=== PATIENT | female | born 1955 | race Hispanic/Latino ===

== ENCOUNTER 2018-10-06 19:55 | Emergency (ER) | payer OTHER ==
--- OUTSIDE RECORDS SUMMARY | 2018-10-06 19:57 | XMS REPORT ---
:1955 Author Organization eClinicalWorks Care Team Providers Name Role Phone Jonobrian Leah Provider Role Unavailable Allergies, Adverse Reactions, Alerts Substance Reaction Event Type Nitrofurantoin Info Not Available Drug Allergy Problems Problem Type Condition Code Onset Dates Condition Status Problem Hyperlipidemia, unspecified E78.5 Active hyperlipidemia type Problem Uncontrolled type 2 diabetes E11.65 Active mellitus without complication, without long-term current use of insulin Problem Fatigue, unspecified type R53.83 Active Assessment Hyperlipidemia, unspecified E78.5 Active hyperlipidemia type Assessment Fatigue, unspecified type R53.83 Active Problem Allergic rhinitis, unspecified J30.9 Active seasonality, unspecified trigger Assessment Uncontrolled type 2 diabetes E11.65 Active mellitus without complication, without long-term current use of insulin Medications Medication Code Code Instructions Start End Status Dosage System Date Date Glucose [facility] [address]-55 n/s Check BS February Active as directed testing strips once daily [address] [facility] 0 Check BS once February Active Use as Monitor daily 2017 [address] MetFORMIN HCl [facility] 24980990589 500 MG Orally February Active 1 tablet ER Once a day 2017 with evening meal Pravastatin [facility] 20319090816 20 MG Orally Active 1 tablet Sodium Once a day Metformin HCl [facility] 34104179882 500 MG Orally Active 1 tablet Twice a day with meals Lancets [facility] 95869695809 - Check BS February Active as directed once daily 2017 Results No Known Results Summary Purpose eClinicalWorks Submission
--- OUTSIDE RECORDS SUMMARY | 2018-10-06 19:57 | XMS REPORT ---
:1955 Author Organization e[employer] Care Team Providers Name Role Phone Moira Gutierrez Provider Role Unavailable Allergies No Known Allergies Problems Problem Type Condition Code Onset Dates Condition Status Problem Fatigue, unspecified type R53.83 Active Problem Hyperlipidemia, unspecified E78.5 Active hyperlipidemia type Problem Female incontinence N39.3 Active Problem Uncontrolled type 2 diabetes E11.65 Active mellitus without complication, without long-term current use of insulin Problem Allergic rhinitis, unspecified J30.9 Active seasonality, unspecified trigger Medications Medication Code System Code Instructions Start Date End Date Status Dosage Cipro [facility] 91649945884 500 MG Orally Jul 14, Jul 06, Active 1 tablet every 12 hrs 2017 2017 Results No Known Results Summary Purpose eClinicalWorks Submission
--- OUTSIDE RECORDS SUMMARY | 2018-10-06 19:57 | XMS REPORT ---
:1955 Author Organization eClinicalWorks Care Team Providers Name Role Phone Moira Gutierrez Provider Role Unavailable Allergies, Adverse Reactions, Alerts Substance Reaction Event Type Nitrofurantoin Info Not Available Drug Allergy Problems Problem Type Condition Code Onset Dates Condition Status Problem Fatigue, unspecified type R53.83 Active Problem Hyperlipidemia, unspecified E78.5 Active hyperlipidemia type Problem Female incontinence N39.3 Active Assessment Hematuria, unspecified type R31.9 Active Problem Uncontrolled type 2 diabetes E11.65 Active mellitus without complication, without long-term current use of insulin Problem Allergic rhinitis, unspecified J30.9 Active seasonality, unspecified trigger Medications Medication Code Code Instructions Start End Status Dosage System Date Date Blood Glucose [place] 0 Check BS once February Active Use as Monitor daily 2017 directed Lancets [facility] 57248314037 - Check BS February Active as directed once daily 2017 Glucose [facility] [address]-71 n/s Check BS February Active as directed testing strips once daily 2017 Pravastatin ND 58592019146 20 MG Orally Active 1 tablet Sodium Once a day Metformin HCl NDC 99666990293 500 MG Orally Active 1 tablet Twice a day with meals MetFORMIN HCl ND 34411979398 500 MG Orally February Active 1 tablet ER Once a day 2017 with evening meal Results Name Result Date Reference Range Unit Abnormality Flag URINALYSIS AUTO W/O SCOPE (89363) ----NIT pos [id number] ----URO 0.2 20180712 ----PROTEIN neg [id number] ----pH 7.0 20180712 ----BLO 2t [id number] ----GLUCOSE neg [id number] ----SHILO neg [id number] ----BILIRUBIN neg [id number] ----KETONES neg [id number] ----SPECIFIC GRAVITY 1.015 [id number] Summary Purpose eClinicalWorks Submission
--- OUTSIDE RECORDS SUMMARY | 2018-10-06 19:58 | XMS REPORT ---
:1955 Author Organization eClinicalWorks Care Team Providers Name Role Phone Leah Frank Provider Role Unavailable Allergies, Adverse Reactions, Alerts Substance Reaction Event Type Nitrofurantoin Info Not Available Drug Allergy Problems Problem Type Condition Code Onset Dates Condition Status Problem Allergic rhinitis, unspecified J30.9 Active seasonality, unspecified trigger Problem Fatigue, unspecified type R53.83 Active Problem Hyperlipidemia, unspecified E78.5 Active hyperlipidemia type Problem Pain of left foot M79.672 Active Problem Vitamin D deficiency E55.9 Active Problem Pain in right foot M79.671 Active Problem Female incontinence N39.3 Active Problem Uncontrolled type 2 diabetes E11.65 Active mellitus without complication, without long-term current use of insulin Problem Bilateral low back pain without M54.5 Active sciatica, unspecified chronicity Problem Controlled type 2 diabetes mellitus E11.9 Active without complication, without long-term current use of insulin Assessment Pain of left foot M79.672 Active Assessment Bilateral low back pain without M54.5 Active sciatica, unspecified chronicity Assessment Pain in right foot M79.671 Active Assessment Hyperlipidemia, unspecified E78.5 Active hyperlipidemia type Assessment Urinary frequency R35.0 Active Assessment Fatigue, unspecified type R53.83 Active Assessment Controlled type 2 diabetes mellitus E11.9 Active without complication, without long-term current use of insulin Assessment Vitamin D deficiency E55.9 Active Medications Medication Code Code Instructions Start End Status Dosage System Date Date Lancets [facility] 47662926911 - Check BS February Active as directed once daily 2017 Pravastatin ND 28785172598 20 MG Orally Active 1 tablet Sodium Once a day Glucose [facility] [address]-83 n/s Check BS February Active as directed testing strips once daily 2017 MetFORMIN HCl ND 14669223273 500 MG Orally February Active 1 tablet ER Once a day 2017 with evening meal Vitamin D [facility] 48961596035 2000 UNIT Aug 19, Active 2 capsules Orally Once a 2018 (otc--4,000 day iu) Blood Glucose ND 0 Check BS february Active Use as Monitor daily 2017 directed Results No Known Results Summary Purpose eClinicalWorks Submission
--- OUTSIDE RECORDS SUMMARY | 2018-10-06 19:58 | XMS REPORT ---
[...] Start End Status Dosage System Date Date Metformin HCl [facility] 27921584301 500 MG Orally Active 1 tablet Twice a day with meals Glucose [facility] [address]-62 n/s Check BS February Active as directed testing strips once daily 2017 MetFORMIN HCl ND 67279301699 500 MG Orally February Active 1 tablet ER Once a day 2017 with evening meal Pravastatin ND 50052209610 20 MG Orally Active 1 tablet Sodium Once a day Blood Glucose ND 0 Check BS february Active Use as Monitor daily 2017 directed Lancets [facility] 89747833968 - Check BS February Active as directed once daily 2017 Results Name Result Date Reference Range Unit Abnormality Flag URINALYSIS AUTO W/O SCOPE ([id number]) ----NIT neg [id number] ----URO 0.2 20180725 ----PROTEIN neg [id number] ----pH 6.0 20180725 ----BLO 2+ [id number] ----GLUCOSE neg [id number] ----SHILO neg [id number] ----BILIRUBIN neg [id number] ----KETONES neg [id number] ----SPECIFIC GRAVITY 1.020 20180725 Summary Purpose eClinicalWorks Submission
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
[2018-10-06] MEDS ORDERED: MUPIROCIN 2% OINT 22GM TUBE TOP ONE (21:40)
[2018-10-06] MEDS ORDERED: SILVER SULFADIAZINE 1% 25 GM TOP ONE (21:41)
== END 2018-10-06 21:56 | disposition home or self-care (01) ==
LOC: ER 19:55
DX: T21.23XA Burn of second degree of upper back, initial encounter (principal); E11.9 Type 2 diabetes mellitus without complications; E78.5 Hyperlipidemia, unspecified; T31.0 Burns involving less than 10% of body surface; X11.8XXA Contact with other hot tap-water, initial encounter; Y93.G3 Activity, cooking and baking; Y92.009 Unspecified place in unspecified non-institutional (private) residence as the place of occurrence of the external cause
CPT/HCPCS: 99283

== ENCOUNTER 2019-07-06 09:00 | Day surgery (SDC) | payer OTHER ==
[2019-07-03 11:46] LABS: Absolute Lymphocytes (CBC) 1.3 K/uL (0.7-4.9); Basophils % 0.3 % (0-1.3); Hematocrit 43.6 % (36.0-45.0); Lymphocytes % 24.3 % (15.3-44.8); MPV 9.8 fL (7.6-11.3); RBC Red Blood Cell Count 4.85 M/uL (3.86-4.86)
[2019-07-03 11:56] LABS: Urine Appearance CLEAR; Urine Bilirubin NEGATIVE (NEG); Urine Blood 2+ (NEG); Urine Color YELLOW; Urine Glucose NEGATIVE (NEG); Urine Protein NEGATIVE (NEG); Urine Specific Gravity 1.015 (1.005-1.030)
[2019-07-03 12:11] LABS: Urine Microscopic Reflex ORDER UMIC
[2019-07-03 12:32] LABS: Urine Bacteria <20 /HPF (<20); Urine RBC <5 /HPF (NONE SEEN)
[2019-07-03 12:33] LABS: Urine Culture Reflex Order NOT NEEDED
--- OUTSIDE RECORDS SUMMARY | 2019-07-06 09:02 | XMS REPORT ---
[...] Status Dosage System Date Date Metformin HCl [facility] 21393019695 500 MG Orally Active 1 tablet Twice a day with meals Glucose [facility] [address]-62 n/s Check BS February Active as directed testing strips once daily 2017 MetFORMIN HCl ND 12439982438 500 MG Orally February Active 1 tablet ER Once a day 2017 with evening meal Pravastatin ND 75287915122 20 MG Orally Active 1 tablet Sodium Once a day Blood Glucose ND 0 Check BS february Active Use as Monitor daily 2017 directed Lancets [facility] 65793681443 - Check BS February Active as directed once daily 2017 Results Name Result Date Reference Range Unit Abnormality Flag URINALYSIS AUTO W/O SCOPE (40372) ----NIT neg [id number] ----URO 0.2 20180725 ----PROTEIN neg [id number] ----pH 6.0 20180725 ----BLO 2+ 20180725 ----GLUCOSE neg [id number] ----SHILO neg [id number] ----BILIRUBIN neg [id number] ----KETONES neg [id number] ----SPECIFIC GRAVITY 1.020 20180725 Summary Purpose eClinicalWorks Submission
--- OUTSIDE RECORDS SUMMARY | 2019-07-06 09:02 | XMS REPORT ---
[...] Start Date End Date Status Dosage Cipro [facility] 33067067374 500 MG Orally Jul 14, Jul 06, Active 1 tablet every 12 hrs 2017 2017 Results No Known Results Summary Purpose eClinicalWorks Submission
--- OUTSIDE RECORDS SUMMARY | 2019-07-06 09:02 | XMS REPORT ---
:1955 Author Organization eClinicalWorks Care Team Providers Name Role Phone Leah Frank Provider Role Unavailable Allergies No Known Allergies Problems Problem Type Condition Code Onset Dates Condition Status Problem Allergic rhinitis, unspecified J30.9 Active seasonality, unspecified trigger Problem Fatigue, unspecified type R53.83 Active Problem Hyperlipidemia, unspecified E78.5 Active hyperlipidemia type Assessment Hyperlipidemia, unspecified E78.5 Active hyperlipidemia type Problem [...] Start End Status Dosage System Date Date Vitamin D [facility] 82539036330 1999 UNIT Aug 19, Active 2 capsules Orally Once a 2017 (otc--4,000 day iu) Cipro [facility] 18019998938 500 MG Orally Active 1 tablet every 12 hrs Pravastatin [facility] 03569310724 20 mg Orally Active 1 tablet Sodium Once a day in evening Glucose [facility] [address]-37 n/s Check BS February Active as directed testing strips once daily 2017 Blood Glucose [facility] 0 Check BS once February Active Use as Monitor daily 2017 directed Lancets [facility] 49785982721 - Check BS February Active as directed once daily 2017 MetFORMIN HCl ND 37699478260 500 MG Orally February Active 1 tablet ER Once a day 2017 with evening meal Results No Known Results Summary Purpose eClinicalWorks Submission
--- OUTSIDE RECORDS SUMMARY | 2019-07-06 09:02 | XMS REPORT ---
:1955 Author Organization eClinicalWorks Care Team Providers Name Role Phone Leah Frank Provider Role Unavailable Allergies, Adverse Reactions, Alerts Substance Reaction Event Type Nitrofurantoin Info Not Available Drug Allergy Problems Problem Type Condition Code Onset Dates Condition Status Problem Fatigue, unspecified type R53.83 Active Problem Controlled type 2 diabetes mellitus E11.9 Active without complication, without long-term current use of insulin Problem Female incontinence N39.3 Active Problem Abdominal bloating R14.0 Active Problem Recurrent urinary tract infection N39.0 Active Problem Overweight (BMI 25.0-29.9) E66.3 Active Problem Pain in right foot M79.671 Active Problem Bilateral low back pain without M54.5 Active sciatica, unspecified chronicity Problem Pain of left foot M79.672 Active Problem Vitamin D deficiency E55.9 Active Assessment Hyperlipidemia, unspecified E78.5 Active hyperlipidemia type Assessment Recurrent urinary tract infection N39.0 Active Assessment Overweight (BMI 25.0-29.9) E66.3 Active Assessment Vitamin D deficiency E55.9 Active Problem Allergic rhinitis, unspecified J30.9 Active seasonality, unspecified trigger Assessment Abdominal bloating R14.0 Active Problem Uncontrolled type 2 diabetes E11.65 Active mellitus without complication, without long-term current use of insulin Assessment Controlled type 2 diabetes mellitus E11.9 Active without complication, without long-term current use of insulin Problem Hyperlipidemia, unspecified E78.5 Active hyperlipidemia type Medications Medication Code Code Instructions Start End Status Dosage System Date Date Lancets [facility] [id number] - Check BS February Active as once daily 2017 directed Pravastatin [facility] 03000548172 20 mg Orally Active 1 tablet Sodium Once a day in evening Bactrim DS [facility] 56424233775 800-160 MG January Active 1 tablet Orally Twice a 2018 Glucose testing [facility] [address]-82 n/s Check BS February Active as strips once daily 2017 directed Cipro [facility] 62152145266 500 MG Orally Active 1 tablet every 12 hrs MetFORMIN HCl [facility] 06963906731 500 MG Orally February Active 1 tablet ER Once a day 2017 Vitamin D [facility] 09401427845 2000 UNIT Aug 19, Active 2 capsules Orally Once a 2017 (otc--4, day 0 iu) Trimethoprim ND 01056424298 100 MG Orally January Active 1 tablet Once a day 2018 Blood Glucose [facility] 0 Check BS once February Active Use as Monitor daily 2017 directed Results No Known Results Summary Purpose eClinicalWorks Submission
--- OUTSIDE RECORDS SUMMARY | 2019-07-06 09:02 | XMS REPORT ---
[...] current use of insulin Medications Medication Code System Code Instructions Start End Date Status Dosage Date Trimethoprim [facility] 49133143404 100 MG Orally February 06, Aug 05, Active 1 tablet Once a day 2018 2018 Results No Known Results Summary Purpose eClinicalWorks Submission
--- OUTSIDE RECORDS SUMMARY | 2019-07-06 09:02 | XMS REPORT ---
[...] End Status Dosage System Date Date Lancets [facility] 26519326190 - Check BS February Active as directed once daily 2017 Pravastatin ND 47443379198 20 MG Orally Active 1 tablet Sodium Once a day Glucose [facility] [address]-16 n/s Check BS February Active as directed testing strips once daily 2017 MetFORMIN HCl ND 79001965096 500 MG Orally February Active 1 tablet ER Once a day 2017 with evening meal Vitamin D [facility] 94826496332 2000 UNIT Aug 19, Active 2 capsules Orally Once a 2018 (otc--4,000 day iu) Blood Glucose [place] 0 Check BS february Active Use as Monitor daily 2017 directed Results No Known Results Summary Purpose eClinicalWorks Submission
--- OUTSIDE RECORDS SUMMARY | 2019-07-06 09:02 | XMS REPORT ---
[...] Use as Monitor daily 2017 directed Lancets [facility] 00733692294 - Check BS February Active as directed once daily 2017 Glucose [facility] [address]-93 n/s Check BS February Active as directed testing strips once daily 2017 Pravastatin ND 10443212488 20 MG Orally Active 1 tablet Sodium Once a day Metformin HCl NDC 85881134710 500 MG Orally Active 1 tablet Twice a day with meals MetFORMIN HCl ND 19028209521 500 MG Orally February Active 1 tablet ER Once a day 2017 with evening meal Results Name Result Date Reference Range Unit Abnormality Flag URINALYSIS AUTO W/O SCOPE (11708) ----NIT pos [id number] ----URO 0.2 20180712 ----PROTEIN neg [id number] ----pH 7.0 20180712 ----BLO 2t 20180712 ----GLUCOSE neg 20180712 ----SHILO neg [id number] ----BILIRUBIN neg [id number] ----KETONES neg [id number] ----SPECIFIC GRAVITY 1.015 [id number] Summary Purpose eClinicalWorks Submission
--- OUTSIDE RECORDS SUMMARY | 2019-07-06 09:02 | XMS REPORT ---
[...] Hyperlipidemia, unspecified E78.5 Active hyperlipidemia type Assessment Chronic UTI N39.0 Active Assessment Hematuria, unspecified type R31.9 Active Problem Pain of left foot M79.672 Active [...] Status Dosage System Date Date Blood Glucose NDC 0 Check BS once February Active Use as Monitor daily 2017 directed Cipro [facility] 64246874710 500 MG Orally Active 1 tablet every 12 hrs Pravastatin ND 55029366606 20 MG Orally Active 1 tablet Sodium Once a day Lancets [facility] 53524868487 - Check BS February Active as directed once daily 2017 Glucose [facility] [address]-05 n/s Check BS February Active as directed testing strips once daily 2017 MetFORMIN HCl ND 80350016100 500 MG Orally February Active 1 tablet ER Once a day 2017 with evening meal Vitamin D [facility] 40792170144 2000 UNIT Aug 19, Active 2 capsules Orally Once a 2018 (otc--4,000 day iu) Results No Known Results Summary Purpose eClinicalWorks Submission
--- OUTSIDE RECORDS SUMMARY | 2019-07-06 09:02 | XMS REPORT ---
[...] Hyperlipidemia, unspecified E78.5 Active hyperlipidemia type Assessment Hematuria, unspecified type R31.9 Active Assessment Chronic UTI N39.0 Active Problem Pain of left foot M79.672 [...] Medications Medication Code Code Instructions Start End Date Status Dosage System Date Glucose [facility] [address]-74 n/s Check BS February Active as testing strips once daily 2017 directed Lancets [facility] 16593676503 - Check BS February Active as once daily 2017 directed Pravastatin [facility] 36875796890 20 mg Orally Active 1 tablet Sodium Once a day in evening Cipro [facility] 30992168917 500 MG Orally Active 1 tablet every 12 hrs Blood Glucose ND 0 Check BS february Active Use as Monitor daily 2017 directed MetFORMIN HCl [facility] 02376576466 500 MG Orally February Active 1 tablet ER Once a day 2017 with evening meal Vitamin D [facility] 62943862178 2000 UNIT Aug 19, Active 2 capsules Orally Once a 2017 (otc--4, day 0 iu) Bactrim DS [facility] 57370588998 800-160 MG January Active 1 tablet Orally Twice a 2018 day Results Name Result Date Reference Range Unit Abnormality Flag URINALYSIS AUTO W/O SCOPE (97525) ----NIT pos [id number] ----URO 1.0 20190203 ----PROTEIN neg 20190203 ----pH 7.5 20190203 ----BLO 2+ 20190203 ----GLUCOSE neg 20190203 ----SHILO tr 20190203 ----BILIRUBIN neg 20190203 ----KETONES neg 20190203 ----SPECIFIC GRAVITY 1.020 20190203 UMIC with Reflex to Urine Culture ----Sqamous Epithelial <5 20190203 NONE SEEN ----Urine Culture Reflex REFLEXED [id number] Order ----Urine RBC <5 20190203 NONE SEEN ----Urine Bacteria LOADED [id number] <20 AA ----Urine WBC <5 [id number] <5 Summary Purpose eClinicalWorks Submission
--- OUTSIDE RECORDS SUMMARY | 2019-07-06 09:03 | XMS REPORT ---
:1955 Author Organization eClinicalWorks Care Team Providers Name Role Phone Leah Frank Provider Role Unavailable Allergies No Known Allergies Problems Problem Type Condition Code Onset Dates Condition Status Problem Fatigue, unspecified type R53.83 Active Problem Controlled type 2 diabetes mellitus E11.9 Active without complication, without long-term current use of insulin Problem Female incontinence N39.3 Active Problem Allergic rhinitis, unspecified J30.9 Active seasonality, unspecified trigger Problem Uncontrolled type 2 diabetes E11.65 Active mellitus without complication, without long-term current use of insulin Problem Hyperlipidemia, unspecified E78.5 Active hyperlipidemia type Problem Abdominal bloating R14.0 Active Problem Recurrent urinary tract infection N39.0 Active Problem Overweight (BMI 25.0-29.9) E66.3 Active Problem Pain in right foot M79.671 Active Problem Bilateral low back pain without M54.5 Active sciatica, unspecified chronicity Problem Pain of left foot M79.672 Active Problem Vitamin D deficiency E55.9 Active Medications No Known Medications Results No Known Results Summary Purpose eClinicalWorks Submission
[2019-07-06] MEDS ORDERED: NA CHLORIDE 0.9% 1,000 ML ONE ×3 (09:19→14:12)
[2019-07-06] MEDS ORDERED: SCOPOLAMINE HYDROBROMIDE PATCH TD ONE (09:40)
[2019-07-06] MEDS ORDERED: ROCURONIUM 50 MG/5 ML VIAL IV ONE (10:12)
[2019-07-06] MEDS ORDERED: GLYCOPYRROLATE 0.2 MG/ML SYR ONE (10:12)
[2019-07-06] MEDS ORDERED: PROPOFOL 200 MG/20 ML VIAL IV ONE (10:12)
[2019-07-06] MEDS ORDERED: LIDOCAINE 2% MPF 5 ML VIAL ONE (10:13)
[2019-07-06] MEDS ORDERED: MIDAZOLAM HCL 2 MG/2 ML INJ ONE (10:13)
[2019-07-06] MEDS ORDERED: FENTANYL CITR 250 MCG/5 ML ONE ×2 (10:13→15:32)
[2019-07-06] MEDS ORDERED: dexAMETHasone 10 MG/ML VIAL ONE (10:13)
[2019-07-06] MEDS ORDERED: ONDANSETRON 4 MG/2 ML VIAL ONE (10:17)
[2019-07-06] MEDS ORDERED: NA CHLORIDE 0.9% 0 ML ONE (10:21)
[2019-07-06] MEDS ORDERED: VASOPRESSIN 20 UNIT/ML VIAL ONE (10:21)
[2019-07-06] MEDS ORDERED: LIDOCAINE 1% W/EPI 1:100,000 MDV 20 ML VIAL ONE (10:21)
[2019-07-06] MEDS: CEFAZOLIN/SWI 2gm 2 GM/20 ML SYR ONE ×3 (10:54→11:50)
[2019-07-06] MEDS ORDERED: KETOROLAC 30 MG/ML INJ ONE (14:48)
[2019-07-06] MEDS ORDERED: EPHEDRINE SULF 50 MG/ML VIAL ONE (15:00)
[2019-07-06] MEDS ORDERED: HYDROCODONE/APAP 5/325 MG TAB ONE (16:20)
[2019-07-06] MEDS ORDERED: HYDROCODONE/APAP 5/325 MG TAB PO ONE (16:21)
--- NOTE | 2019-07-07 02:11 | OP ---
Date of Procedure: 07/06/2019 Surgeon: Alpa Whitney MD Charcoal Kiln Burner: Marie Rajput. Preoperative Diagnoses: Right complex adnexal mass, incomplete uterovaginal prolapse, uterine prolap se at stage I and anterior wall prolapse at I as well. Postoperative Diagnoses: Right complex adnexal mass, incomplete uterovaginal prolapse, uterine prola pse at stage I and anterior wall prolapse at I as well, and right ovarian complex mass, small bowel a nd sigmoid adhesions to the left ovary, significant and extensive diverticulosis of the sigmoid colon . Procedures Performed: 1.Total laparoscopic hysterectomy, bilateral salpingo-oophorectomy, pelvic washings. 2.Uterosacral ligament suspension colpopexy. 3.Laparoscopic posterior enterocele repair (modified Whitmore culdoplasty). 4.Cystoscopy. 5.Extensive small-bowel and sigmoid lysis of adhesions. That took about 50% of the case. Anesthesia: General endotracheal. Specimens: Uterus, bilateral tubes, and ovaries and pelvic washings. Complications: No complications. Drains: No drains. Condition: Stable. Findings: POP-Q -2, -2, -5 3, moderate 7, -3, -3, -3. Adhesions as dictated, appendix normal, complex right ovarian mass. The left tube very small segment was present, which was left in the uterus. Mostly tube is absent most likely from her tubal pregnan cy that she had surgery for, which she did not have specifics about. The anatomical parts that were removed during the surgery. On cystoscopy, there was hydropic change on the trigone immediately medial to the ureteric orifices. Indications: Patient is a 64-year-old referred to me from Dr. Gela Olmos for evaluation of prolaps e and recurrent urinary tract infection. Patient has history of bladder suspension "she did not have an operative note which later I am obtaining it from Dr. Kennedy from [place]." The surgery turned out to be retropubic urethropexy. She had symptoms of recurrent urinary tract infections and she had some overactive bladder symptoms, lower urinary tract symptoms. She had a right adnexal mass that we observed for about a year, it has slightly gotten larger, but no dramatic changes. It has remained at about 4 cm. Discussed the bene fits and risks of observation versus rescheduling the ultrasound following followup monitoring. Brisa ent was also unable to empty her bladder completely or if she had that sensation and urgency and freq uency were discussed as part of overactive bladder. She was offered the options of observation with followup with sonograms and pelvic exams on her adnexal mass and she was asymptomatic and then prolap se repair alone or use of a pessary, patient declined to use of the pessary, wanted to have surgical repair, although the bladder drop was never visualized on inspection of the patient. The patient was reporting it was noticed on exam. We discussed about the options of repairing this vaginally or lap aroscopically and since there was an adnexal mass, removing the uterus, tubes, and ovaries along with fixation, it sounded like the best option to the patient that is what she chose. She did not want t o have multiple followups and tests and worry about the nature of her adnexal mass. Description Of Procedure: After informed consent was verified, patient was brought to the OR, she wa s placed in a supine fashion on the operating table after general anesthesia was given, she was place d in a dorsal lithotomy position. Pelvic exam performed. Abdomen, vulva, vagina, and perineum were prepped and draped in a sterile fashion. Martinez was placed to drain the bladder and attached to cysto tubing for retrograde filling. Large VCare was fixed into place and this area was draped after Fole y was inserted and connected to the cysto tubing. A 1 cm infraumbilical incision was made with a scalpel using the open laparoscopy technique. Fascia was incised and cut tagged with 0 Vicryl sutures as retractors were placed, Ирина was introduced, co [place] tell that there was omentum right underneath the fascial layer. After inserting the camera we re alized that there was omentum through which the trocar had gone through. So 5 mm right lower quadran t port was placed and camera was placed through here. Adhesions were taken down as far as possible u sing 5 mm left lower quadrant port that was placed under direct vision with the LigaSure and with sci ssors. Once the suprapubic area and the area below it was cleared up, then the fourth port then was placed and through here, the camera was used to visualize the umbilical port. Once I was able to moises e down all the adhesions, this took about 20 minutes then started the procedure. Pelvic washings wer e performed. Patient had small bowel that was adhered all the way in the left lower quadrant to the left lateral wall to the infundibulopelvic ligament to the left ovary and sigmoid colon. The sigmoid colon was attached to the left ovary, the small bowel in the lateral wall. Dissection was performed to separate adhesion. These were also attached to the area of the left tubal removal and to the lef t round ligament. The broad ligament was opened up. Dissection was performed to separate the 2 leav es of the broad ligament where the mesosalpinx was then once the anterior leaf was dissected then I c ould get in the plane where the entire mesosalpinx could be opened up. Then the adhesions were taken down carefully with push-spread technique and scissors. Once all this was done, there was 1 area of bleed which was taken down with the help of the LigaSure, this far away from the small bowel. The s mall bowel was then released from the left lateral wall at the natural attachment of the sigmoid. On ce this was taken down, the bowel was still attached to the left ovary. This was all cleared up and the left pelvic brim was opened up and taken down with the help of the scissors. Then it was retract ed medially and the entire small bowel released on the sigmoid colon. There were diverticula here an d carefully taken down without getting close to the diverticula. Once all the adhesions were taken d own and the bowel was retracted superiorly on this mesentery, then the sigmoid colon was taken down f rom the left ovary. The left ovarian adhesions were taken down, they were very dense and systematica lly with push-spread technique windows were made and they were cut. The entire bowel was dissected o ff the ovary and the infundibulopelvic ligament was also dissected from the medial aspect of the left lateral wall, so the pelvic brim was exposed and the ureter was visualized. Once all these were ret racted medially, hysterectomy was performed mesosalpinx. Uteroovarian ligament, round ligament, broa d ligament were all taken down. The bladder flap was opened up and then posterior peritoneum dissect ed to the VCare cup. The vessels were skeletonized and vessels were taken down with the help of the LigaSure. On the opposite side, similar dissection was performed taking down the uteroovarian ligame nt, mesosalpinx. The tube was dissected off and removed through the suprapubic trocar. Then the klamath roovarian ligament was taken down, the broad ligament was taken down. They were opened up to separat e the anterior and posterior leaves and the VCare was exposed on the anterior aspect. Then vesicovag inal space was entered with a monopolar hook blade, dissected down about 2 cm, then the bladder was d issected all around to be retracted inferiorly. The vessels were taken down on the right side and th e cardinal ligaments as well. Circumferential colpotomy performed with a monopolar hook blade and th e specimen removed through the vagina. Before this was removed, we removed the ovary by opening up t he infundibulopelvic ligament, taking this down and dissecting it free from the peritoneum of the lat eral wall. The opposite side on the right side, I was able to take down the peritoneum on the medial aspect, then IP was isolated, the ovary was removed with the vessel sealer. All the specimens were placed in an EndoCatch bag, placed through the vagina, and then pulled out. There was a peritoneal m ass that was removed, it was like a calcification and was removed with the bag. The posterior cul-de-sac was dissected pulling down the rectum, the rectovaginal fascia. There was not much of fascia at the level of the posterior colpotomy and so once this was exposed at least 4 cm, this was dissected all the way to the reflection. Then anteriorly dissection was perform ed for another 3 cm so I could be exposing the anterior vaginal wall in the midline. Once this was d one, 0 PDS sutures were placed at both angles, then 2 [id number] on each side. Then in the sofia ter it was left open and the uterosacral suspension was performed. The uterosacral on the right side was much more discernible and this was picked up and plicated x2 and then it went through the final coat sprayer ior rectovaginal septum as an inferior then through the anterior pelvic fascia. A similar dissection was performed on the opposite side and tied down. This was less prominent, however, this dissection was performed based on the anatomical landmarks where they still found raised and where the ureter w as identified on the left lateral wall, which was dissected off the medial leaf of the broad ligament laterally, then the stitch was taken. This was passed through the posterior rectovaginal septum and anterior fascia and tied down. There was excellent support of the vaginal apex, it was -7. The ant erior vaginal wall, midline cystocele was still very mild, presents, -2 at the lowest. Once all this was done, I was able to perform a culdoplasty with 3-0 PDS suture starting from the uterosacral susp ension on the left, plicating the peritoneum of the posterior cul-de-sac all the way to the right klamath rosacral ligament passing it through the fascia, rectovaginal septum, and this was tied down and this took care of the posterior enterocele. The anterior peritoneum was not closed. The ureters had no evidence of electrical, mechanical, or th ermal injury to them as far as I could visualize in the superior part of the pelvic cavity. Then cys toscopy was performed with a 17-Uzbek sheath, 30-degree lens normal saline. Normal streams of urine from both ureteric orifices were seen readily. Trigone with hydropic change, but no tumors. Anteri or bladder was unremarkable. Bladder was drained. Gas was desufflated, the trocars removed under di rect vision. Fascia at the umbilicus closed with 0 Vicryl, tied on both ends and simple 0 Vicryl sti tch at the suprapubic fascial incision. All skin incisions closed with interrupted 4-0 Vicryl and pe rformed a vaginal exam to confirm that the repair appeared to be satisfactory and it was with point B A at -2 still. This was to be left alone, the genital hiatus was only 3-4 cm and appeared to be opti mal with a good posterior lift and good apical support. Instrument, needle, and sponge counts were d one and were correct at the end of the case. Patient tolerated the procedure well. She was recovere d from anesthesia and taken to PACU in stable condition. She will follow up with me in 1 week. She was given instructions for clear liquid diet and advance gradually bowel regimen with stress and hand outs were given appropriately. She will follow up with me in 1 week. LENNY/MARIXA Voice ID: [id number] Report ID: [id number]
== END 2019-07-06 17:20 | disposition home or self-care (01) ==
LOC: OR 09:00
PROVIDERS: ATTEND Obstetrics & Gynecology
PROC: 0UT2FZZ Resection of Bilateral Ovaries, Via Natural or Artificial Opening With Percutaneous Endoscopic Assistance (ICD-10-PCS; 2019-07-06)
PROC: 0UT7FZZ Resection of Bilateral Fallopian Tubes, Via Natural or Artificial Opening With Percutaneous Endoscopic Assistance (ICD-10-PCS; 2019-07-06)
PROC: 0USG7ZZ Reposition Vagina, Via Natural or Artificial Opening (ICD-10-PCS; 2019-07-06)
PROC: 0UT9FZZ Resection of Uterus, Via Natural or Artificial Opening With Percutaneous Endoscopic Assistance (ICD-10-PCS; principal; 2019-07-06 10:30)
DX: N81.2 Incomplete uterovaginal prolapse (principal); D25.9 Leiomyoma of uterus, unspecified; N83.202 Unspecified ovarian cyst, left side; N83.201 Unspecified ovarian cyst, right side; K57.30 Diverticulosis of large intestine without perforation or abscess without bleeding; K66.0 Peritoneal adhesions (postprocedural) (postinfection); E11.9 Type 2 diabetes mellitus without complications; E78.00 Pure hypercholesterolemia, unspecified; Z90.49 Acquired absence of other specified parts of digestive tract; Z88.3 Allergy status to other anti-infective agents; Z80.3 Family history of malignant neoplasm of breast; Z83.3 Family history of diabetes mellitus; Z82.49 Family history of ischemic heart disease and other diseases of the circulatory system
CPT/HCPCS: 85025; 36415; 86900; 88108; 86850; 86901; 82962 ×2; 88305; 88307; 58552; 57283; J2704; J2250; J3010 ×2; J1100; J0690; J7030 ×3; J2405; 81003; 81015

== ENCOUNTER 2019-10-23 07:42 | Emergency (ER) | payer OTHER ==
--- OUTSIDE RECORDS SUMMARY | 2019-10-23 07:45 | XMS REPORT ---
:1955 Author Organization eClinicalWorks Care Team Providers Name Role Phone Leah Frank Provider Role Unavailable Allergies No Known Allergies Problems Problem Type Condition Code Onset Dates Condition Status Problem Controlled type 2 diabetes mellitus E11.9 Active without complication, without long-term current use of insulin Problem Pain of left foot M79.672 Active Problem Bilateral low back pain without M54.5 Active sciatica, unspecified chronicity Problem Fluctuating blood pressure I99.8 Active Problem S/P hysterectomy Z90.710 Active Problem Dizziness R42 Active Problem Overweight (BMI 25.0-29.9) E66.3 Active Problem Vitamin D deficiency E55.9 Active Problem Recurrent urinary tract infection N39.0 Active Problem Abdominal bloating R14.0 Active Problem Hyperlipidemia, unspecified E78.5 Active hyperlipidemia type Problem Fatigue, unspecified type R53.83 Active Problem Allergic rhinitis, unspecified J30.9 Active seasonality, unspecified trigger Problem Female incontinence N39.3 Active Problem Uncontrolled type 2 diabetes E11.65 Active mellitus without complication, without long-term current use of insulin Problem Pain in right foot M79.671 Active Medications No Known Medications Results No Known Results Summary Purpose eClinicalWorks Submission
[2019-10-23] MEDS ORDERED: NA CHLORIDE 0.9% 500 ML ONE (08:15)
[2019-10-23] MEDS ORDERED: MECLIZINE HCL 12.5 MG TAB ONE (08:15)
[2019-10-23 08:24] LABS: Absolute Lymphocytes (CBC) 0.9 K/uL (0.7-4.9); Basophils % 0.6 % (0-1.3); Hematocrit 39.1 % (36.0-45.0); Lymphocytes % 22.5 % (15.3-44.8); RBC Red Blood Cell Count 4.41 M/uL (3.86-4.86)
--- NOTE | 2019-10-23 08:26 | RAD REPORT ---
EXAM DESCRIPTION: CT - Head Brain Wo Cont - 10/23/2019 8:17 am CLINICAL HISTORY: Dizziness COMPARISON: None. TECHNIQUE: Computed axial tomography of the head was obtained. IV contrast was not requested. All CT scans are performed using dose optimization technique as appropriate and may include automated exposure control or mA/KV adjustment according to patient size. FINDINGS: An intracranial bleed is not seen . The ventricles are normal in caliber. No extra-axial fluid collection is noted. Empty sella turcica is noted. Fluid within the sinuses/ mastoids is not seen. IMPRESSION: No acute intracranial abnormality is seen. If patient's symptoms persist MRI of the bra in would be recommended.
[2019-10-23 08:41] LABS: ALT/SGPT 29 U/L (12-78); AST/SGOT 16 U/L (15-37); Albumin 3.8 g/dL (3.4-5.0); Alkaline Phosphatase 69 U/L (45-117); BUN Blood Urea Nitrogen 16 mg/dL (7-18); Bicarbonate 28 mmol/L (21-32); Bilirubin Direct 0.2 mg/dL (0-0.2); Bilirubin Total 0.9 mg/dL (0.2-1.0); Glucose Level 126 mg/dL (74-106); Lipase 80 U/L (73-393); Potassium 3.6 mmol/L (3.5-5.1); Protein, Total 7.2 g/dL (6.4-8.2); Sodium Level 141 mmol/L (136-145); Troponin (Emerg Dept Use Only) < 0.02 ng/mL (0.0-0.045)
[2019-10-23] MEDS ORDERED: ONDANSETRON 4 MG/2 ML VIAL ONE (08:44)
--- NOTE | 2019-10-23 11:09 | RAD REPORT ---
EXAM DESCRIPTION: MRI - Brain Wo Cont - 10/23/2019 10:51 am CLINICAL HISTORY: DIZZINESS Headache, drowsiness, CVA symptomology COMPARISON: Head Brain Wo Cont dated 10/23/2019 TECHNIQUE: Multi-sequence, multiplanar MR imaging of the brain was performed without contrast. FINDINGS: No intracranial hemorrhage, hydrocephalus or extra-axial fluid collections.Mild T2 and FLA IR hyperintensity in the periventricular region is most compatible with chronic microvascular ischemi c changes. No edema or shift of midline structures. No findings to suspect brain mass. DWI is negativ e for acute CVA. Midline structures are normally formed. Mild mucosal thickening involves both maxillary antra. Trace right mastoid effusion. IMPRESSION: Negative for acute CVA or other acute intracranial abnormality.
--- NOTE | 2019-10-23 12:08 | ER ---
Nurse's Notes [facility] Name: Jailyn Walls Age: 64 yrs Sex: Female : 1955 Arrival Date: 10/23/2019 Time: 07:44 Bed 13 Private MD: Leah Frank Diagnosis: Vertigo Presentation: 10/23 07:45 Presenting complaint: Patient states: "For the last two weeks I've been waking up with aa5 a headache, dizzy, and nauseated". Pt reports vomiting since yesterday. Pt states "I've had this before and they did a CT scan of my head and they said it wasn't vertigo but that there was something to do with my ear". Pt reports symptoms got worse on Wednesday. Pt also reports intermittent tingling to left arm. 07:45 Transition of care: patient was not received from another setting of care. Onset of aa5 symptoms was 2018. Risk Assessment: Do you want to hurt yourself or someone else? Patient reports no desire to harm self or others. Initial Sepsis Screen: Does the patient meet any 2 criteria? No. Patient's initial sepsis screen is negative. Does the patient have a suspected source of infection? No. Patient's initial sepsis screen is negative. Care prior to arrival: None. 07:45 Acuity: NILSA 3 aa5 07:45 Method Of Arrival: Ambulatory aa5 Historical: - Allergies: 07:47 No Known Allergies; aa5 - Home Meds: 07:47 Metformin Oral [Active]; pravastatin Oral [Active]; aa5 - PMHx: 07:47 Diabetes - NIDDM; Hyperlipidemia; aa5 - PSHx: 07:47 Cholecystectomy; aa5 - Immunization history:: Adult Immunizations unknown. - Social history:: Smoking status: Patient/guardian denies using tobacco. - Ebola Screening: : No symptoms or risks identified at this time. - Family history:: not pertinent. - Hospitalizations: : No recent hospitalization is reported. Screenin:07 Abuse screen: Denies threats or abuse. Nutritional screening: No deficits noted. aa5 Tuberculosis screening: No symptoms or risk factors identified. Fall Risk None identified. Assessment: 07:45 General: Appears uncomfortable, Behavior is calm, cooperative. Pain: Complains of pain aa5 in occipital area and forehead Pain does not radiate. Pain currently is 7 out of 10 on a pain scale. Quality of pain is described as aching, Pain began 2 weeks ago Is intermittent. Neuro: Level of Consciousness is awake, alert, obeys commands, Oriented to person, place, time, situation, Senior Professional Services Consultant are equal bilaterally Moves all extremities. Gait is steady, Speech is normal, Facial symmetry appears normal, Pupils are PERRLA, Reports dizziness, headache intermittent tingling to left arm . Cardiovascular: Heart tones S1 S2 present Rhythm is regular. Respiratory: Airway is patent Respiratory effort is even, unlabored, Respiratory pattern is regular, symmetrical. GI: Abdomen is round Bowel sounds present X 4 quads. Abd is soft and non tender X 4 quads. Reports Nausea x 2 weeks ago and vomiting since yesterday. : No signs and/or symptoms were reported regarding the genitourinary system. EENT: No signs and/or symptoms were reported regarding the EENT system. Derm: Skin is pink, warm \\T\\ dry. Musculoskeletal: Range of motion: intact in all extremities. 08:45 Reassessment: Patient is alert, oriented x 3, equal unlabored respirations, skin aa5 warm/dry/pink. Pt reports nausea. MD was notified. . 09:42 Reassessment: Patient is alert, oriented x 3, equal unlabored respirations, skin aa5 warm/dry/pink. Patient states feeling better. Patient states symptoms have improved. Awaiting MRI, approximately 1 hour wait time, pt notified and verbalized understanding. Pt currently sitting up in bed watching TV. . 10:25 Reassessment: Pt to MRI. aa5 10:25 Reassessment: Patient is alert, oriented x 3, equal unlabored respirations, skin aa5 warm/dry/pink. 11:48 Reassessment: MD at bedside . aa5 11:48 Reassessment: Patient is alert, oriented x 3, equal unlabored respirations, skin aa5 warm/dry/pink. Patient states feeling better. 12:27 Reassessment: Patient is alert, oriented x 3, equal unlabored respirations, skin aa5 warm/dry/pink. Vital Signs: 07:46 BP 132 / 79; Pulse 78; Resp 16 S; Temp 98.0(O); Pulse Ox 97% on R/A; Weight 73.48 kg aa5 (R); Height 5 ft. 0 in. (152.40 cm) (R); Pain 7/10; 08:43 BP 123 / 64; Pulse 71; Resp 18 S; Pulse Ox 97% on R/A; aa5 09:38 BP 117 / 69; Pulse 71; Resp 16 S; Pulse Ox 98% on R/A; Pain 5/10; aa5 11:01 BP 126 / 74; Pulse 73; Resp 16 S; Temp 98.1(O); Pulse Ox 96% on R/A; aa5 12:00 BP 112 / 74; Pulse 70; Resp 18 S; Pulse Ox 97% on R/A; aa5 07:46 Body Mass Index 31.64 (73.48 kg, 152.40 cm) aa5 [place] Coma Score: 12:05 Eye Response: spontaneous(4). Verbal Response: oriented(5). Motor Response: obeys rn commands(6). Total: 15. ED Course: 07:44 Patient arrived in ED. as 07:45 Leah Frank MD is Private Physician. as 07:45 Arm band placed on Patient placed in an exam room, on a stretcher. aa5 07:45 Patient has correct armband on for positive identification. Placed in gown. Bed in low aa5 position. Call light in reach. Side rails up X2. child day care teacher on. Pulse ox on. NIBP on. 07:47 Milton Hubbard MD is Attending Physician. rn 07:58 Swathi Kirk, RAFAEL is Primary Nurse. aa5 08:07 Triage completed. aa5 08:14 Inserted saline lock: 20 gauge in right forearm, using aseptic technique. Blood vc collected. 08:16 CT completed. Patient tolerated procedure well. Patient moved to CT via wheelchair. sw Patient moved back from CT. 08:18 CT Head Brain wo Cont In Process Unspecified. EDMS 09:08 EKG done, by restorative care technician. reviewed by Milton Hubbard MD. tc 09:40 Urine collected: clean catch specimen, clear. aa5 10:45 Brain Wo Cont MRI In Process Unspecified. EDMS 12:24 No provider procedures requiring assistance completed. IV discontinued, intact, aa5 bleeding controlled, No redness/swelling at site. Pressure dressing applied. Administered Medications: 08:20 Drug: Meclizine 50 mg Route: PO; vc 08:48 Follow up: Response: No adverse reaction aa5 08:20 Drug: NS 0.9% 500 ml Route: IV; Rate: bolus; Site: right forearm; vc 08:47 Follow up: IV Status: Completed infusion; IV Intake: 500ml aa5 08:46 Drug: Zofran 4 mg Route: IVP; Site: right forearm; aa5 08:50 Follow up: Response: No adverse reaction aa5 Intake: 08:47 IV: 500ml; Total: 500ml. aa5 Outcome: 12:07 Discharge ordered by . rn 12:24 Discharged to home ambulatory. aa5 12:24 Condition: improved 12:24 Discharge instructions given to patient, Instructed on discharge instructions, follow up and referral plans. medication usage, Demonstrated understanding of instructions, follow-up care, medications, Prescriptions given X 2. 12:27 Patient left the ED. aa5 Signatures: Dispatcher [employer] Ayala Mina Roman, MD MD rn Calderon, Audri RN RN aa5 Mayra Rao, assessment consultant EKG Carmita Shell Vanessa, RN RN vc
--- NOTE | 2019-10-23 12:08 | EDPHYS ---
Physician Documentation [facility] Name: Jailyn Walls Age: 64 yrs Sex: Female : 1955 Arrival Date: 10/23/2019 Time: 07:44 Bed 13 Private MD: Leah Frank ED Physician Milton Hubbard HPI: 10/23 08:05 This 64 yrs old Female presents to ER via Unassigned with complaints of rn Headache, Dizziness, Vomiting. 08:05 The patient complains of pain to the forehead. The patient describes the headache as rn aching. Onset: The symptoms/episode began/occurred 2 week(s) ago. Associated signs and symptoms: Pertinent positives: dizziness, nausea, vomiting, Pertinent negatives: altered mental status, fever, neck stiffness, rash, vision loss. Severity of symptoms: At its worst the pain was mild, in the emergency department the pain has improved. Headache History: The patient has had previous headaches and this one is similar to previous episodes. The symptoms are alleviated by nothing. the symptoms are aggravated by nothing. The patient has experienced similar episodes in the past. Reports headache for 2 weeks, assoc with dizziness, when gets dizzy and headache, feels nauseated, better when throws up. + non-bloody diarrhea that she attributes to metformin. No head injury. Denies focal neurological complaints. No vision loss. No chest pain/sob/fever/neck stiffness or pain. Has had similar episodes in past that got better with medication. . Historical: - Allergies: 07:47 No Known Allergies; aa5 - Home Meds: 07:47 Metformin Oral [Active]; pravastatin Oral [Active]; aa5 - PMHx: 07:47 Diabetes - NIDDM; Hyperlipidemia; aa5 - PSHx: 07:47 Cholecystectomy; aa5 - Immunization history:: Adult Immunizations unknown. - Social history:: Smoking status: Patient/guardian denies using tobacco. - Ebola Screening: : No symptoms or risks identified at this time. - Family history:: not pertinent. - Hospitalizations: : No recent hospitalization is reported. ROS: 08:05 Constitutional: Negative for fever, chills, and weight loss, Eyes: Negative for injury, rn pain, redness, and discharge, Neck: Negative for injury, pain, and swelling, Cardiovascular: Negative for chest pain, palpitations, and edema, Respiratory: Negative for shortness of breath, cough, wheezing, and pleuritic chest pain, Abdomen/GI: Negative for abdominal pain, and constipation, MS/Extremity: Negative for injury and deformity, Skin: Negative for injury, rash, and discoloration, Neuro: Negative for weakness, numbness, tingling, and seizure. Exam: 08:05 Constitutional: This is a well developed, well nourished patient who is awake, alert, rn and in no acute distress. Head/Face: Normocephalic, atraumatic. Eyes: Pupils equal round and reactive to light, extra-ocular motions intact. Lids and lashes normal. Conjunctiva and sclera are non-icteric and not injected. Cornea within normal limits. Periorbital areas with no swelling, redness, or edema. ENT: MMM Neck: Trachea midline, no thyromegaly or masses palpated, and no cervical lymphadenopathy. Supple, full range of motion without nuchal rigidity, or vertebral point tenderness. No Meningismus. Cardiovascular: Regular rate and rhythm. No pulse deficits. Respiratory: No increased work of breathing, no retractions or nasal flaring. Abdomen/GI: soft, non-tender MS/ Extremity: Pulses equal, no cyanosis. Neurovascular intact. Full, normal range of motion. Equal circumference. Neuro: Awake and alert, GCS 15, oriented to person, place, time, and situation. Cranial nerves II-XII grossly intact. Motor strength 5/5 in all extremities. Sensory grossly intact. cerebellar exam normal. Vital Signs: 07:46 BP 132 / 79; Pulse 78; Resp 16 S; Temp 98.0(O); Pulse Ox 97% on R/A; Weight 73.48 kg aa5 (R); Height 5 ft. 0 in. (152.40 cm) (R); Pain 7/10; 08:43 BP 123 / 64; Pulse 71; Resp 18 S; Pulse Ox 97% on R/A; aa5 09:38 BP 117 / 69; Pulse 71; Resp 16 S; Pulse Ox 98% on R/A; Pain 5/10; aa5 11:01 BP 126 / 74; Pulse 73; Resp 16 S; Temp 98.1(O); Pulse Ox 96% on R/A; aa5 12:00 BP 112 / 74; Pulse 70; Resp 18 S; Pulse Ox 97% on R/A; aa5 07:46 Body Mass Index 31.64 (73.48 kg, 152.40 cm) aa5 [place] Coma Score: 12:05 Eye Response: spontaneous(4). Verbal Response: oriented(5). Motor Response: obeys rn commands(6). Total: 15. MDM: 07:47 Patient medically screened. rn 12:05 Differential diagnosis: hypertensive headache, migraine, tension headache, vasomotor rn headache, vertigo. Data reviewed: vital signs, nurses notes, lab test result(s), EKG, radiologic studies, CT scan, MRI, and as a result, I will discharge patient. Counseling: I had a detailed discussion with the patient and/or guardian regarding: the historical points, exam findings, and any diagnostic results supporting the discharge/admit diagnosis, lab results, radiology results, the need for outpatient follow up, to return to the emergency department if symptoms worsen or persist or if there are any questions or concerns that arise at home. Response to treatment: the patient's symptoms have markedly improved after treatment, and as a result, I will discharge patient. Special discussion: I discussed with the patient/guardian in detail that at this point there is no indication for admission to the hospital. It is understood, however, that if the symptoms persist or worsen the patient needs to return immediately for re-evaluation. ED course: Pt improved, neg w/u including ecg/bloodwork/CT/MRI, and hx of vertigo, will dc home with meclizine, zofran prn, and f/u with pcp. . 10/23 07:58 Order name: Hepatic Function; Complete Time: 08:55 rn 10/23 07:58 Order name: Basic Metabolic Panel; Complete Time: 08:55 rn 10/23 07:58 Order name: CBC with Diff; Complete Time: 08:32 rn 10/23 07:58 Order name: Lipase; Complete Time: 08:55 rn 10/23 07:58 Order name: Troponin (emerg Dept Use Only); Complete Time: 08:55 rn 10/23 09:40 Order name: Urine Dipstick--Ancillary (enter results) bd 10/23 07:58 Order name: CT Head Brain wo Cont; Complete Time: 08:32 rn 10/23 07:58 Order name: EKG; Complete Time: 07:59 rn 10/23 07:58 Order name: Cardiac monitoring; Complete Time: 07:58 rn 10/23 07:58 Order name: EKG - Nurse/Tech; Complete Time: 08:58 rn 10/23 08:33 Order name: Brain Wo Cont MRI; Complete Time: 11:41 rn 10/23 07:58 Order name: IV Saline Lock; Complete Time: 08:11 rn 10/23 07:58 Order name: Labs collected and sent; Complete Time: 08:12 rn 10/23 07:58 Order name: NPO; Complete Time: 07:58 rn 10/23 07:58 Order name: O2 Per Protocol; Complete Time: 07:58 rn 10/23 07:58 Order name: O2 Sat Monitoring; Complete Time: 07:59 rn 10/23 07:58 Order name: Urine Dipstick-Ancillary (obtain specimen); Complete Time: 09:40 rn Administered Medications: 08:20 Drug: Meclizine 50 mg Route: PO; vc 08:48 Follow up: Response: No adverse reaction aa5 08:20 Drug: NS 0.9% 500 ml Route: IV; Rate: bolus; Site: right forearm; vc 08:47 Follow up: IV Status: Completed infusion; IV Intake: 500ml aa5 08:46 Drug: Zofran 4 mg Route: IVP; Site: right forearm; aa5 08:50 Follow up: Response: No adverse reaction aa5 Disposition: 10/23/19 12:07 Discharged to Home. Impression: Vertigo. - Condition is Stable. - Discharge Instructions: Vertigo. - Prescriptions for Zofran ODT 4 mg Oral tablet,disintegrating - place 1 tablet by TRANSLINGUAL route every 8 hours As needed; 20 tablet. Meclizine 25 mg Oral Tablet - take 1 tablet by ORAL route every 8 hours As needed; 30 tablet. - Medication Reconciliation Form, Thank You Letter, Antibiotic Education, Prescription Opioid Use form. - Follow up: Private Physician; When: As needed; Reason: Recheck today's complaints, Re-evaluation by your physician. - Problem is new. - Symptoms have improved. Signatures: Dispatcher [employer] EDMilton Thapa MD MD rn Calderon, Audri, RN RN aa5 Pamella Garcia RN RN vc Corrections: (The following items were deleted from the chart) 12:27 12:07 10/23/2019 12:07 Discharged to Home. Impression: Vertigo. Condition is Stable. aa5 Forms are Medication Reconciliation Form, Thank You Letter, Antibiotic Education, Prescription Opioid Use. Follow up: Private Physician; When: As needed; Reason: Recheck today's complaints, Re-evaluation by your physician. Problem is new. Symptoms have improved. rn
[2019-10-23 12:57] VITALS: TEMP 98
[2019-10-23 13:00] VITALS: BP 117/69; O2SAT 98
--- NOTE | 2019-10-23 13:01 | EKG ---
Test Date: 2019-10-23 Test Time: 08:52:43 Operations Supervisor [employer] Cleaning: JENNIFER MEASUREMENT RESULTS: Intervals: Rate: 68 IN: 158 QRSD: 130 QT: 458 QTc: 487 Chaplin: P: 28 IN: 158 QRS: 32 T: 32 INTERPRETIVE STATEMENTS: Normal sinus rhythm Right bundle branch block Abnormal ECG No previous ECG available for comparison Electronically Signed On 10-23-19 13:00:07 PLUG PASTER by Jaguar Bansal
[2019-10-23 13:56] LABS: Urine Blood 1+ (NEG); Urine Glucose NEGATIVE (NEG); Urine Protein NEGATIVE (NEG); Urine pH 6.5 (5.0-7.0)
== END 2019-10-23 12:27 | disposition home or self-care (01) ==
LOC: ER 07:42
DX: R42 Dizziness and giddiness (principal)
CPT/HCPCS: 93005; 85025; 80048; 36415; 80076; 81003; 84484; 83690; 70450; 70551; 96374; 99285; J8597; J7040; J2405

== ENCOUNTER 2020-01-13 08:08 | Emergency (ER) | payer BC, OTHER ==
--- OUTSIDE RECORDS SUMMARY | 2020-01-13 08:10 | XMS REPORT ---
:1955 [facility] Address [address] [place] [address] Dr. Brown [address] [place] [id number] Care Team Providers Name Role Phone Unavailable Unavailable Unavailable Problems This patient has no known problems. Allergies, Adverse Reactions, Alerts This patient has no known allergies or adverse reactions. Medications This patient has no known medications.
--- OUTSIDE RECORDS SUMMARY | 2020-01-13 08:11 | XMS REPORT ---
[...] chronicity Problem Fluctuating blood pressure I99.8 Active Assessment Lower abdominal pain R10.30 Active Problem S/P hysterectomy Z90.710 Active Assessment Follow-up exam Z09 Active Assessment Hyperlipidemia, unspecified E78.5 Active hyperlipidemia type Problem Dizziness R42 Active Problem Overweight (BMI 25.0-29.9) E66.3 Active Problem Vitamin D deficiency E55.9 Active Problem Recurrent urinary tract infection N39.0 Active Problem Abdominal bloating R14.0 Active Assessment Controlled type 2 diabetes mellitus E11.9 Active without complication, without long-term current use of insulin Assessment Acute nonintractable headache, R51 Active unspecified headache type Assessment Dizziness R42 Active Problem Hyperlipidemia, unspecified E78.5 Active hyperlipidemia type Problem Fatigue, unspecified type R53.83 Active Assessment Overweight (BMI 25.0-29.9) E66.3 Active Problem Allergic rhinitis, unspecified J30.9 Active seasonality, unspecified trigger Problem Female incontinence N39.3 Active Assessment Vitamin D deficiency E55.9 Active Problem Uncontrolled type 2 diabetes E11.65 Active mellitus without complication, without long-term current use of insulin Problem Pain in right foot M79.671 Active Medications Medication Code Code Instructions Start End Status Dosage System Date Date Cipro [facility] 34233035477 500 MG Orally Active 1 tablet every 12 hrs Gabapentin [place] 10640501090 300 MG Orally Oct 27, Active 1 capsule Twice a day 2018 as needed for pain Lancets [facility] 80081357301 - Check BS February Active as directed once daily 2017 Vitamin D [facility] 51151559505 2000 UNIT Active 2 capsules Orally Once a (otc--4,000 day iu) Pravastatin [facility] 41113113827 20 MG Orally Active 1 tablet Sodium Once a day in evening MetFORMIN HCl [facility] 90490040502 500 MG Orally Active 1 tablet ER Once a day Blood Glucose [facility] 0 Check BS once February Active Use as Monitor daily 2017 directed Glucose [facility] [address]-63 n/s Check BS February Active as directed testing strips once daily 2017 Results No Known Results Summary Purpose eClinicalWorks Submission
[2020-01-13] MEDS ORDERED: ONDANSETRON 4 MG/2 ML VIAL ONE (08:58)
[2020-01-13] MEDS ORDERED: MORPHINE 4 MG/ML SYR ONE (08:58)
[2020-01-13] MEDS ORDERED: NA CHLORIDE 0.9% 1,000 ML ONE (08:58)
[2020-01-13 09:04] LABS: Absolute Lymphocytes (CBC) 1.2 K/uL (0.7-4.9); Basophils % 0.4 % (0-1.3); Hematocrit 40.9 % (36.0-45.0); Lymphocytes % 22.1 % (15.3-44.8); MPV 9.4 fL (7.6-11.3); RBC Red Blood Cell Count 4.62 M/uL (3.86-4.86)
[2020-01-13 09:34] LABS: ALT/SGPT 23 U/L (12-78); AST/SGOT 15 U/L (15-37); Albumin 3.5 g/dL (3.4-5.0); Alkaline Phosphatase 67 U/L (45-117); BUN Blood Urea Nitrogen 10 mg/dL (7-18); Bicarbonate 29 mmol/L (21-32); Bilirubin Direct 0.2 mg/dL (0-0.2); Bilirubin Total 0.7 mg/dL (0.2-1.0); Glucose Level 98 mg/dL (74-106); Lipase 74 U/L (73-393); Protein, Total 7.3 g/dL (6.4-8.2); Sodium Level 142 mmol/L (136-145)
--- NOTE | 2020-01-13 10:23 | RAD REPORT ---
EXAM DESCRIPTION: CTAbdomen Pelvis W Contrast - 01/13/2020 9:53 am CLINICAL HISTORY: Abdominal pain. ABD PAIN COMPARISON: Abdomen Pelvis W Contrast dated 06/06/2018 TECHNIQUE: Biphasic CT imaging of the abdomen and pelvis was performed with 100 ml non-ionic IV cont rast. All CT scans are performed using dose optimization technique as appropriate and may include automated exposure control or mA/KV adjustment according to patient size. FINDINGS: Mild linear atelectasis is present both lung bases.Cholecystectomy clips. The liver, spleen, pancreas, adrenal glands and left kidney are within normal limits. Several small r ight renal cysts. No bowel obstruction, free air, free fluid or abscess. Sigmoid diverticulosis coli is present. There is reticulation in the fat surrounding the sigmoid diverticula compatible with mild acute diverticuli tis. No abscess. The appendix is normal. No evidence of significant lymphadenopathy. Tiny air bubble seen in bladder. No suspicious bony findings. IMPRESSION: Mild acute sigmoid diverticulitis is present without abscess. Tiny air bubbles bladder may be related to infection or recent instrumentation.
[2020-01-13 10:37] LABS: Urine Blood 1+ (NEG); Urine Glucose NEGATIVE (NEG); Urine Protein NEGATIVE (NEG)
[2020-01-13 10:44] LABS: Urine Bacteria >50 /HPF (<20); Urine Culture Reflex Order REFLEXED; Urine RBC <5 /HPF (NONE SEEN)
--- NOTE | 2020-01-13 11:34 | EDPHYS ---
Physician Documentation [facility] Name: Jailyn Walls Age: 64 yrs Sex: Female : 1955 Arrival Date: 01/13/2020 Time: 08:17 Bed 8 Private MD: Leah Frank ED Physician Kenji Saavedra HPI: 08:39 This 64 yrs old Female presents to ER via Ambulatory with complaints of pm1 Abdominal Pain, Headache. 08:39 The patient presents with abdominal pain in the lower abdomen. Onset: The pm1 symptoms/episode began/occurred 1 week(s) ago. The symptoms do not radiate. 08:39 Associated signs and symptoms: Pertinent positives: diarrhea, nausea, Pertinent pm1 negatives: chest pain, dysuria, fever, shortness of breath, vomiting. The symptoms are described as sharp. Modifying factors: The symptoms are alleviated by nothing, the symptoms are aggravated by food. Severity of pain: in the emergency department the pain is unchanged. The patient has not experienced similar symptoms in the past. The patient has not recently seen a physician. Historical: - Allergies: 08:25 No Known Allergies; iw - Home Meds: 08:25 metformin 500 mg oral TG24 daily [Active]; pravastatin 20 mg oral tab once daily iw [Active]; - PMHx: 08:25 Diabetes - NIDDM; Hyperlipidemia; iw - PSHx: 08:25 Cholecystectomy; Hysterectomy; iw - Immunization history:: Adult Immunizations up to date. - Social history:: Smoking status: Patient denies any tobacco usage or history of. ROS: 08:39 Constitutional: Negative for fever, chills, and weight loss, Cardiovascular: Negative pm1 for chest pain, palpitations, and edema, Respiratory: Negative for shortness of breath, cough, wheezing, and pleuritic chest pain. 08:39 Back: Negative for injury and pain, : Negative for injury, bleeding, discharge, and swelling, MS/Extremity: Negative for injury and deformity, Skin: Negative for injury, rash, and discoloration. 08:39 Abdomen/GI: Positive for abdominal pain, nausea, diarrhea, Negative for vomiting. 08:39 Neuro: Positive for headache. 08:39 All other systems are negative. Exam: 08:39 Constitutional: This is a well developed, well nourished patient who is awake, alert, pm1 and in no acute distress. Head/Face: Normocephalic, atraumatic. Eyes: Pupils equal round and reactive to light, extra-ocular motions intact. Lids and lashes normal. Conjunctiva and sclera are non-icteric and not injected. Cornea within normal limits. Periorbital areas with no swelling, redness, or edema. ENT: Nares patent. No nasal discharge, no septal abnormalities noted. Tympanic membranes are normal and external auditory canals are clear. Oropharynx with no redness, swelling, or masses, exudates, or evidence of obstruction, uvula midline. Mucous membranes moist. Neck: Trachea midline, no thyromegaly or masses palpated, and no cervical lymphadenopathy. Supple, full range of motion without nuchal rigidity, or vertebral point tenderness. No Meningismus. Chest/axilla: Normal chest wall appearance and motion. Nontender with no deformity. No lesions are appreciated. Cardiovascular: Regular rate and rhythm with a normal S1 and S2. No gallops, murmurs, or rubs. Normal PMI, no JVD. No pulse deficits. Respiratory: Lungs have equal breath sounds bilaterally, clear to auscultation and percussion. No rales, rhonchi or wheezes noted. No increased work of breathing, no retractions or nasal flaring. 08:39 Back: No spinal tenderness. No costovertebral tenderness. Full range of motion. Skin: Warm, dry with normal turgor. Normal color with no rashes, no lesions, and no evidence of cellulitis. MS/ Extremity: Pulses equal, no cyanosis. Neurovascular intact. Full, normal range of motion. 08:39 Abdomen/GI: Inspection: obese Bowel sounds: normal, in all quadrants, Palpation: soft, mild abdominal tenderness, in the suprapubic area, mass, is not appreciated, rebound tenderness, is not appreciated. 08:39 Neuro: Exam negative for acute changes, Orientation: is normal, Motor: is normal, moves all fours. 08:39 Neuro: Cranial nerves: CN II- XII are normal as tested, Cerebellar function: normal pm1 finger to nose testing. Vital Signs: 08:22 BP 173 / 90; Pulse 72; Resp 16; Temp 97.4; Pulse Ox 98% on R/A; Weight 72.57 kg; Height iw 5 ft. 1 in. (154.94 cm); Pain 9/10; 09:00 BP 127 / 75; Pulse 80; Resp 16 S; Pulse Ox 99% on R/A; Pain 6/10; aa5 10:17 BP 135 / 63; Pulse 70; Resp 16 S; Pulse Ox 98% on R/A; aa5 11:30 BP 133 / 57; Pulse 71; Resp 18 S; Pulse Ox 98% on R/A; aa5 08:22 Body Mass Index 30.23 (72.57 kg, 154.94 cm) iw MDM: 08:29 Patient medically screened. [facility] 10:26 Data reviewed: vital signs. Data interpreted: Pulse oximetry: on room air is 98 %. pm1 Interpretation: normal. 10:53 Counseling: I had a detailed discussion with the patient and/or guardian regarding: the pm1 historical points, exam findings, and any diagnostic results supporting the discharge/admit diagnosis, lab results, radiology results, the need for outpatient follow up, for definitive care, a lobby porter, to return to the emergency department if symptoms worsen or persist or if there are any questions or concerns that arise at home. 08:31 Order name: Basic Metabolic Panel; Complete Time: 09:40 pm 08:31 Order name: CBC with Diff; Complete Time: 09:26 pm 08:31 Order name: Creatinine for Radiology; Complete Time: 09:40 pm 08:31 Order name: Hepatic Function; Complete Time: 09:40 pm 08:31 Order name: Lipase; Complete Time: 09:40 pm 10:25 Order name: Urine Microscopic Only; Complete Time: 11:05 pm 08:47 Order name: CT Abd/Pelvis - IV Contrast Only; Complete Time: 10:24 pm1 10:35 Order name: Urine Dipstick--Ancillary (enter results); Complete Time: 11:05 dh4 10:45 Order name: Urine Culture EDMS 08:31 Order name: IV Saline Lock; Complete Time: 08:58 pm1 08:31 Order name: Labs collected and sent; Complete Time: 08:58 pm1 10:25 Order name: Urine Dipstick-Ancillary (obtain specimen); Complete Time: 10:49 pm1 Administered Medications: 09:18 Drug: NS 0.9% 1000 ml Route: IV; Rate: 1000 ml; Site: right forearm; aa5 09:40 Follow up: IV Status: Completed infusion; IV Intake: 1000ml aa5 09:18 Drug: Zofran (Ondansetron) 4 mg Route: IVP; Site: right forearm; aa5 09:25 Follow up: Response: No adverse reaction aa5 09:23 Not Given (Patient Refused): morphine 4 mg IVP once; RASS on ADMIN: Combtv4, Very aa5 Agttd3, Agttd2, Rstlss1, AlertClm0, Drwsy-1, Lt Sdtn-2, Mod Sdtn-3, Dp Sdtn-4, UnArsble-5 10:45 Drug: Flagyl 500 mg Volume: 100 ml; Route: IVPB; Rate: 200 ml/hr; Infused Over: 30 aa5 mins; Site: right forearm; 11:15 Follow up: Response: No adverse reaction; IV Status: Completed infusion aa5 10:48 Drug: Cipro 500 mg Route: PO; aa5 11:15 Follow up: Response: No adverse reaction aa5 Disposition: 01/13/20 11:33 Discharged to Home. Impression: Diverticulitis of large intestine without perforation or abscess without bleeding, Urinary tract infection, site not specified, Headache. - Condition is Stable. - Discharge Instructions: Diverticulitis, General Headache Without Cause, Urinary Tract Infection, Adult. - Prescriptions for Flagyl 500 mg Oral Tablet - take 1 tablet by ORAL route every 6 hours for 10 days; 40 tablet. Cipro 500 mg Oral Tablet - take 1 tablet by ORAL route every 12 hours for 10 days; 20 tablet. Tylenol- Codeine #3 300-30 mg Oral Tablet - take 2 tablets by ORAL route every 6 hours As needed; 20 tablet. - Medication Reconciliation Form, Thank You Letter, Antibiotic Education, Prescription Opioid Use form. - Follow up: Emergency Department; When: As needed; Reason: Worsening of condition. Follow up: Private Physician; When: 2 - 3 days; Reason: Recheck today's complaints, Continuance of care, Re-evaluation by your physician. - Problem is new. - Symptoms have improved. Addendum: 01/14/2020 17:54 Co-signature as Attending Physician, Kenji Quentin MD I agree with the assessment and c carballo plan of care. Signatures: Dispatcher [employer] EDMS Kenji Saavedra MD MD cha Williams, Irene, RN RN iw Swathi Kirk RN RN aa5 Geovanny June, MOTOR AND GENERATOR BRUSH CUTTER MOTOR AND GENERATOR BRUSH CUTTER pm1 Corrections: (The following items were deleted from the chart) 12:00 11:33 01/13/2020 11:33 Discharged to Home. Impression: Diverticulitis of large iw intestine without perforation or abscess without bleeding; Urinary tract infection, site not specified; Headache. Condition is Stable. Forms are Medication Reconciliation Form, Thank You Letter, Antibiotic Education, Prescription Opioid Use. Follow up: Emergency Department; When: As needed; Reason: Worsening of condition. Follow up: Private Physician; When: 2 - 3 days; Reason: Recheck today's complaints, Continuance of care, Re-evaluation by your physician. Problem is new. Symptoms have improved. pm1
--- NOTE | 2020-01-13 11:34 | ER ---
Nurse's Notes [facility] Name: Jailyn Walls Age: 64 yrs Sex: Female : 1955 Arrival Date: 01/13/2020 Time: 08:17 Bed 8 Private MD: Leah Frank Diagnosis: Diverticulitis of large intestine without perforation or abscess without bleeding;Urinary tract infection, site not specified;Headache Presentation: 08:22 Chief complaint: Patient states: lower abd pain X 1 week, pain increases after eating, iw no vomiting , + nausea, +diarrhea, denies urinary s/s. Coronavirus screen: The patient has NOT traveled to [place] in the past 14 days. Proceed with normal triage procedures. Ebola Screen: Patient negative for fever greater than or equal to 101.5 degrees Fahrenheit, and additional compatible Ebola Virus Disease symptoms Patient denies exposure to infectious person. Patient denies travel to an Ebola-affected area in the 21 days before illness onset. No symptoms or risks identified at this time. Initial Sepsis Screen: Does the patient meet any 2 criteria? RR > 20 per min. Does the patient have a suspected source of infection? Yes:. Risk Assessment: Do you want to hurt yourself or someone else? Patient reports no desire to harm self or others. 08:22 Method Of Arrival: Ambulatory iw 08:22 Acuity: NILSA 3 iw Historical: - Allergies: 08:25 No Known Allergies; iw - Home Meds: 08:25 metformin 500 mg oral TG24 daily [Active]; pravastatin 20 mg oral tab once daily iw [Active]; - PMHx: 08:25 Diabetes - NIDDM; Hyperlipidemia; iw - PSHx: 08:25 Cholecystectomy; Hysterectomy; iw - Immunization history:: Adult Immunizations up to date. - Social history:: Smoking status: Patient denies any tobacco usage or history of. Screenin:30 Abuse screen: Denies threats or abuse. Nutritional screening: No deficits noted. aa5 Tuberculosis screening: No symptoms or risk factors identified. Fall Risk None identified. Assessment: 08:30 General: Appears comfortable, Behavior is calm, cooperative. Pain: Complains of pain in aa5 right lower quadrant and left lower quadrant Pain does not radiate. Pain currently is 6 out of 10 on a pain scale. Quality of pain is described as crampy, Pain began 1 week ago Is intermittent. Neuro: Level of Consciousness is awake, alert, obeys commands, Oriented to person, place, time, situation. Cardiovascular: Heart tones S1 S2 present Rhythm is regular. Respiratory: Airway is patent Respiratory effort is even, unlabored, Respiratory pattern is regular, symmetrical. GI: Abdomen is round non-distended, Bowel sounds present X 4 quads. Abd is soft and non tender X 4 quads. Reports nausea, pt states "I have diarrhea at times and it's black". Pt also reports she's been taking Pepto-Bismol. Patient currently denies vomiting. : No signs and/or symptoms were reported regarding the genitourinary system. EENT: No signs and/or symptoms were reported regarding the EENT system. Derm: Skin is pink, warm \\T\\ dry. Musculoskeletal: Range of motion: intact in all extremities. 09:25 Reassessment: Patient is alert, oriented x 3, equal unlabored respirations, skin aa5 warm/dry/pink. Patient denies pain at this time. Patient states feeling better. Patient states symptoms have improved. 09:40 Reassessment: Pt to CT . aa5 10:17 Reassessment: Patient is alert, oriented x 3, equal unlabored respirations, skin aa5 warm/dry/pink. Patient denies pain at this time. Patient states feeling better. 11:30 Reassessment: Patient is alert, oriented x 3, equal unlabored respirations, skin aa5 warm/dry/pink. Patient denies pain at this time. Patient states feeling better. Vital Signs: 08:22 BP 173 / 90; Pulse 72; Resp 16; Temp 97.4; Pulse Ox 98% on R/A; Weight 72.57 kg; Height iw 5 ft. 1 in. (154.94 cm); Pain 9/10; 09:00 BP 127 / 75; Pulse 80; Resp 16 S; Pulse Ox 99% on R/A; Pain 6/10; aa5 10:17 BP 135 / 63; Pulse 70; Resp 16 S; Pulse Ox 98% on R/A; aa5 11:30 BP 133 / 57; Pulse 71; Resp 18 S; Pulse Ox 98% on R/A; aa5 08:22 Body Mass Index 30.23 (72.57 kg, 154.94 cm) iw ED Course: 08:17 Patient arrived in ED. mr 08:17 Leah Frank MD is Private Physician. mr 08:24 Triage completed. iw 08:25 Arm band placed on. iw 08:27 Swathi Kirk, RAFAEL is Primary Nurse. aa5 08:27 Geovanny June NP is PHCP. pm1 08:27 Kenji Saavedra MD is Attending Physician. pm1 08:30 Patient has correct armband on for positive identification. Placed in gown. Bed in low aa5 position. Call light in reach. Side rails up X2. 08:30 Pulse ox on. NIBP on. aa5 08:54 Initial lab(s) drawn, by me, sent to lab. Inserted saline lock: 22 gauge in left kj1 antecubital area, using aseptic technique. Blood collected. 09:15 intact, bleeding controlled, Pressure dressing applied, 22G to L AC d/c'd, swelling aa5 noted after 5cc NS flush and pt c/o pain to site. 09:18 Inserted saline lock: 20 gauge in right forearm, using aseptic technique. aa5 09:25 Radiology exam delayed due to lab results not completed at this time. (BUN/Creatinine). mw3 09:50 CT completed. Patient tolerated procedure well. Patient moved back from CT. bq 09:54 CT Abd/Pelvis - IV Contrast Only In Process Unspecified. EDMS 10:35 Urine collected: clean catch specimen. kj1 11:30 No provider procedures requiring assistance completed. aa5 Administered Medications: 09:18 Drug: NS 0.9% 1000 ml Route: IV; Rate: 1000 ml; Site: right forearm; aa5 09:40 Follow up: IV Status: Completed infusion; IV Intake: 1000ml aa5 09:18 Drug: Zofran (Ondansetron) 4 mg Route: IVP; Site: right forearm; aa5 09:25 Follow up: Response: No adverse reaction aa5 09:23 Not Given (Patient Refused): morphine 4 mg IVP once; RASS on ADMIN: Combtv4, Very aa5 Agttd3, Agttd2, Rstlss1, AlertClm0, Drwsy-1, Lt Sdtn-2, Mod Sdtn-3, Dp Sdtn-4, UnArsble-5 10:45 Drug: Flagyl 500 mg Volume: 100 ml; Route: IVPB; Rate: 200 ml/hr; Infused Over: 30 aa5 mins; Site: right forearm; 11:15 Follow up: Response: No adverse reaction; IV Status: Completed infusion aa5 10:48 Drug: Cipro 500 mg Route: PO; aa5 11:15 Follow up: Response: No adverse reaction aa5 Intake: 09:40 IV: 1000ml; Total: 1000ml. aa5 Outcome: 11:33 Discharge ordered by MD. pm1 11:50 Discharged to home ambulatory, with significant other. aa5 11:50 Condition: stable 11:50 Discharge instructions given to patient, Instructed on discharge instructions, follow up and referral plans. medication usage, Demonstrated understanding of instructions, follow-up care, medications, Prescriptions given X 3. 12:00 Patient left the ED. iw Addendum: 01/16/2020 11:32 Addendum: Culture Results: Positive urine culture. No further action required. Bacteria i w sensitive to prescribed antibiotic. Signatures: Dispatcher [employer] EDWY Jacquelin Donahue Betty bq Williams, Irene, RN RN Swathi Kirk RN RN aa5 Geovanny June, CONSUMER LOAN UNDERWRITER CONSUMER LOAN UNDERWRITER pm1 Jeanette Coy mw3 Lucila Valentin kj1 Corrections: (The following items were deleted from the chart) 11:46 09:40 IV Status: Completed infusion 46 11:46 IV Status: Completed infusion; IV Intake: 1000ml aa
[2020-01-13 12:11] VITALS: TEMP 97.4
[2020-01-13 12:15] VITALS: BP 133/57; O2SAT 98
== END 2020-01-13 12:00 | disposition home or self-care (01) ==
LOC: ER 08:08
DX: K57.32 Diverticulitis of large intestine without perforation or abscess without bleeding (principal); N39.0 Urinary tract infection, site not specified
CPT/HCPCS: 96365; 87088; 85025; 87086; 80048; 36415; 80076; 87077; 87186; 83690; 74177; 96375; 99284; Q9967; J7030; J2405; 81003; 81015

== ENCOUNTER 2025-01-29 23:12 | Emergency (ER) | payer OTHER ==
--- OUTSIDE RECORDS SUMMARY | 2025-01-29 23:20 | XMS REPORT | Continuity of Care Document ---
Author Name Unknown Address [address] [facility] [place] [address] [facility] [place] Address [address] [facility] [place] [address] Care Team Providers Care Business Integration Manager Name Role Phone Evy Prather Primary Care Physician [phone] Leah Frank Attending Clinician Unavailable SABI CARCAMO Attending Clinician Unav ailable SABI CARCAMO Attending Clinician Unav ailable CORNELIA GUEVARA Attending Clinician Unavailable CORNELIA GUEVARA Attending Clinician Unavailable Cornelia Guevara MD Attending Clinician [phone] Arabella Locke MD K.HCamilo Attending Clinician + [phone] Sabi Carcamo MD Attending Clinician + HELIO VALENTIN Attending Clinician Unavailable HELIO VALENTIN Attending Clinician Unavailable Helio Valentin MD Attending Clinician [phone] ARABELLA LOCKE K.HCamilo Attending Clinician UnavailMARCEL Norton Attending Clinician Unavailable Marcel Kern MD Attending Clinician [phone] MARY QUINTERO Attending Clinician Unavaillaurie Locke MD, Arabella K.H. Attending Clinician + [phone] LILLAINA COYNE Attending Clinician Unavailab Lilliana Pat DO Attending Clinician [phone], [facility] Attending Clinician Unavailable CONCEPCIÓN FLORES Attending Clinician Unavailable CHRISTOPHER PATEL Attending Clinician Unavailable Christopher Patel MD Attending Clinician [phone] Mary Ball Attending Clinician Doctor Unassigned, Dodge Attending Clinician U navailable [email or web address] Attending Clinician Unavaila vanna GIL, MEHRAN Attending Clinician Unavailable EDDA IBRAHIM Attending Clinician Unavailable [facility] Urogyn Attending Clinician Unavailable Edda Ibrahim MD Attending Clinician [phone] DANN GUERRERO Attending Clinician Unavailable DANN GUERRERO Attending Clinician Unavailable RAMIRO CEE Attending Clinician Unavailab Ramiro Tripp MD Attending Clinician + [phone] Jeffery GROVER, Mehran Attending Clinician [phone] Mulu HALL, Stephie Harley Attending Clinician Unavailab Edgar Berman MD Attending Clinician [phone] EDGAR MARTINEZ Attending Clinician Unava cameron Morales RN, Rivka Izquierdo Attending Clinician [phone] Newton Tinoco DO Attending Clinician [phone] Prieto Douglass MD Attending Clinician [phone] Carlene Stevens MD Attending Clinician +[phone] CARLENE STEVENS Attending Clinician Unavailable Evelyn Coyne MD Attending Clinician [phone] Peyton Santana CRNA Attending Clinician [phone] Juan Rush MD Attending Clinician [phone] CORNELIA GUEVARA Admitting Clinician Unavailable SABI CARCAMO Admitting Clinician Unav ARABELLA Fong Admitting Clinician Unavaila CONCEPCIÓN Nobles Admitting Clinician Unavailable [email or web address] Admitting Clinician Unavaila HELIO Patterson Admitting Clinician Unavailable COLEMAN, RAMIRO Admitting Clinician UnavailMEHRAN Sandoval Admitting Clinician Unavailable EDGAR MARTINEZ Admitting Clinician Carlene Whitmore MD Admitting Clinician [phone] CARLENE STEVENS Admitting Clinician Unavailable Payers Payer Name Policy Type Policy Number Effective Date Expirati on Date Source [id number] 2014 00:00:[address] [facility] [id number] 2020 00:00:00 Problems Condition Name Condition Details Condition Category Status Onset Date Resolution Date Last Treatment Date Treating Clinician Comments Source Diverticul osis Diverticul osis Disease Active 05-07 00:00: 00 [facility] Urinary problem in female Urinary problem in female Disease Active 05-07 00:00: 00 Overview: Formattin g of this note might be different from the original. 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 On meds; seeze Prather for PCP [facility] Urinary incontinen ce Urinary incontinen ce Disease Active 07-05 00:00: 00 Overview: Formattin g of this note might be different from the original. Has Urology referral from Andrzej Prather [facility] DM (diabetes mellitus), type 2 DM (diabetes mellitus), type 2 Disease Active 07-05 00:00: 00 Overview: Formattin g of this note might be different from the original. Seeze Prather for PCP [facility] Overweight Overweight Disease Active 3 00:00: 00 Overview: Formattin g of this note might be different from the original. 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 [facility] Acute nonintract able headache, unspecifie d headache type Acute nonintract able headache, unspecifie d headache type Problem Active [facility] Diverticul itis Diverticul itis Problem Active [facility] Dysuria Dysuria Diagnosis Active [facility] Urinary incontinen ce, unspecifie d type Urinary incontinen ce, unspecifie d type Diagnosis Active [facility] Hyperlipid emia, unspecifie d hyperlipid emia type Hyperlipid emia, unspecifie d hyperlipid emia type Problem Active [facility] Uncontroll ed type 2 diabetes mellitus without complicati on, without long-term current use of insulin Uncontroll ed type 2 diabetes mellitus without complicati on, without long-term current use of insulin Problem Active [facility] Fatigue, unspecifie d type Fatigue, unspecifie d type Problem Active [facility] Allergic rhinitis, unspecifie d seasonalit y, unspecifie d trigger Allergic rhinitis, unspecifie d seasonalit y, unspecifie d trigger Problem Active [facility] Female incontinen ce Female incontinen ce Problem Active [facility] Pain of left foot Pain of left foot Problem Active [facility] Vitamin D deficiency Vitamin D deficiency Problem Active [facility] Pain in right foot Pain in right foot Problem Active [facility] Bilateral low back pain without sciatica, unspecifie d chronicity Bilateral low back pain without sciatica, unspecifie d chronicity Problem Active [facility] Controlled type 2 diabetes mellitus without complicati on, without long-term current use of insulin Controlled type 2 diabetes mellitus without complicati on, without long-term current use of insulin Problem Active [facility] Abdominal bloating Abdominal bloating Problem Active [facility] Recurrent urinary tract infection Recurrent urinary tract infection Problem Active [facility] Overweight (BMI 25.0-29.9) Overweight (BMI 25.0-29.9) Problem Active [facility] Fluctuatin g blood pressure Fluctuatin g blood pressure Problem Active [facility] S/P hysterecto my S/P hysterecto my Problem Active [facility] Dizziness Dizziness Problem Active [facility] Lump or mass in breast Lump or mass in breast Disease Resolve d 6-26 00:00: 00 2014-07-05 00:00:00 2014-07-05 16:36:43 [facility] Allergies, Adverse Reactions, Alerts Allergy Name Allergy Type Status Severity Reaction(s) Onset Date Inactive Date Treating Clinician Comments Source NITROFUR ANTOIN MONOHYD/ M-CRYST DRUG Active Rash 06-28 00:00: 00 [facility] Nitrofur antoin Monohyd/ M-Cryst Drug Allergy Active Swelling 06-28 00:00: 00 [facility] NO KNOWN ALLERGIE S Drug Class Active [facility] Nitrofur antoin Adverse Reaction Active Info Not Available [facility] Social History Social Habit Start Date Stop Date Quantity Comments Source Gender identity [facility] of Social function 2024-06-28 00:00:00 2024-06-28 00:00:00 [facility] Alcoholic beverage intake 2024-04-03 00:00:00 2024-04-03 00:00:00 Current non-drinker of alcohol (finding) [facility] Alcohol intake 2024-03-08 00:00:00 2024-03-08 00:00:00 Current non-drinker of alcohol (finding) [facility] Tobacco use and exposure 2023-06-08 00:00:00 2023-06-08 00:00:00 Smokeless tobacco non-user [facility] Exposure to SARS-CoV-2 (event) 2023-03-01 00:00:00 2023-03-11 10:09:00 Not sure [facility] Sex assigned at 1955 00:00:00 1955 00:00:00 [facility] Smoking Status Start Date Stop Date Source Never smoked tobacco [facility] Medications Ordered Medication Name Filled Medication Name Start Date Stop Date Current Medication? Ordering Clinician Indication Dosage Frequency Signature (SIG) Comments Components Source amoxicillin -clavulanat e (AUGMENTIN) 875-125 mg per tablet 2023-11 0 00:00: 00 09-22 05:59 :00 No [id number] 1{tbl} Take 1 tablet by mouth 2 (two) times daily for 7 days. [facility] amoxicillin -clavulanat e (AUGMENTIN) 875-125 mg per tablet 08-04 00:00: 00 08-12 04:59 :00 No [id number] 1{tbl} Take 1 tablet by mouth 2 (two) times daily for 7 days. [facility] estradioL (ESTRACE) 0.01 % (0.1 mg/gram) vaginal cream 07-31 00:00: 00 Yes [id number] Apply 1g vaginally at bedtime 2 times per week [facility] omeprazole 10 mg capsule 06-28 13:46: 52 Yes 1 capsule 30 minutes before morning meal Orally Once a day for 30 day(s) [facility] diclofenac 75 mg EC tablet 06-28 13:45: 11 Yes 75mg Take 1 tablet by mouth 3 (three) times daily with meals. [facility] montelukast 10 mg tablet 06-01 00:00: 00 Yes [facility] Nitrofurant oin&Nit. Macrocryst 100 mg capsule 05-05 00:00: 00 Yes 100mg Take 1 capsule by mouth 2 (two) times daily. [facility] cefTRIAXone (ROCEPHIN) 1,000 mg in NaCl 0.9% (NS) 100 mL MINI-BAG 04-04 02:00: 00 04-04 02:40 :00 No 1000mg 1,000 mg, IV Piggyback, ONCE, 1 dose, On Wed04/03/24 at 2100, Administer over 30 Minutes, 100 mL, Reason for Anti-Infec tive: Documented Infection, Documented Infection Site: Urine, Duration of Therapy: Once (ED) [facility] ondansetron 4 mg disintegrat ing tablet 04-03 00:00: 00 Yes [id number] 4mg Take 1 tablet by mouth every 8 (eight) hours as needed for Nausea and Vomiting (N/V). [facility] cefpodoxime 100 mg tablet 04-03 00:00: 00 04-11 04:59 :00 No [id number] 100mg Take 1 tablet by mouth 2 (two) times daily for 7 days. [facility] sulfamethox azole-trime thoprim 800-160 mg per tablet 03-13 00:00: 00 03-21 04:59 :00 No [id number] 1{tbl} Take 1 tablet by mouth 2 (two) times daily for 7 days. [facility] Nitrofurant oin&Nit. Macrocryst (MACROBID) 100 mg capsule 02-03 00:00: 00 04-03 00:00 :00 No [id number] 100mg Take 1 capsule by mouth at bedtime. To prevent utis [facility] cefTRIAXone (ROCEPHIN) 1,000 mg in NaCl 0.9% (NS) 100 mL MINI-BAG 12-27 03:15: 00 12-27 04:17 :00 No 1000mg 1,000 mg, IV Piggyback, ONCE, 1 dose, On 12/26/23 at 2115, Administer over 30 Minutes, 100 mL
Reas on for Anti-Infec tive: Documented Infection< br>Documen nayeli Infection Site: Urine
D uration of Therapy: 10 days [facility] iopamidol (ISOVUE 370-500 mL) injection 85 mL 12-27 03:15: 00 12-27 03:15 :00 No [id number] 85mL 85 mL, Intravenou s, ONCE, 1 dose, On 12/26/23 at 2115, Routine [facility] sodium chloride (NS) injection 5 mL 12-27 01:18: 20 Yes 5mL 5 mL, Intravenou s, PRN, Starting on Wed12/26/23 at 1918, Until Discontinu ed, Routine, IV line flushing [facility] ciprofloxac in HCl 500 mg tablet 12-26 00:00: 00 02-03 00:00 :00 No [id number] 500mg Take 1 tablet by mouth 2 (two) times daily. [facility] lactobacill us acidophilus tablet 1 mg 12-20 17:30: 00 12-20 16:34 :00 No 1mg 1 mg, Oral, ONCE NOW, 1 dose, On Wed12/20/23 at 1130, VERA [facility] loperamide (IMODIUM A-D) capsule 4 mg 12-20 17:30: 00 12-20 16:34 :00 No 4mg 4 mg, Oral, ONCE NOW, 1 dose, On Wed12/20/23 at 1130, Routine [facility] hyoscyamine sulfate (LEVSIN/SL) sublingual tablet 0.25 mg 12-20 17:30: 00 12-20 16:34 :00 No .25mg 0.25 mg, Sublingual , ONCE NOW, 1 dose, On Wed12/20/23 at 1130, Routine [facility] ketorolac (TORADOL) injection 15 mg 12-20 17:15: 00 12-20 16:47 :00 No 15mg 15 mg, Slow IV Push, ONCE NOW, 1 dose, On Wed12/20/23 at 1115, VERA [facility] NaCl 0.9% (NS) bolus infusion 1,000 mL 12-20 17:15: 00 12-20 18:00 :00 No 1000mL at 999 mL/hr, 1,000 mL, IV Piggyback, ONCE, 1 dose, On Wed12/20/23 at 1115, STAT [facility] ondansetron (ZOFRAN (PF)) injection 4 mg 12-20 16:30: 00 12-20 16:30 :00 No 4mg 4 mg, Slow IV Push, ONCE, 1 dose, On Wed12/20/23 at 1030, VERA [facility] loperamide 2 mg capsule 12-20 00:00: 00 Yes [id number] 2mg Take 1 capsule by mouth 3 (three) times daily as needed for Diarrhea. [facility] Oral Electrolyte s (PEDIALYTE ADVANCED CARE) solution 12-20 00:00: 04-03 00:00 :00 No [id number] 500mL Take 500 mL by mouth every 6 (six) hours. [facility] Saccharomyc es boulardii (FLORASTOR) 250 mg capsule 12-20 00:00: 00 04-03 00:00 :00 No [id number] 250mg Take 1 capsule by mouth 2 (two) times daily. [facility] hyoscyamine sulfate (LEVSIN/SL) 0.125 mg sublingual tablet 12-20 00:00: 04-03 00:00 :00 [id number] .[address] 1 tablet under the tongue every 6 (six) hours as needed (Abdominal pain or cramping). [facility] ondansetron 4 mg disintegrat ing tablet 12-20 00:00: 00 04-03 00:00 :00 No [id number] 4mg Take 1 tablet by mouth every 8 (eight) hours as needed for Nausea and Vomiting (N/V). [facility] sulfamethox azole-trime thoprim (BACTRIM DS) 800-160 mg per tablet 12-13 00:00: 00 12-21 05:59 :00 No [id number] 1{tbl} Take 1 tablet by mouth 2 (two) times daily for 7 days. [facility] cefUROXime 250 mg tablet 12-08 00:00: 00 12-16 05:59 :00 No [id number] 250mg Take 1 tablet by mouth 2 (two) times daily for 7 days. [facility] alendronate 70 mg tablet 11-23 00:00: 00 Yes 70mg Take 1 tablet by mouth weekly. [facility] QUEtiapine 25 mg tablet 11-22 00:00: 00 Yes 25mg Take 1 tablet by mouth at bedtime. [facility] oxybutynin 10 mg 24 hr tablet 2022-11 00:00: 00 Yes 10mg Take 1 tablet by mouth daily. [facility] cefTRIAXone (ROCEPHIN) injection 1,000 mg 2022-11 22:15: 00 09-24 21:28 :00 No [id number] 1000mg [facility] Nitrofurant oin&Nit. Macrocryst (MACROBID) 100 mg capsule 2022-11 00:00: 00 12-13 00:00 :00 No [id number] 100mg Take 1 capsule by mouth at bedtime. To prevent utis [facility] sulfamethox azole-trime thoprim 800-160 mg per tablet 2022-11 00:00: 00 09-15 04:59 :00 No [id number] 1{tbl} Take 1 tablet by mouth 2 (two) times daily for 7 days. [facility] mirabegron (MYRBETRIQ) 25 mg tablet 07-30 00:00: 00 Yes [id number] 25mg Take 1 tablet by mouth daily. [facility] Nitrofurant oin&Nit. Macrocryst (MACROBID) 100 mg capsule 07-23 00:00: 00 09-07 00:00 :00 No [id number] 100mg Take 1 capsule by mouth at bedtime. [facility] fosfomycin 3 gram packet 07-23 00:00: 00 07-24 04:59 :00 No [id number] 3g Take 3 g by mouth once now for 1 dose. [facility] metformin ER 500 mg 24 hr tablet 07-13 00:00: 00 Yes 500mg Take 1 tablet by mouth daily. [facility] iopamidol (ISOVUE 370-500 mL) injection 130 mL 07-09 23:15: 00 07-09 22:38 :00 No 130mL 130 mL, Intravenou s, ONCE, 1 dose, On Wed07/09/23 at 1815, Routine [facility] cefTRIAXone (ROCEPHIN) injection 1,000 mg 06-25 14:45: 00 06-25 14:50 :00 No [id number] [facility] sulfameth[facility] azole-trime thoprim (BACTRIM DS) 800-160 mg per tablet 06-11 00:00: 00 06-17 04:59 :00 No [id number] 1{tbl} Take 1 tablet by mouth 2 (two) times daily for 5 days. [facility] estradioL 0.01 % (0.1 mg/gram) vaginal cream 06-09 09:29: 43 07-31 00:00 :00 No 2g Insert 2 g into vagina weekly. [facility] iopamidol (ISOVUE 370-500 mL) injection 75 mL 05-07 17:15: 00 05-07 17:13 :00 No [id number] 75mL 75 mL, Intravenou s, ONCE, 1 dose, On Wed05/07/23 at 1215, Routine [facility] ATORVASTATI N 80 mg tablet 04-30 00:00: 00 Yes 80mg TAKE 1 TABLET BY MOUTH AT BEDTIME [facility] atorvastati n 80 mg tablet 03-31 00:00: 00 04-30 00:00 :00 No 80mg Take 1 tablet by mouth at bedtime. [facility] bromphenira mine-pseudo ephedrine-D M (BROMFED DM) 2-30-10 mg/5 mL syrup 2020-11 00:00: 00 04-03 00:00 :00 No [id number] 5mL Take 5 mL by mouth 4 (four) times daily as needed for Cold symptoms. [facility] benzonatate 100 mg capsule 2020-11:00: 00 04-03 00:00 :00 No [id number] 100mg Take 1 capsule by mouth 3 (three) times daily as needed for Cough. [facility] polyethylen e glycol 3350 17 gram powder 03-29 00:00: 00 04-03 00:00 :00 No [id number] 17g Take 1 Packet by mouth daily. [facility] lansoprazol e (PREVACID) 15 mg capsule 03-28 00:00: 00 Yes [id number] 15mg Take 1 capsule by mouth daily. [facility] melatonin 3 mg tablet 03-28 00:00: 00 04-03 00:00 :00 No [id number] 3mg Take 1 tablet by mouth at bedtime as needed for Insomnia. [facility] metformin ER 750 mg 24 hr tablet 03-28 00:00: 00 09-07 00:00 :00 No [id number] 750mg Take 1 tablet by mouth daily with breakfast. [facility] atorvastati n 40 mg tablet 03-28 00:00: 00 03-31 00:00 :00 No [id number] 40mg Take 1 tablet by mouth at bedtime. [facility] acetaminoph en 325 mg tablet 03-28 00:00: 00 03-29 04:59 :00 No [id number] 650mg Take 2 tablets by mouth every 6 (six) hours as needed for Pain (scale 4-6) or Temp > 38.5 C. [facility] Ciprofloxac in HCl Ciprofloxac in HCl 18 00:00: 00 08-07 00:00 :00 No Leah Frank 1 tablet [facility] Glucose testing strips Glucose testing strips 04-26 00:00: 00 Yes Leah Millender as directed (dispense testing strips of record) [facility] Lancets Lancets 04-26 00:00: 00 Yes Leah Millender as directed (dispense lancets of record) [facility] Meclizine HCl Meclizine HCl 02-17 00:00: 00 Yes Leah Millender 1 tablet as needed for dizziness [facility] Ondansetron HCl Ondansetron HCl 02-17 00:00: 00 Yes Leah Millender 1 tablet as needed for nausea/vom iting [facility] Gabapentin Gabapentin 2018-11 2-13 00:00: 00 Yes Leah Millender 1 capsule as needed for pain [facility] Vitamin D Vitamin D 2017-11 0-05 00:00: 00 Yes Leah Millender 2 capsules (otc--4,00 0 iu) [facility] Lancets Lancets 03-04 00:00: 00 Yes Leah Millender as directed [facility] MetFORMIN HCl ER MetFORMIN HCl ER 03-04 00:00: 00 Yes Leah Millender 1 tablet [facility] Blood Glucose Monitor Blood Glucose Monitor 03-04 00:00: 00 Yes Leah Millender Use as directed [facility] Pravastatin Sodium Pravastatin Sodium Yes Leah Millender 1 tablet [facility] Cipro Cipro Yes Leah Millender 1 tablet [facility] Meclizine HCl Meclizine HCl Yes Leah Millender TAKE 1 TABLET BY MOUTH EVERY 8 HOURS NEEDED [facility] Ondansetron Ondansetron Yes Leah Millender DISSOLVE 1 TABLET IN MOUTH EVERY 8 HOURS NEEDED [facility] Immunizations Ordered Immunization Name Filled Immunization Name Date Status Comments Source Influenza Virus Vaccine,quad Im,preserve Free 65+ (FLUAD) 2023-09-07 00:00:00 Completed [facility] Influenza High Dose 2021-09-15 00:00:00 Completed [facility] Influenza High Dose 2021-09-15 00:00:00 Completed [facility] Influenza High Dose 2021-09-15 00:00:00 Completed [facility] Influenza High Dose 2021-09-15 00:00:00 Completed [facility] Influenza High Dose 2021-09-15 00:00:00 Completed [facility] Influenza High Dose 2021-09-15 00:00:00 Completed [facility] Influenza High Dose 2021-09-15 00:00:00 Completed [facility] Influenza High Dose 2021-09-15 00:00:00 Completed [facility] Influenza High Dose 2021-09-15 00:00:00 Completed [facility] Influenza High Dose 2021-09-15 00:00:00 Completed [facility] Influenza High Dose 2021-09-15 00:00:00 Completed [facility] Influenza High Dose 2021-09-15 00:00:00 Completed [facility] Influenza High Dose 2021-09-15 00:00:00 Completed [facility] Influenza High Dose 2021-09-15 00:00:00 Completed [facility] Influenza, High-Dose, Trivalent, PF (FLUZONE) 2021-09-15 00:00:00 Completed [facility] Influenza High Dose 2021-09-15 00:00:00 Completed [facility] Influenza High Dose 2021-09-15 00:00:00 Completed [facility] Influenza High Dose 2021-09-15 00:00:00 Completed [facility] Influenza High Dose 2021-09-15 00:00:00 Completed [facility] Influenza High Dose 2021-09-15 00:00:00 Completed [facility] Influenza High Dose 2021-09-15 00:00:00 Completed [facility] Influenza High Dose 2021-09-15 00:00:00 Completed [facility] Influenza High Dose 2021-09-15 00:00:00 Completed [facility] Influenza High Dose 2021-09-15 00:00:00 Completed [facility] Influenza High Dose 2021-09-15 00:00:00 Completed [facility] Influenza High Dose 2021-09-15 00:00:00 Completed [facility] Influenza High Dose 2021-09-15 00:00:00 Completed [facility] Influenza High Dose 2021-09-15 00:00:00 Completed [facility] Influenza High Dose 2021-09-15 00:00:00 Completed [facility] TDAP 2014-07-05 00:00:00 Completed [facility] TDAP 2014-07-05 00:00:00 Completed [facility] TDAP 2014-07-05 00:00:00 Completed [facility] TDAP 2014-07-05 00:00:00 Completed [facility] TDAP 2014-07-05 00:00:00 Completed [facility] [facility] TDAP 2014-07-05 00:00:00 Completed [facility] TDAP 2014-07-05 00:00:00 Completed [facility] TDAP 2014-07-05 00:00:00 Completed [facility] TDAP 2014-07-05 00:00:00 Completed [facility] TDAP 2014-07-05 00:00:00 Completed [facility] TDAP 2014-07-05 00:00:00 Completed [facility] TDAP 2014-07-05 00:00:00 Completed [facility] TDAP 2014-07-05 00:00:00 Completed [facility] TDAP 2014-07-05 00:00:00 Completed [facility] TDAP 2014-07-05 00:00:00 Completed [facility] TDAP 2014-07-05 00:00:00 Completed [facility] TDAP 2014-07-05 00:00:00 Completed [facility] TDAP 2014-07-05 00:00:00 Completed [facility] TDAP 2014-07-05 00:00:00 Completed [facility] TDAP 2014-07-05 00:00:00 Completed [facility] TDAP 2014-07-05 00:00:00 Completed [facility] TDAP 2014-07-05 00:00:00 Completed [facility] TDAP 2014-07-05 00:00:00 Completed [facility] TDAP 2014-07-05 00:00:00 Completed [facility] TDAP 2014-07-05 00:00:00 Completed [facility] TDAP 2014-07-05 00:00:00 Completed [facility] TDAP 2014-07-05 00:00:00 Completed [facility] TDAP 2014-07-05 00:00:00 Completed [facility] TDAP 2014-07-05 00:00:00 Completed [facility] TD, NOS 2001-11-15 00:00:00 Completed [facility] TD, NOS 2001-11-15 00:00:00 Completed [facility] TD, NOS 2001-11-15 00:00:00 Completed [facility] TD, NOS 2001-11-15 00:00:00 Completed [facility] TD, NOS 2001-11-15 00:00:00 Completed [facility] TD, NOS 2001-11-15 00:00:00 Completed [facility] TD, NOS 2001-11-15 00:00:00 Completed [facility] TD, NOS 2001-11-15 00:00:00 Completed [facility] TD, NOS 2001-11-15 00:00:00 Completed [facility] TD, NOS 2001-11-15 00:00:00 Completed [facility] TD, NOS 2001-11-15 00:00:00 Completed [facility] TD, NOS 2001-11-15 00:00:00 Completed [facility] TD, NOS 2001-11-15 00:00:00 Completed [facility] TD, NOS 2001-11-15 00:00:00 Completed [facility] TD, NOS 2001-11-15 00:00:00 Completed [facility] Td 2001-11-15 00:00:00 Completed [facility] Td 2001-11-15 00:00:00 Completed [facility] Td 2001-11-15 00:00:00 Completed [facility] Td 2001-11-15 00:00:00 Completed [facility] Td 2001-11-15 00:00:00 Completed [facility] Td 2001-11-15 00:00:00 Completed [facility] TD, NOS 2001-11-15 00:00:00 Completed [facility] TD, NOS 2001-11-15 00:00:00 Completed [facility] TD, NOS 2001-11-15 00:00:00 Completed [facility] TD, NOS 2001-11-15 00:00:00 Completed [facility] TD, NOS 2001-11-15 00:00:00 Completed [facility] TD, NOS 2001-11-15 00:00:00 Completed [facility] TD, NOS 2001-11-15 00:00:00 Completed [facility] TD, NOS 2001-11-15 00:00:00 Completed [facility] TD, NOS Unknown Completed [facility] TDAP Unknown Completed [facility] Influenza High Dose Unknown Completed [facility] TD, NOS Unknown Completed [facility] TDAP Unknown Completed [facility] Influenza High Dose Unknown Completed [facility] Influenza High Dose Unknown Completed [facility] TD, NOS Unknown Completed [facility] TDAP Unknown Completed [facility] TD[facility] NOS Unknown Completed [facility] TDAP Unknown Completed [facility] Influenza High Dose Unknown Completed [facility] Influenza Virus Vaccine,quad Im,preserve Free 65+ (FLUAD) Unknown Completed [facility] TD, NOS Unknown Completed [facility] TDAP Unknown Completed [facility] Influenza High Dose Unknown Completed [facility] Influenza Virus Vaccine,quad Im,preserve Free 65+ (FLUAD) Unknown Completed [facility] TD[facility] NOS Unknown Completed [facility] TDAP Unknown Completed [facility] Influenza High Dose Unknown Completed [facility] Influenza Virus Vaccine,quad Im,preserve Free 65+ (FLUAD) Unknown Completed [facility] TD[facility] NOS Unknown Completed [facility] TDAP Unknown Completed [facility] Influenza High Dose Unknown Completed [facility] Influenza Virus Vaccine,quad Im,preserve Free 65+ (FLUAD[facility] Unknown Completed [facility] TD[facility] NOS Unknown Completed [facility] TDAP Unknown Completed [facility] Influenza High Dose Unknown Completed [facility] Influenza Virus Vaccine,quad Im,preserve Free 65+ (FLUAD[facility] Unknown Completed [facility] TD, NOS Unknown Completed [facility] TDAP Unknown Completed [facility] Influenza High Dose Unknown Completed [facility] Influenza Virus Vaccine,quad Im,preserve Free 65+ (FLUAD[facility] Unknown Completed [facility] TD, NOS Unknown Completed [facility] TDAP Unknown Completed [facility] Influenza High Dose Unknown Completed [facility] Influenza Virus Vaccine,quad Im,preserve Free 65+ (FLUAD) Unknown Completed [facility] TD, NOS Unknown Completed [facility] TDAP Unknown Completed [facility] Influenza High Dose Unknown Completed [facility] Influenza Virus Vaccine,quad Im,preserve Free 65+ (FLUAD) Unknown Completed [facility] TD, NOS Unknown Completed [facility] TDAP Unknown Completed [facility] Influenza High Dose Unknown Completed [facility] Influenza Virus Vaccine,quad Im,preserve Free 65+ (FLUAD) Unknown Completed [facility] TD, NOS Unknown Completed [facility] TDAP Unknown Completed [facility] Influenza High Dose Unknown Completed [facility] Influenza Virus Vaccine,quad Im,preserve Free 65+ (FLUAD) Unknown Completed [facility] TD, NOS Unknown Completed [facility] TDAP Unknown Completed [facility] Influenza High Dose Unknown Completed [facility] Influenza Virus Vaccine,quad Im,preserve Free 65+ (FLUAD) Unknown Completed [facility] TD, NOS Unknown Completed [facility] TDAP Unknown Completed [facility] Influenza High Dose Unknown Completed [facility] Influenza Virus Vaccine,quad Im,preserve Free 65+ (FLUAD[facility] Unknown Completed [facility] TD, NOS Unknown Completed [facility] TDAP Unknown Completed [facility] Influenza High Dose Unknown Completed [facility] Influenza Virus Vaccine,quad Im,preserve Free 65+ (FLUAD) Unknown Completed [facility] TD, NOS Unknown Completed [facility] TDAP Unknown Completed [facility] Influenza High Dose Unknown Completed [facility] Influenza Virus Vaccine,quad Im,preserve Free 65+ (FLUAD) Unknown Completed [facility] TD, NOS Unknown Completed [facility] TDAP Unknown Completed [facility] Influenza High Dose Unknown Completed [facility] Influenza Virus Vaccine,quad Im,preserve Free 65+ (FLUAD[facility] Unknown Completed [facility] TD, NOS Unknown Completed [facility] TDAP Unknown Completed [facility] Influenza High Dose Unknown Completed [facility] Influenza Virus Vaccine,quad Im,preserve Free 65+ (FLUAD[facility] Unknown Completed [facility] TD, NOS Unknown Completed [facility] TDAP Unknown Completed [facility] Influenza High Dose Unknown Completed [facility] Influenza Virus Vaccine,quad Im,preserve Free 65+ (FLUAD[facility] Unknown Completed [facility] TD, NOS Unknown Completed [facility] TDAP Unknown Completed [facility] Influenza High Dose Unknown Completed [facility] Influenza Virus Vaccine,quad Im,preserve Free 65+ (FLUAD[facility] Unknown Completed [facility] TD, NOS Unknown Completed [facility] TDAP Unknown Completed [facility] Influenza High Dose Unknown Completed [facility] Influenza Virus Vaccine,quad Im,preserve Free 65+ (FLUAD[facility] Unknown Completed [facility] TD, NOS Unknown Completed [facility] TDAP Unknown Completed [facility] Influenza High Dose Unknown Completed [facility] Influenza Virus Vaccine,quad Im,preserve Free 65+ (FLUAD) Unknown Completed [facility] TD, NOS Unknown Completed [facility] TDAP Unknown Completed [facility] Influenza High Dose Unknown Completed [facility] Influenza Virus Vaccine,quad Im,preserve Free 65+ (FLUAD) Unknown Completed [facility] TD, NOS Unknown Completed [facility] TDAP Unknown Completed [facility] Influenza High Dose Unknown Completed [facility] Influenza Virus Vaccine,quad Im,preserve Free 65+ (FLUAD) Unknown Completed [facility] TD, NOS Unknown Completed [facility] TDAP Unknown Completed [facility] Influenza, High-Dose, Trivalent, PF (FLUZONE) Unknown Completed [facility] Influenza Virus Vaccine,quad Im,preserve Free 65+ (FLUAD) Unknown Completed [facility] TD, NOS Unknown Completed [facility] TDAP Unknown Completed [facility] Influenza, High-Dose, Trivalent, PF (FLUZONE) Unknown Completed [facility] Influenza Virus Vaccine,quad Im,preserve Free 65+ (FLUAD) Unknown Completed [facility] Vital Signs Vital Name Observation Time Observation Value Comments S ource Systolic blood pressure 2024-09-11 16:09:00 137 mm[Hg] [facility] Diastolic blood pressure 2024-09-11 16:09:00 85 mm[Hg] [facility] Heart rate 2024-09-11 16:09:00 83 /min [facility] Body temperature 2024-09-11 16:09:00 36.67 Gracie [facility] Body height 2024-09-11 16:09:00 160 cm [facility] Body weight 2024-09-11 16:09:00 70.943 kg [facility] BMI 2024-09-11 16:09:00 27.71 kg/m2 [facility] Oxygen saturation in Arterial blood by Pulse oximetry 2024-09-11 16:09:00 98 /min [facility] Systolic blood pressure 2024-09-07 19:50:00 112 mm[Hg] [facility] Diastolic blood pressure 2024-09-07 19:50:00 65 mm[Hg] [facility] Heart rate 2024-09-07 19:50:00 80 /min [facility] Respiratory rate 2024-09-07 19:50:00 20 /min [facility] Body height 2024-09-07 19:50:00 152.4 cm [facility] Body weight 2024-09-07 19:50:00 69.854 kg [facility] BMI 2024-09-07 19:50:00 30.08 kg/m2 [facility] Oxygen saturation in Arterial blood by Pulse oximetry 2024-09-07 19:50:00 95 /min [facility] Systolic blood pressure 2024-09-06 16:25:00 142 mm[Hg] [facility] Diastolic blood pressure 2024-09-06 16:25:00 71 mm[Hg] [facility] Heart rate 2024-09-06 16:25:00 71 /min [facility] Oxygen saturation in Arterial blood by Pulse oximetry 2024-09-06 16:25:00 98 /min [facility] Body temperature 2024-09-06 16:22:00 36.61 Gracie [facility] Body weight 2024-09-06 16:22:00 70.625 kg [facility] BMI 2024-09-06 16:22:00 29.42 kg/m2 [facility] Systolic blood pressure 2024-07-31 18:17:00 142 mm[Hg] [facility] Diastolic blood pressure 2024-07-31 18:17:00 75 mm[Hg] [facility] Heart rate 2024-07-31 18:17:00 77 /min [facility] Body temperature 2024-07-31 18:17:00 36.61 Gracie [facility] Respiratory rate 2024-07-31 18:17:00 18 /min [facility] Body height 2024-07-31 18:17:00 154.9 cm [facility] Body weight 2024-07-31 18:17:00 68.947 kg [facility] BMI 2024-07-31 18:17:00 28.72 kg/m2 [facility] Systolic blood pressure 2024-06-28 18:40:00 139 mm[Hg] [facility] Diastolic blood pressure 2024-06-28 18:40:00 65 mm[Hg] [facility] Heart rate 2024-06-28 18:40:00 61 /min [facility] Body temperature 2024-06-28 18:40:00 35.94 Gracie [facility] Respiratory rate 2024-06-28 18:40:00 18 /min [facility] Body weight 2024-06-28 18:40:00 68.312 kg [facility] BMI 2024-06-28 18:40:00 29.41 kg/m2 [facility] Oxygen saturation in Arterial blood by Pulse oximetry 2024-06-28 18:40:00 97 /min [facility] Systolic blood pressure 2024-04-04 02:54:00 108 mm[Hg] [facility] Diastolic blood pressure 2024-04-04 02:54:00 66 mm[Hg] [facility] Heart rate 2024-04-04 02:54:00 82 /min [facility] Body temperature 2024-04-04 02:54:00 37.33 Gracie [facility] Respiratory rate 2024-04-04 02:54:00 17 /min [facility] Oxygen saturation in Arterial blood by Pulse oximetry 2024-04-04 02:54:00 100 /min [facility] Body height 2024-04-04 01:20:00 152.4 cm [facility] Body weight 2024-04-04 01:20:00 66.679 kg [facility] BMI 2024-04-04 01:20:00 28.71 kg/m2 [facility] Systolic blood pressure 2024-03-08 18:53:00 119 mm[Hg] [facility] Diastolic blood pressure 2024-03-08 18:53:00 67 mm[Hg] [facility] Heart rate 2024-03-08 18:53:00 82 /min [facility] Respiratory rate 2024-03-08 18:53:00 18 /min [facility] Body height 2024-03-08 18:53:00 154.9 cm [facility] Body weight 2024-03-08 18:53:00 68.04 kg [facility] BMI 2024-03-08 18:53:00 28.34 kg/m2 [facility] Oxygen saturation in Arterial blood by Pulse oximetry 2024-03-08 18:53:00 98 /min [facility] Systolic blood pressure 2024-02-04 19:25:00 121 mm[Hg] [facility] Diastolic blood pressure 2024-02-04 19:25:00 62 mm[Hg] [facility] Heart rate 2024-02-04 19:25:00 69 /min [facility] Body temperature 2024-02-04 19:25:00 36.89 Gracie [facility] Respiratory rate 2024-02-04 19:25:00 18 /min [facility] Body height 2024-02-04 19:25:00 152.4 cm [facility] Body weight 2024-02-04 19:25:00 67.223 kg [facility] BMI 2024-02-04 19:25:00 28.94 kg/m2 [facility] Heart rate 2023-12-27 04:11:00 69 /min [facility] Oxygen saturation in Arterial blood by Pulse oximetry 2023-12-27 04:11:00 92 /min [facility] Systolic blood pressure 2023-12-27 04:00:00 113 mm[Hg] [facility] Diastolic blood pressure 2023-12-27 04:00:00 63 mm[Hg] [facility] Body temperature 2023-12-27 03:20:19 36.89 Gracie [facility] Respiratory rate 2023-12-27 03:20:19 18 /min [facility] Body height 2023-12-27 01:24:00 152.4 cm [facility] Body weight 2023-12-27 01:24:00 67.586 kg [facility] BMI 2023-12-27 01:24:00 29.10 kg/m2 [facility] Systolic blood pressure 2023-12-20 18:00:00 120 mm[Hg] [facility] Diastolic blood pressure 2023-12-20 18:00:00 63 mm[Hg] [facility] Heart rate 2023-12-20 18:00:00 60 /min [facility] Respiratory rate 2023-12-20 18:00:00 16 /min [facility] Oxygen saturation in Arterial blood by Pulse oximetry 2023-12-20 18:00:00 99 /min [facility] Body temperature 2023-12-20 16:08:00 36.83 Gracie [facility] Body height 2023-12-20 16:08:00 152.4 cm [facility] Body weight 2023-12-20 16:08:00 72.576 kg [facility] BMI 2023-12-20 16:08:00 31.25 kg/m2 [facility] Systolic blood pressure 2023-12-08 14:25:00 124 mm[Hg] [facility] Diastolic blood pressure 2023-12-08 14:25:00 69 mm[Hg] [facility] Heart rate 2023-12-08 14:25:00 88 /min [facility] Body temperature 2023-12-08 14:25:00 37.06 Gracie [facility] Body height 2023-12-08 14:25:00 152.4 cm [facility] Systolic blood pressure 2023-09-24 20:50:00 112 mm[Hg] [facility] Diastolic blood pressure 2023-09-24 20:50:00 63 mm[Hg] [facility] Heart rate 2023-09-24 20:50:00 76 /min [facility] Body temperature 2023-09-24 20:50:00 37.5 Gracie [facility] Respiratory rate 2023-09-24 20:50:00 18 /min [facility] Body height 2023-09-24 20:50:00 152.4 cm [facility] Body weight 2023-09-24 20:50:00 70.398 kg [facility] BMI 2023-09-24 20:50:00 30.31 kg/m2 [facility] Systolic blood pressure 2023-09-07 19:00:00 122 mm[Hg] [facility] Diastolic blood pressure 2023-09-07 19:00:00 68 mm[Hg] [facility] Heart rate 2023-09-07 19:00:00 69 /min [facility] Body height 2023-09-07 19:00:00 152.4 cm [facility] Body weight 2023-09-07 19:00:00 69.718 kg [facility] BMI 2023-09-07 19:00:00 30.02 kg/m2 [facility] Oxygen saturation in Arterial blood by Pulse oximetry 2023-09-07 19:00:00 95 /min [facility] Systolic blood pressure 2023-09-03 16:25:00 123 mm[Hg] [facility] Diastolic blood pressure 2023-09-03 16:25:00 64 mm[Hg] [facility] Heart rate 2023-09-03 16:25:00 70 /min [facility] Body temperature 2023-09-03 16:25:00 36.56 Gracie [facility] Respiratory rate 2023-09-03 16:25:00 18 /min [facility] Body weight 2023-09-03 16:25:00 69.854 kg [facility] BMI 2023-09-03 16:25:00 29.10 kg/m2 [facility] Oxygen saturation in Arterial blood by Pulse oximetry 2023-09-03 16:25:00 97 /min [facility] Systolic blood pressure 2023-07-30 15:40:00 117 mm[Hg] [facility] Diastolic blood pressure 2023-07-30 15:40:00 68 mm[Hg] [facility] Heart rate 2023-07-30 15:40:00 61 /min Unive [facility] Body temperature 2023-07-30 15:40:00 36.56 Gracie [facility] Respiratory rate 2023-07-30 15:40:00 18 /min [facility] Body height 2023-07-30 15:40:00 154.9 cm Univ [facility] Body weight 2023-07-30 15:40:00 68.947 kg Univ [facility] BMI 2023-07-30 15:40:00 28.72 kg/m2 Univ [facility] Systolic blood pressure 2023-07-27 18:29:00 125 mm[Hg] [facility] Diastolic blood pressure 2023-07-27 18:29:00 74 mm[Hg] [facility] Heart rate 2023-07-27 18:29:00 81 /min [facility] Body temperature 2023-07-27 18:29:00 36.56 Gracie [facility] Respiratory rate 2023-07-27 18:29:00 18 /min [facility] Body height 2023-07-27 18:29:00 154.9 cm [facility] Body weight 2023-07-27 18:29:00 69.31 kg Univ [facility] BMI 2023-07-27 18:29:00 28.87 kg/m2 Univ [facility] Oxygen saturation in Arterial blood by Pulse oximetry 2023-07-27 18:29:00 94 /min [facility] Systolic blood pressure 2023-07-20 14:43:00 130 mm[Hg] [facility] Diastolic blood pressure 2023-07-20 14:43:00 78 mm[Hg] [facility] Heart rate 2023-07-20 14:43:00 59 /min Unive [facility] Body temperature 2023-07-20 14:43:00 36.28 Gracie [facility] Respiratory rate 2023-07-20 14:43:00 17 /min [facility] Body height 2023-07-20 14:43:00 154.9 cm [facility] 2023-07-20 14:43:00 68.493 kg Univ [facility] BMI 2023-07-20 14:43:00 28.53 kg/m2 Univ [facility] Oxygen saturation in Arterial blood by Pulse oximetry 2023-07-20 14:43:00 96 /min [facility] Respiratory rate 2023-07-02 14:56:00 18 /min [facility] Body weight 2023-06-25 14:38:00 68.493 kg Univ [facility] BMI 2023-06-25 14:38:00 28.53 kg/m2 Univ [facility] Systolic blood pressure 2023-06-09 14:09:00 126 mm[Hg] [facility] Diastolic blood pressure 2023-06-09 14:09:00 65 mm[Hg] [facility] Heart rate 2023-06-09 14:09:00 89 /min Unive [facility] Body temperature 2023-06-09 14:09:00 36.72 Gracie [facility] Respiratory rate 2023-06-09 14:09:00 18 /min [facility] Body height 2023-06-09 14:09:00 154.9 cm Univ [facility] Body weight 2023-06-09 14:09:00 68.493 kg Univ [facility] BMI 2023-06-09 14:09:00 28.53 kg/m2 [facility] Oxygen saturation in Arterial blood by Pulse oximetry 2023-06-09 14:09:00 95 /min [facility] Systolic blood pressure 2023-06-08 13:05:00 147 mm[Hg] [facility] Diastolic blood pressure 2023-06-08 13:05:00 62 mm[Hg] [facility] Heart rate 2023-06-08 13:05:00 68 /min Unive [facility] Body temperature 2023-06-08 13:05:00 36.56 Gracie [facility] Respiratory rate 2023-06-08 13:05:00 18 /min [facility] Body height 2023-06-08 13:05:00 152.4 cm [facility] Body weight 2023-06-08 13:05:00 70.308 kg [facility] BMI 2023-06-08 13:05:00 30.27 kg/m2 [facility] Oxygen saturation in Arterial blood by Pulse oximetry 2023-06-08 13:05:00 94 /min [facility] Systolic blood pressure 2023-05-07 14:40:00 171 mm[Hg] [facility] Diastolic blood pressure 2023-05-07 14:40:00 98 mm[Hg] [facility] Heart rate 2023-05-07 14:40:00 61 /min [facility] Body temperature 2023-05-07 14:40:00 36.72 Gracie [facility] Respiratory rate 2023-05-07 14:40:00 18 /min [facility] Body weight 2023-05-07 14:40:00 70.308 kg [facility] BMI 2023-05-07 14:40:00 30.27 kg/m2 [facility] Oxygen saturation in Arterial blood by Pulse oximetry 2023-05-07 14:40:00 98 /min [facility] Systolic blood pressure 2023-03-08 14:57:00 128 mm[Hg] [facility] Diastolic blood pressure 2023-03-08 14:57:00 73 mm[Hg] [facility] Heart rate 2023-03-08 14:57:00 64 /min [facility] Body temperature 2023-03-08 14:57:00 36.94 Gracie [facility] Respiratory rate 2023-03-08 14:57:00 18 /min [facility] Body weight 2023-03-08 14:57:00 71.079 kg [facility] BMI 2023-03-08 14:57:00 30.60 kg/m2 [facility] Oxygen saturation in Arterial blood by Pulse oximetry 2023-03-08 14:57:00 97 /min [facility] Systolic blood pressure 2022-03-05 20:08:00 130 mm[Hg] [facility] Diastolic blood pressure 2022-03-05 20:08:00 70 mm[Hg] [facility] Heart rate 2022-03-05 20:08:00 68 /min [facility] Respiratory rate 2022-03-05 19:58:00 22 /min [facility] Body height 2022-03-05 19:58:00 152.4 cm [facility] Body weight 2022-03-05 19:58:00 68.584 kg [facility] BMI 2022-03-05 19:58:00 29.53 kg/m2 [facility] Oxygen saturation in Arterial blood by Pulse oximetry 2022-03-05 19:58:00 97 /min [facility] Procedures Procedure Date / Time Performed Performing Clinician Source CARDIAC DEVICE CHECK - REMOTE - PACEMAKER 2024-11-28 01:48:17 Cornelia Guevara [facility] CARDIAC DEVICE CHECK - REMOTE - PACEMAKER 2024-09-12 23:34:51 Cornelia Guevara [facility] URINE CULTURE 2024-09-11 21:52:00 Helio Valentin [facility] URINE CULTURE 2024-07-31 19:04:00 Helio Valentin [facility] ALBERTO,POST-VOID RES,US,NON-IMAGING 2024-07-31 18:33:00 Helio Valentin [facility] POCT URINALYSIS AUTO 2024-07-31 00:00:00 Roxy Valentin [facility] ALBERTO,POST-VOID RES,US,NON-IMAGING 2024-06-28 18:56:00 Marcel Kern [facility] POCT URINALYSIS AUTO 2024-06-28 18:56:00 Katty Kern [facility] CARDIAC DEVICE CHECK - REMOTE - PACEMAKER 2024-05-30 21:05:04 Cornelia Guevara [facility] EKG-12 LEAD 2024-04-04 02:48:45 [facility] 2024-04-04 01:56:00 Lilliana Coyne [facility] TROPONIN I 2024-04-04 01:56:00 Lilliana Coyne [facility] COMP. METABOLIC PANEL (95288) 2024-04-04 01:56:00 Lilliana Coyne [facility] CBC WITH DIFF 2024-04-04 01:56:00 [facility]INALYSIS 2024-04-04 01:30:00 Lilliana Coyne [facility] TRANSTHORACIC ECHO (TTE) COMPLETE 2024-03-08 18:31:13 Arabella Locke [facility] ALBERTO,POST-VOID RES,US,NON-IMAGING 2024-02-04 00:00:00 Helio Valentin [facility] CT ABDOMEN PELVIS W CONTRAST 2023-12-27 02:17:59 Concepción Flores [facility] URINALYSIS 2023-12-27 01:59:00 Concepción Flores [facility] LIPASE 2023-12-27 01:44[facility]00 [facility]. METABOLIC PANEL ([id number]) 2023-12-27 01:44:00 Concepción Flores [facility] CBC WITH DIFF 2023-12-27 01:44:00 Concepción Flores [facility] CONSENT/REFUSAL FOR DIAGNOSIS AND TREATMENT 2023-12-27 01:14:48 Doctor Unassigned, [place] [facility] COMP. METABOLIC PANEL ([id number]) 2023-12-20 16:44:00 Christopher Patel [facility] CBC WITH DIFF 2023-12-20 16:44:00 Christopher Patel [facility] COVID-19 (ID NOW RAPID TESTING) 2023-12-20 16:44:00 Christopher Patel [facility] CONSENT/REFUSAL FOR DIAGNOSIS AND TREATMENT 2023-12-20 15:56:30 Doctor Unassigned, [employer] [facility] ALBERTO,POST-VOID RES,US,NON-IMAGING 2023-12-08 14:32:00 Mary Quintero [facility] POCT URINALYSIS AUTO 2023-12-08 00:00:00 [facility] MICROSCOPIC 2023-09-24 21:16:00 Shakeel Valentin [facility] URINE CULTURE 2023-09-24 21:16:00 Helio Valentin [facility] ASSIGNMENT OF BENEFITS 2023-09-24 20:28:03 Docto r Unassigned, [employer] [facility] POCT URINALYSIS W/O SPECIFIC GRAVITY 2023-09-24 00:00:00 Helio Valentin [facility] FLU VACC(),65+YR,0.5 ML,IM,ADJUVANTED,QUAD(FLU AD) 2023-09-07 18:49:03 Arabella Locke [facility] POCT URINALYSIS AUTO 2023-09-03 16:50:00 Samra Quintero [facility] POCT URINALYSIS W/O SPECIFIC GRAVITY 2023-07-30 00:00:00 Helio Valentin [facility] URODYNAMIC STUDY DATA 2023-07-27 05:01:00 Doctor Unassigned, [employer] [facility] URINALYSIS MICROSCOPIC 2023-07-20 14:55:00 Shakeel Valentin [facility] URINE CULTURE 2023-07-20 14:55:00 Helio Valentin [facility] POCT URINALYSIS 2023-07-20 14:54:00 Helio [facility] ABDOMEN PELVIS W WO CONTRAST 2023-07-09 22:38:29 Helio Valentin [facility] POCT URINALYSIS AUTO 2023-07-02 18:23:00 Roxy Valentin [facility] DISCLOSURE AND CONSENT, MEDICAL AND SURGICAL PROCEDURES 2023-07-02 05:01:00 Doctor Unassigned, [employer] [facility] POCT URINALYSIS AUTO 2023-06-25 14:47:00 Roxy Valentin [facility] URINE CULTURE 2023-06-25 14:45:00 Helio Valentin [facility] REFERRAL- REQUEST/RESPONSE 2023-06-17 05:01:00 Doctor Unassigned, [employer] [facility] POCT URINALYSIS AUTO 2023-06-09 14:24:00 Roxy Valentin [facility] AUTHORIZATION FOR RELEASE OF PHI 2023-06-09 05:01:00 Doctor Unassigned, [employer] [facility] URINALYSIS MICROSCOPIC 2023-06-08 14:51:00 Mary Quintero [facility] POCT URINALYSIS AUTO 2023-06-08 13:57:00 Samra Quintero [facility] XR CHEST 2 VW 2023-05-07 17:34:02 Ramiro Cee [facility] CT ABDOMEN PELVIS W CONTRAST 2023-05-07 17:20:00 Ramiro Cee [facility] COMP. METABOLIC PANEL ([id number]) 2023-05-07 16:14:00 Ramiro Cee [facility] CBC WITH DIFF 2023-05-07 16:14:00 Ramiro Cee [facility] ASSIGNMENT OF BENEFITS 2023-05-07 15:56:41 Docto r Unassigned, [employer] [facility] CONSENT/REFUSAL FOR DIAGNOSIS AND TREATMENT 2023-05-07 15:56:20 Doctor Unassigned, [employer] [facility] URINALYSIS 2023-05-07 15:40:00 Ramiro Cee [facility] NOTICE OF PRIVACY PRACTICES 2023-05-07 14:22:43 Doctor Unassigned, [employer] [facility] CONSENT/REFUSAL FOR DIAGNOSIS AND TREATMENT 2023-05-07 14:21:39 Doctor Unassigned, [place] [facility] PATIENT FINANCIAL POLICY 2023-03-08 14:30:42 Doctor Unassigned, [place] [facility] EXTERNAL PROVIDER - ADC CARDIOLOGY 2022-10-05 06:01:00 Doctor Unassigned, [place] [facility] CONSENT/REFUSAL FOR DIAGNOSIS AND TREATMENT 2022-09-10 14:41:00 Doctor Unassigned, [employer] [facility] HB ECG ROUTINE & RHYTHM STRIP 2022-03-05 20:03:59 Arabella Locke [facility] INSURANCE CORRESPONDENCE 2022-03-03 05:01:00 Doc tor Unassigned, [employer] [facility] Encounters Start Date/Time End Date/Time Encounter Type Admission Type Attending [facility] Facility Care Department Encounter ID Source 2022-12-02 16:06:00 Outpatient [facility] [id number] [facility] 2021-12-10 12:26:08 Outpatient Leah Frank [facility] [id number] [facility] 2021-12-10 11:46:29 Outpatient Leah Frank [facility] [id number] [facility] 2021-12-10 11:13:49 Outpatient Leah Frank [facility] [id number] [facility] 2021-12-10 11:13:11 Outpatient Mckinley Franken STLMLC [facility] [id number] [facility] 2021-12-10 11:10:12 Outpatient Mckinley Franken [facility] [id number] [facility] 2021-12-10 11:08:29 Outpatient Mckinley Franken [facility] [id number] [facility] 2021-09-14 18:06:22 Emergency [facility] [id number] [facility] 2025-01-26 16:07:49 2025-01-26 16:07:49 Outpatient [facility] [id number] [facility] 2024-05-27 00:00:00 2024-12-30 07:18:44 Orders Only Cornelia Guevara [facility] 1.2.840.114 350.1.13.10 4.2.7.2.686 [id number] [facility] 2024-08-26 00:00:00 2024-12-30 06:50:25 Orders Only Cornelia Guevara [facility] 1.2.840.114 350.1.13.10 4.2.7.2.686 [id number] [facility] 2024-08-26 00:00:00 2024-12-30 06:50:22 Orders Only Cornelia Guevara [facility] 1.2.840.114 350.1.13.10 4.2.7.2.686 [id number] [facility] 2024-11-25 00:00:00 2024-12-30 06:20:34 Orders Only Cornelia Guevara [facility] ([facility] 1.2.840.114 350.1.13.10 4.2.7.2.686 [id number] [facility] 2024-11-25 00:00:00 2024-12-30 06:20:32 Orders Only Cornelia Guevara [facility] 1.2.840.114 350.1.13.10 4.2.7.2.686 [id number] [facility] 2024-12-25 00:00:00 2024-12-26 09:08:30 Telephone Arabella Locke [facility] 1.2.840.114 350.1.13.10 4.2.7.2.686 [id number] [facility] 2024-11-25 01:50:00 2024-11-25 23:59:00 Outpatient R CORNELIA GUEVARA MUHIE [facility] [id number] [facility] 2024-11-25 01:50:00 2024-11-25 23:59:00 Hospital Encounter Cornelia Guevara [facility] 1.2.840.114 350.1.13.10 4.2.7.2.686 [id number] [facility] 2024-11-20 08:01:14 2024-11-20 08:01:14 Outpatient [facility] [id number] [facility] 2024-09-28 15:00:00 2024-09-28 23:59:00 Outpatient R LAUREN CARCAMO CHOCKALINGA M [facility] [id number] [facility] 2024-09-28 14:30:50 2024-09-28 23:59:00 Hospital Encounter Lauren Carcamo [facility] 1.2.840.114 350.1.13.10 4.2.7.2.686 [id number] [facility] 2024-09-11 11:30:00 2024-09-11 12:04:19 Outpatient R HELIO VALENTIN ELISHA [facility] [id number] [facility] 2024-09-11 11:30:00 2024-09-11 12:04:19 Office Visit Helio Valentin [facility] 1.2.840.114 350.1.13.10 4.2.7.2.686 [id number] [facility] 2024-09-07 15:00:00 2024-09-07 15:12:20 Outpatient ARABELLA POWELL [facility] [id number] [facility] 2024-09-07 15:00:00 2024-09-07 15:12:20 Office Visit Arabella Locke [facility] 1..840.114 350.1.13.10 4.2.7.2.686 [id number] [facility] 2024-09-06 11:00:00 2024-09-06 12:45:36 Outpatient R HELIO VALENTIN [facility] [id number] [facility] 2024-09-06 11:00:00 2024-09-06 12:45:36 Office Visit Helio Valentin [facility] 1..840.114 350.1.13.10 4.2.7.2.686 [id number] [facility] 2024-09-04 16:37:59 2024-09-04 16:37:59 Outpatient [facility] [id number] [facility] 2024-08-30 11:00:00 2024-08-30 11:00:00 Outpatient [facility] [id number] [facility] 2024-08-26 01:45:00 2024-08-26 23:59:00 Outpatient R CORNELIA GUEVARA MUHIE [facility] [id number] [facility] 2024-08-26 01:45:00 2024-08-26 23:59:00 Hospital Encounter Cornelia Guevara [facility] 1..840.114 350.1.13.10 4.2.7.2.686 [id number] [facility] 2024-08-26 00:00:00 2024-08-26 00:00:00 Outpatient R CORNELIA GUEVARA MUHIE [facility] [id number] [facility] 2024-08-18 15:47:17 2024-08-18 15:47:17 Outpatient [facility] [place] [id number] [facility] 2024-08-07 00:00:00 2024-08-08 13:30:29 Telephone Helio Valentin [facility] 1.2.840.114 350.1.13.10 4.2.7.2.686 [id number] [facility] 2024-07-31 14:00:00 2024-07-31 14:08:17 [facility] [id number] [facility] 2024-07-31 14:00:00 2024-07-31 14:08:17 Office Visit Helio Valentin [facility] 1.2.840.114 350.1.13.10 4.2.7.2.686 [id number] [facility] 2024-07-05 08:10:11 2024-07-05 08:10:11 Outpatient [facility] [place] [id number] [facility] 2024-06-28 13:45:00 2024-06-28 14:05:44 Outpatient R MARCEL KERN [facility] [id number] [facility] 2024-06-28 13:45:00 2024-06-28 14:00:00 Office Visit Kamila [facility] 1.2.840.114 350.1.13.10 4.2.7.2.686 [id number] [facility] 2024-06-07 09:01:32 2024-06-07 09:01:32 Outpatient [facility] [id number] [facility] 2024-06-01 09:51:18 2024-06-01 09:51:18 Outpatient [facility] [id number] [facility] 2024-05-30 16:05:04 2024-05-30 23:59:00 Outpatient R CORNELIA GUEVARA MUAZNick [facility] [id number] [facility] 2024-05-30 16:05:04 2024-05-30 23:59:00 Hospital Encounter Cornelia Guevara [facility] 1.2.840.114 350.1.13.10 4.2.7.2.686 [id number] [facility] 2024-05-12 16:18:19 2024-05-12 16:18:19 Outpatient [facility] [id number] [facility] 2024-05-05 16:14:29 2024-05-05 16:14:29 Outpatient [facility] [id number] [facility] 2024-04-06 11:36:03 2024-04-06 23:59:00 Outpatient R ARABELLA LOCKE [facility] [id number] [facility] 2024-04-06 11:36:03 2024-04-06 23:59:00 Hospital Encounter Arabella Locke [facility] 1.2.840.114 350.1.13.10 4.2.7.2.686 [id number] [facility] 2024-04-03 20:23:00 2024-04-03 22:12:00 Emergency X [facility] [id number] [facility] 2024-04-03 20:23:00 2024-04-03 22:12:00 Emergency Lilliana Coyne [facility] 1.2.840.114 350.1.13.10 4.2.7.2.686 [id number] [facility] 2024-03-31 17:16:00 2024-03-31 17:16:00 Outpatient [facility] [id number] [facility] 2024-03-13 00:00:00 2024-03-13 00:00:00 Telephone Arabella Locke [facility] 1.2.840.114 350.1.13.10 4.2.7.2.686 [id number] [facility] 2024-03-13 00:00:00 2024-03-13 00:00:00 Helio Tracy [facility] 1.2.840.114 350.1.13.10 4.2.7.2.686 [id number] [facility] 2024-03-10 08:00:00 2024-03-10 08:56:54 Outpatient R ARABELLA LOCKE [facility] [id number] [facility] 2024-03-10 08:00:00 2024-03-10 08:15:00 Manager Hi Visit 2, Adc Lab Arabella Locke [facility] 1.2.840.114 350.1.13.10 4.2.7.2.686 [id number] [facility] 2024-03-09 00:00:00 2024-03-09 00:00:00 Telephone Arabella Locke [facility] 1.2.840.114 350.1.13.10 4.2.7.2.686 [id number] [facility] 2024-03-08 12:25:59 2024-03-08 23:59:00 Hospital Encounter Arabella Locke [facility] 1.2.840.114 350.1.13.10 4.2.7.2.686 [id number] [facility] 2024-03-08 14:30:00 2024-03-08 14:45:00 Manager Hi Visit 2, Adc Lab Arabella Locke [facility] 1.2.840.114 350.1.13.10 4.2.7.2.686 [id number] [facility] 2024-03-08 14:00:00 2024-03-08 14:20:04 Outpatient R ARABELLA LOCKE [facility] [id number] [facility] 2024-03-08 14:00:00 2024-03-08 14:20:04 Office Visit Arabella Locke [facility] 1.2.840.114 350.1.13.10 4.2.7.2.686 [id number] [facility] 2024-02-23 11:37:17 2024-02-23 11:37:17 Outpatient [facility] [id number] [place] 2024-02-04 14:00:00 2024-02-04 16:45:32 [facility] [id number] [facility] 2024-02-04 14:00:00 2024-02-04 16:45:32 Office Visit Helio Valentin [facility] 1.2.840.114 350.1.13.10 4.2.7.2.686 [id number] [facility] 2024-02-04 08:20:38 2024-02-04 08:20:38 Outpatient [place] [id number] [place] 2024-01-07 16:00:00 2024-01-07 16:00:00 Telemedici ne Visit Helio Valentin [facility] 1.2.840.114 350.1.13.10 4.2.7.2.686 [id number] [facility] 2024-01-07 16:00:00 2024-01-07 15:41:14 [facility] R [facility] [id number] [facility] 2023-12-27 14:30:00 2023-12-27 14:30:00 Outpatient R HOMERO, HELIO VALENTIN [facility] [id number] [facility] 2023-12-26 19:27:00 2023-12-26 22:25:00 Emergency X [facility] E[facility] [id number] [facility] 2023-12-26 19:27:00 2023-12-26 22:25:00 Emergency [place] [facility] 1..840.114 350.1.13.10 4.2.7.2.686 [id number] [facility] 2023-12-20 10:09:00 2023-12-20 12:18:00 Emergency X [facility] ERT [id number] [facility] 2023-12-20 10:09:00 2023-12-20 12:18:00 Emergency Christopher Patel [facility] 1..840.114 350.1.13.10 4.2.7.2.686 [id number] [facility] 2023-12-13 00:00:00 2023-12-13 00:00:00 Case Management Ingrid [facility] BUILDING 1..840.114 350.1.13.10 4.2.7.2.686 [id number] [facility] 2023-12-13 00:00:00 2023-12-13 00:00:00 Telephone Ingrid [facility] BUILDING 1..840.114 350.1.13.10 4.2.7.2.686 [id number] [facility] 2023-12-08 08:45:00 2023-12-08 08:56:14 Office Visit [facility] 1.2.840.114 350.1.13.10 4.2.7.2.686 [id number] [facility] 2023-12-08 08:45:00 2023-12-08 08:56:14 Outpatient R MARY QUINTERO [facility] [id number] [facility] 2023-12-07 14:50:49 2023-12-07 14:50:49 Outpatient [facility] [id number] Long Matt Pramod 2023-11-26 15:30:00 2023-11-26 15:30:00 Outpatient R HELIO VALENTIN ELISHA [facility] [id number] [facility] 2023-11-23 10:55:20 2023-11-23 10:55:20 Outpatient [facility] [id number] Long Matt Pramod 2023-10-22 09:59:40 2023-10-22 09:59:40 Outpatient [place] [id number] Long Matt [place] 2023-09-24 15:00:00 2023-09-24 15:29:54 Outpatient R HELIO VALENTIN ELISHA [facility] [id number] [facility] 2023-09-24 15:00:00 2023-09-24 15:29:54 Office Visit Helio Valentin [facility] DEL[facility] ZACARIAS [facility] 1..840.114 350.1.13.10 4.2.7.2.686 [id number] [facility] 2023-09-24 00:00:00 2023-09-24 00:00:00 Orders Only Doctor Unassigned, Dodge [facility] 1..840.114 350.1.13.10 4.2.7.2.686 [id number] [facility] 2023-09-14 00:00:00 2023-09-14 00:00:00 Outpatient GC_GCBZW_Ka diyala_S PRIV [facility] [id number] [facility] 2023-09-09 08:40:00 2023-09-09 08:40:00 Outpatient R MEHRAN GIL [facility] [id number] [facility] 2023-09-07 14:00:00 2023-09-07 14:25:26 Office Visit Arabella Locke [facility] BUILDING 1.2.840.114 350.1.13.10 4.2.7.2.686 [id number] [facility] 2023-09-07 14:00:00 2023-09-07 14:25:26 Outpatient R ARABELLA LOCKE [facility] [id number] [facility] 2023-09-07 07:38:08 2023-09-07 07:38:08 Outpatient SFA SFA [id number] Long Benavidez 2023-09-07 00:00:00 2023-09-07 00:00:00 Refill Helio Valentin [facility] 1.2.840.114 350.1.13.10 4.2.7.2.686 [id number] [facility] 2023-09-06 14:00:00 2023-09-06 14:00:00 Outpatient R [facility] [id number] [facility] 2023-09-03 11:30:00 2023-09-03 11:47:51 Outpatient R MARY QUINTERO [facility] [id number] [facility] 2023-09-03 11:30:00 2023-09-03 11:47:51 Office Visit Mary Quintero [facility] BU[facility] 1.2.840.114 350.1.13.10 4.2.7.2.686 [id number] [facility] 2023-07-30 16:00:00 2023-07-30 16:00:00 Office Visit Helio Valentin [facility] 1..840.114 350.1.13.10 4.2.7.2.686 [id number] [facility] 2023-07-30 16:00:00 2023-07-30 11:29:52 Outpatient R HOMERO HELIO HOMEROHELIO [facility] [id number] [facility] 2023-07-27 13:30:00 2023-07-27 14:13:51 Outpatient R PATRICE [facility] [id number] [facility] 2023-07-27 13:30:00 2023-07-27 14:13:51 Office Visit [employer] , Clc Bls Urotawanda Patrice [facility] MEDICAL OFFICE BUILDING 1..840.114 350.1.13.10 4.2.7.2.686 [id number] [facility] 2023-07-27 00:00:00 2023-07-27 00:00:00 Orders Only Doctor Unassigned, Dodge [facility] 1..840.114 350.1.13.10 4.2.7.2.686 [id number] [facility] 2023-07-26 07:43:06 2023-07-26 07:43:06 Outpatient [facility] [id number] Long Matt Pramod 2023-07-20 10:00:00 2023-07-20 10:12:26 Outpatient R DANN GUERRERO DANN [facility] [id number] [facility] 2023-07-20 10:00:00 2023-07-20 10:12:26 Office Visit [employer] , Cl[facility] Bl[facility] 1..840.114 350.1.13.10 4.2.7.2.686 [id number] [facility] 2023-07-13 07:44:27 2023-07-13 07:44:27 Outpatient [facility] [id number] Long Benavidez 2023-07-12 16:24:34 2023-07-12 16:24:34 Outpatient [facility] [id number] Long Benavidez 2023-07-09 16:11:49 2023-07-09 23:59:00 Outpatient R [facility] [id number] [facility] 2023-07-09 16:11:49 2023-07-09 23:59:00 Hospital Encounter Helio Valentin [facility] 1.2840.114 350.1.13.10 4.2.7.2.686 [id number] [facility] 2023-07-02 11:00:00 2023-07-02 12:21:49 Outpatient [facility] [id number] [facility] 2023-07-02 11:00:00 2023-07-02 12:21:49 Office Visit Roxy Valentinha [facility] 1..840.114 350.1.13.10 4.2.7.2.686 [id number] [facility] 2023-07-02 00:00:00 2023-07-02 00:00:00 Orders Only Doctor Unassigned, Dodge [facility] 1.840.114 350.1.13.10 4.2.7.2.686 [id number] [facility] 2023-06-25 09:00:00 2023-06-25 09:30:00 Office Visit HomeroRoxyha [facility] 1.2.840.114 350.1.13.10 4.2.7.2.686 [id number] [facility] 2023-06-25 09:00:00 2023-06-25 09:00:00 Outpatient R [facility] [id number] [facility] 2023-06-17 00:00:00 2023-06-17 00:00:00 Orders Only Doctor Unassigned, Dodge [facility] 1.2.840.114 350.1.13.10 4.2.7.2.686 [id number] [facility] 2023-06-11 00:00:00 2023-06-11 00:00:00 Telephone Quintero [facility] 1.2.840.114 350.1.13.10 4.2.7.2.686 [id number] [facility] 2023-06-11 00:00:00 2023-06-11 00:00:00 Telephone Quintero [facility] 1.2.840.114 350.1.13.10 4.2.7.2.686 [id number] [facility] 2023-06-11 00:00:00 2023-06-11 00:00:00 Telephone Quintero [facility] 1.2.840.114 350.1.13.10 4.2.7.2.686 [id number] [facility] 2023-06-09 09:30:00 2023-06-09 10:28:26 Outpatient R HELIO VALENTIN ELISHA [facility] [id number] [facility] 2023-06-09 09:30:00 2023-06-09 10:28:26 Office Visit Helio Valentin [facility] 1.2840.114 350.1.13.10 4.2.7.2.686 [id number] [facility] 2023-06-09 00:00:00 2023-06-09 00:00:00 Orders Only Doctor Unassigned, Dodge [facility] 1.2.840.114 350.1.13.10 4.2.7.2.686 [id number] [facility] 2023-06-08 08:45:00 2023-06-08 09:28:02 Office [facility] 1.2840.114 350.1.13.10 4.2.7.2.686 [id number] [facility] 2023-06-08 08:45:00 2023-06-08 09:28:02 Outpatient R INGRID [facility] [id number] [facility] 2023-06-08 00:00:00 2023-06-08 00:00:00 [facility] 1.2840.114 350.1.13.10 4.2.7.2.686 [id number] [facility] 2023-05-07 09:41:00 2023-05-07 15:17:00 Emergency X [facility] ERT [id number] [facility] 2023-05-07 09:41:00 2023-05-07 15:17:00 Emergency [facility] 1.2840.114 350.1.13.10 4.2.7.2.686 [id number] [facility] 2023-04-29 00:00:00 2023-04-29 00:00:00 Arabella Steve [facility] 1.284.114 350.1.13.10 4.2.7.2.686 [id number] [facility] 2023-04-05 08:48:57 2023-04-05 08:48:57 Outpatient SFA [facility] [id number] Long Benavidez 2023-03-30 10:08:29 2023-03-30 10:08:29 Outpatient SFA [facility] [id number] Long [place] 2023-03-12 08:00:00 2023-03-12 08:00:00 Outpatient MEHRAN CHAUDHARY [facility] [id number] [facility] 2023-03-11 10:10:27 2023-03-11 23:59:00 Outpatient MEHRAN CHAUDHARY [facility] [id number] [facility] 2023-03-10 00:00:00 2023-03-10 00:00:00 Telephone Arabella Locke [facility] 1.284.114 350.1.13.10 4.2.7.2.686 [id number] [facility] 2023-03-08 11:00:00 2023-03-08 11:15:00 Manager Hi Visit 2, Adc Lab Arabella Locke [facility] 1.284.114 350.1.13.10 4.2.7.2.686 [id number] [facility] 2023-03-08 10:00:00 2023-03-08 11:00:30 Outpatient R ARABELLA LOCKE [facility] [id number] [facility] 2023-03-08 10:00:00 2023-03-08 11:00:30 Office Visit Arabella Locke [facility] 1.284.114 350.1.13.10 4.2.7.2.686 [id number] [facility] 2023-03-08 00:00:00 2023-03-08 00:00:00 Orders Only Doctor Unassigned, Dodge [facility] 1.0.114 350.1.13.10 4.2.7.2.686 [id number] [facility] 2022-12-14 00:00:00 2022-12-14 23:59:00 Outpatient R LAUREN CARCAMO CHOCKALINGA M [facility] [id number] [facility] 2022-12-14 00:00:00 2022-12-14 23:59:00 Hospital Encounter Lauren Carcamo [facility] 1.2840.114 350.1.13.10 4.2.7.2.686 [id number] [facility] 2022-12-10 00:00:00 2022-12-10 00:00:00 Telephone Arabella Locke [facility] 1.2.840.114 350.1.13.10 4.2.7.2.686 [id number] [facility] 2022-10-05 00:00:00 2022-10-05 00:00:00 Orders Only Doctor Unassigned, Dodge [facility] 1.2840.114 350.1.13.10 4.2.7.2.686 [id number] [facility] 2022-09-11 10:00:00 2022-09-11 10:00:00 Outpatient MEHRAN CHAUDHARY [facility] [id number] [facility] 2022-09-10 09:41:26 2022-09-10 23:59:00 Outpatient MEHRAN CHAUDHARY [facility] [id number] [facility] 2022-09-10 00:00:00 2022-09-10 00:00:00 Orders Only Doctor Unassigned, Dodge [facility] 1.2840.114 350.1.13.10 4.2.7.2.686 [id number] [facility] 2022-09-04 08:00:00 2022-09-04 08:00:00 Outpatient MEHRAN CHAUDHARY [facility] [id number] [facility] 2022-06-12 00:00:00 2022-06-12 23:59:00 Outpatient MEHRAN CHAUDHARY [facility] [id number] [facility] 2022-06-12 00:00:00 2022-06-12 23:59:00 Hospital Encounter Mehran Gil SOF[facility] 1..840.114 350.1.13.10 4.2.7.2.686 [id number] [facility] 2022-03-31 00:00:00 2022-03-31 00:00:00 Telephone Arabella Locke [facility] 1..840.114 350.1.13.10 4.2.7.2.686 [id number] [facility] 2022-03-06 07:53:17 2022-03-06 23:59:00 Outpatient R MEHRAN GIL [facility] [id number] [facility] 2022-03-06 07:53:17 2022-03-06 23:59:00 Outpatient R MEHRAN GIL [facility] [id number] [facility] 2022-03-06 08:20:00 2022-03-06 08:20:00 Outpatient R MEHRAN GIL [facility] [id number] [facility] 2022-03-05 13:55:18 2022-03-05 23:59:00 Outpatient R ARABELLA LOCKE [facility] [id number] [facility] 2022-03-05 16:15:00 2022-03-05 16:30:00 Manager Hi Visit 2, Adc Lab Arabella Locke [facility] 1..840.114 350.1.13.10 4.2.7.2.686 [id number] [facility] 2022-03-05 15:00:00 2022-03-05 15:31:51 Outpatient R ARABELLA LOCKE [facility] [id number] [facility] 2022-03-05 15:00:00 2022-03-05 15:31:51 Office Visit Arabella Locke [facility] 1..840.114 350.1.13.10 4.2.7.2.686 [id number] [facility] 2022-03-05 15:00:00 2022-03-05 15:31:51 Outpatient R ARABELLA LOCKE [facility] [id number] [facility] 2022-03-05 00:00:00 2022-03-05 00:00:00 Orders Only Doctor Unassigned, Dodge [facility] 1.840.114 350.1.13.10 4.2.7.2.686 [id number] [facility] 2022-03-03 00:00:00 2022-03-03 00:00:00 Orders Only Doctor Unassigned, Dodge [facility] 1.2840.114 350.1.13.10 4.2.7.2.686 [id number] [facility] 2022-02-20 11:40:00 2022-02-20 11:40:00 Outpatient R MEHRAN GIL [facility] [id number] [facility] 2021-11-10 00:00:00 2021-11-10 00:00:00 Letter (Out) Stephie Hardwick [facility] 1..840.114 350.1.13.10 4.2.7.2.686 [id number] [facility] 2021-11-09 15:23:00 2021-11-09 15:49:00 Emergency X LILLIANA COYNE [facility] [id number] [facility] 2021-11-09 15:23:00 2021-11-09 15:49:00 Emergency Lilliana Coyne [facility] 1..840.114 350.1.13.10 4.2.7.2.686 [id number] [facility] 2021-10-13 00:00:00 2021-10-13 23:59:00 Outpatient R JEFFERY MEHRAN [facility] [id number] [facility] 2021-10-13 00:00:00 2021-10-13 23:59:00 Hospital Encounter Jeffery [facility] 1..840.114 350.1.13.10 4.2.7.2.686 [id number] [facility] 2021-09-04 15:04:35 2021-09-04 15:33:39 Office Visit Arabella Locke [facility] 1..840.114 350.1.13.10 4.2.7.2.686 [id number] [facility] 2021-09-04 15:30:00 2021-09-04 15:30:00 Outpatient ARABELLA POWELL [facility] [id number] [facility] 2021-07-08 13:51:24 2021-07-08 23:59:00 Hospital Encounter Edgar Hairston [facility] 1.2.840.114 350.1.13.10 4.2.7.2.686 [id number] [facility] 2021-07-08 14:00:00 2021-07-08 14:00:00 Outpatient EDGAR REYES [facility] [id number] [facility] 2021-06-12 15:45:00 2021-06-12 15:45:00 Outpatient EDGAR REYES [facility] [id number] [facility] 2021-05-01 12:44:31 2021-05-01 13:27:16 Office Visit Arabella Locke [facility] 1.2.840.114 350.1.13.10 4.2.7.2.686 [id number] [facility] 2021-05-01 13:00:00 2021-05-01 13:00:00 Outpatient R ARABELLA LOCKE [facility] [id number] [facility] 2021-04-16 08:06:55 2021-04-16 23:59:00 Outpatient EDGAR REYES [facility] [id number] [facility] 2021-04-16 00:00:00 2021-04-16 00:00:00 Orders Only Doctor Unassigned, Dodge [facility] 1.2840.114 350.1.13.10 4.2.7.2.686 [id number] [facility] 2021-03-31 00:00:00 2021-03-31 00:00:00 Transition of Care Rivka Morales 1.2.840.114 350.1.13.10 4.2.7.2.686 [id number] [facility] 2021-03-24 10:58:00 2021-03-28 18:45:00 Hospital Encounter Newton Tinoco Masood Raja, Muhammad [facility] 1.2.840.114 350.1.13.10 4.2.7.2.686 [id number] [facility] 2021-03-24 10:58:00 2021-03-28 18:45:00 Inpatient U CARLENE STEVENS [facility] [id number] [facility] 2021-03-27 10:32:00 2021-03-27 11:52:00 Anesthesia Event Evelyn Coyne Peyton Santana 1.2.840.1 76392.1.1 3.104.2.7 .3.261823 .8 [id number] [facility] 2021-03-26 17:53:00 2021-03-26 17:53:00 Anesthesia Event Juan Rush 1.2.840.1 52072.1.1 3.104.2.7 .3.471047 .8 [id number] [facility] 2021-03-25 00:00:00 2021-03-25 00:00:00 Travel 1.2.840.1 17312.1.1 3.104.2.7 .3.084171 .8 1.2.840.114 350.1.13.10 4.2.7.3.698 [id number] [facility] 2021-03-24 00:00:00 2021-03-24 00:00:00 Travel 1.2.840.1 93376.1.1 3.104.2.7 .3.552115 .8 1.2.840.114 350.1.13.10 4.2.7.3.698 [id number] [facility] 2021-03-24 00:00:00 2021-03-24 00:00:00 Orders Only Doctor Unassigned, Dodge 1.2.840.1 05524.1.1 3.104.2.7 .3.914152 .8 [id number] [facility] 2020-08-02 16:00:00 2020-08-02 16:00:00 [facility] [id number] [facility] 2020-04-26 16:20:00 2020-04-26 16:20:00 Outpatient [facility] [id number] [facility] 2020-02-18 22:14:00 2020-02-18 22:14:[address] [facility] [facility] [address] [facility] [id number] [facility] 2020-01-26 15:00:00 2020-01-26 15:00:00 [facility] [address] [facility] [id number] [facility] 2019-10-29 20:49:00 2019-10-29 20:49:00 [facility] [address] [address] [facility] [id number] [facility] 2019-10-27 14:40:00 2019-10-27 14:40:00 [facility] [address] [facility] [id number] [facility] 2019-07-25 00:21:00 2019-07-25 00:21:00 [facility] [id number] [facility] 2019-07-21 15:20:00 2019-07-21 15:20:[address] [facility] [address] [facility] [id number] [facility] 2019-06-19 12:04:00 2019-06-19 12:04:00 [facility] [id number] [facility] 2019-02-08 15:30:00 2019-02-08 15:30:00 [facility] [address] [facility] [id number] [facility] 2019-02-06 13:37:00 2019-02-06 13:37:00 [facility] [id number] [facility] 2019-02-03 15:30:00 2019-02-03 15:30:00 [facility] [id number] [facility] 2018-11-16 08:32:00 2018-11-16 08:32:[address] [facility] [facility] [address] [facility] [id number] [facility] 2018-10-21 14:30:00 2018-10-21 14:30:00 [facility] [id number] [facility] 2018-08-19 16:00:00 2018-08-19 16:00:00 [facility] [id number] [facility] 2018-07-25 13:00:00 2018-07-25 13:00:00 [facility] [id number] [facility] 2018-07-14 11:53:00 2018-07-14 11:53:00 [facility] [id number] [facility] 2018-07-11 15:00:00 2018-07-11 15:00:00 [facility] [id number] [facility] 2018-03-04 14:30:00 2018-03-04 14:30:00 [facility] [id number] [facility] Results Test Description Test Time Test Comments Results Result Co mments Source [facility]-VOID RES,US,[id number] 18:33:00* Test Item Value Reference Range Interpretation Comme nts PVR (URINE VOLUME) (test code = 5193) 23 ml 0-100 [facility] Urinalysis, [id number] 18:56:00 * Test Item Value Reference Range Interpretation Comme nts POCT U SP GRAV (test code = 3255) 1.020 mg/dl 1.005-1.025 POCT PH U (test code = 3254) 5.5 mg/dl 5-8 POCT U LEUK EST (test code = 3263) Negative Negative - Negative POCT U NIT (test code = 3262) Positive Negative - Negati ve A POCT U PROT (test code = 3259) Negative Negative - Negative POCT U GLU (test code = 3256) Negative Negative - Negati ve POCT U KETONE (test code = 3258) Trace Negative - Negative A POCT U UROBILI (test code = 3260) 0.2 mg/dl 0.2-1 POCT U BILI (test code = 3261) Negative Negative - Negative POCT U BLD (test code = 3257) Small Negative - Negati ve A POCT U COLOR (test code = 3266) Yellow POCT U APPEAR (test code = 3267) Clear Lab Interpretation (test cod e = 56831-0) Abnormal [facility],POST-VOID RES,US,[id number] 18:56:00* Test Item Value Reference Range Interpretation Comme nts PVR (URINE VOLUME) (test code = 5193) 83 ml 0-100 [facility]lineTROPONIN [id number] 02:49:16* Test Item Value Reference Range Interpretation Comme nts TROPONIN I (test code = 3678337414) 0.004 ng/mL <=0.034 JUAN JOSÉ (test code = JUAN JOSÉ) Reference (Normal) Range (defined by the 99th percentile reference limit): <= 0.034 ng/mL Note: Cardiac troponin begins to rise 3-4 hours after the onset of ischemia. Repeat in 4-6 hours if the sample was drawn within 3-4 hours of the onset of the symptom and found normal. Diagnosis of myocardial injury is made with acute changes in cTn concentrations with at least one serial sample above the 99th percentile upper reference limit (URL), taken together with the patient's clinical presentation. Biotin has been reported to cause a negative bias, interpret results relative to patient's use of biotin. Lab Interpretation (test code = 53006-1) Normal [facility]COMP. METABOLIC PANEL ([id number] 02:38:16* Test Item Value Reference Range Interpretation Comme nts NA (test code = 8089933327) 134 mmol/L 135-145 L K (test code = 7695020075) 4.2 mmol/L 3.5-5.0 CL (test code = 1963584199) 100 mmol/L 98-108 CO2 TOTAL (test code = 9309357673) 29 mmol/L 23-31 AGAP (test code = 4831914750) 5 2-16 BUN (test code = 8839207515) 13 mg/dL 7-23 GLUCOSE (test code = 1376837368) 180 mg/dL 70-110 H CREATININE (test code = 2160-0) 0.73 mg/dL 0.50-1.04 TOTAL BILI (test code = 4795456347) 1.4 mg/dL 0.1-1.1 H CALCIUM (test code = 5239513755) 9.1 mg/dL 8.6-10.6 T PROTEIN (test code = 7510245039) 7.3 g/dL 6.3-8.2 ALBUMIN (test code = 5644064789) 4.1 g/dL 3.5-5.0 ALK PHOS (test code = 3550290655) 70 U/L 34-122 ALTv (test code = 1742-6) 19 U/L 5-35 AST(SGOT) (test code = 2645419363) 21 U/L 13-40 eGFR (test code = 13297-3) 90.3 mL/min/1.73m2 CKD-EPI eGFR (2020). Assuming creatinine has been stable day-to-day for at least three months, the eGFR indicates Category G1 (>= 90 mL/min/1.73 m2) Lab Interpretation (test code = 23060-6) [facility] 02:37:30* Test Item Value Reference Range Interpretation Comme nts LIPASE (test code = 4765168237) 54 U/L 0-220 Lab Interpretation (test cod e = 61515-2) Normal [facility] WITH [id number] 02:25:13* Test Item Value Reference Range Interpretation Comme nts WBC (test code = 6690-2) 8.16 4.30-11.10 RBC (test code = 789-8) 4.14 3.93-5.25 HGB (test code = 718-7) 12.7 g/dL 11.6-15.0 HCT (test code = 4544-3) 37.4 % 35.7-45.2 MCV (test code = 787-2) 90.3 fL 80.6-95.5 MCH (test code = 785-6) 30.7 pg 25.9-32.8 MCHC (test code = 786-4) 34.0 g/dL 31.6-35.1 RDW-SD (test code = 73005-8) 41.7 fL 39.0-49.9 RDW-CV (test code = 788-0) 12.6 % 12.0-15.5 PLT (test code = 777-3) 197 166-358 MPV (test code = 26633-0) 11.0 fL 9.5-12.9 NRBC/100 WBC (test code = 2333471927) 0.0 0.0-10.0 NRBC x10^3 (test code = 2550194975) See_Comment [Automated Mapkina ge] The system which generated this result transmitted reference range: 10*3/?L. The reference range was not used to interpret this result as normal/abnormal. GRAN MAT (NEUT) % (test code = 770-8) 81.8 % IMM GRAN % (test code = 8090079921) 0.40 % LYMPH % (test code = 736-9) 10.7 % MONO % (test code = 5905-5) 6.4 % EOS % (test code = 713-8) 0.5 % BASO % (test code = 706-2) 0.2 % GRAN MAT x10^3(ANC) (test code = 8549179166) 6.68 10*3/uL 1.88-7.09 IMM GRAN x10^3 (test code = 7057160085) 0.03 10*3/uL 0.00-0.06 LYMPH x10^3 (test code = 731-0) 0.87 10*3/uL 1.32-3.29 L MONO x10^3 (test code = 742-7) 0.52 10*3/uL 0.33-0.92 EOS x10^3 (test code = 711-2) 0.04 10*3/uL 0.03-0.39 BASO x10^3 (test code = 704-7) 0.01-0.07 Lab Interpretation (test code = 83664-1) Abnormal [facility]line[facility]ansthoracic echo (TTE)2024-03-08 22:05:07* Test Item Value Reference Range Interpretation Comme nts Height (test code = 2689345988) 60 in Weight (test code = 9293746083) 148 lbs Systolic BP (test code = 1871200198) 132 mmHg Diastolic BP (test code = 5070684041) 72 mmHg Heart Rate (test code = 7095724887) 79 bpm EF(Teich) (test code = 3032031970) 64.90 % LVIDD (test code = 0827375381) 4.60 cm LVIDS (test code = 9124329372) 3.00 cm Left Ventricular End Systolic Volume by Teichholz Method (test code = 1993503) 34.1 mL Left Ventricular End Diastolic Volume by Teichholz Method (test code = 8064776) 97.3 mL IVS (test code = 5196007638) 1.00 cm LVPWD (test code = 6939810845) 1.00 cm LVOT diameter (test code = 8399802756) 2.04 cm LVOT area (test code = 3292271913) 3.30 cm2 FS (test code = 8326000190) 36 % LA size (test code = 9177951775) 3.6 cm RVOT Proximal Diameter (test code = 3318026790) 3.20 cm ACS (test code = 9132882421) 2.00 cm TR Peak Leann (test code = 8135778138) 267.4 cm/s Triscuspid Valve Regurgitation Peak Gradient (test code = 0253494463) 28.6 mmHg Ao root diam (test code = 4518383954) 3.10 cm Aortic root (test code = 4871215809) 3.1 cm Ao root annulus (test code = 4690485536) 3.1 cm PW (test code = 2358102141) 1.00 cm 0.6-1.1 EF - 2D (test code = 98853608) 64.90 % Interventricular Septum Diastolic Thickness by 2D (test code = 7854222) 1.00 cm BSA (test code = 6973403765) 1.64 m2 E wave decelartion time (test code = 5224002182) 0.26 s MV Peak E Leann (test code = 0106080278) 100.5 cm/s MV Peak A Leann (test code = 2122261006) 137.4 cm/s E/A ratio (test code = 5040176040) 0.73 ratio MV Prop V (test code = 8828785508) 37.40 cm/s LVOT stroke volume (test code = 7307596140) 89.00 cm3 LVOT peak leann (test code = 3445864069) 134.2 cm/s LVOT mn grad (test code = 6072890673) 3.4 mmHg AV LVOT peak gradient (test code = 1833805615) 7.2 mmHg LVOT peak VTI (test code = 6018226314) 27.1 cm LV V1 mean (test code = 6270311067) 86.50 cm/s Aortic valve mean velocity (test code = 7833833702) 116.8 cm/s Ao peak leann (test code = 8349022728) 185.4 cm/s Ao VTI (test code = 9961837123) 37.4 cm AV area by cont VTI (test code = 6364868189) 2.4 cm2 AV area peak leann (test code = 0832748945) 2.4 cm2 Ao max PG (test code = 7120522789) 13.70 mm[Hg] AV peak gradient (test code = 4449821654) 13.7 mmHg AV valve area (test code = 1567946107) 2.38 cm2 AV mean gradient (test code = 1454517806) 6.3 mmHg MR max PG (test code = 5363960162) 70.10 mm[Hg] MR max leann (test code = 0378926347) 418.60 cm/s Mr max leann (test code = 4961195187) 418.6 m/s Radiology Study observation (narrative) (test code = 96876-6) JUAN JOSÉ (test code = JUAN JOSÉ) Table formatting f rom the original result was not included. ?Left?Ventricle: Left ventricle size is normal. Normal wall thickness. Normal wall motion. Normal wall motion. Normal systolic function with a visually estimated EF of 60 - 65%. There is impaired relaxation. ?Tricuspid?Valve: Right ventricular systolic pressure is normal. ?RA pressure is 0-5 mmHg. VitalsHeight Weight BSA (Calculated - sq m) BP Pulse 5' (1.524 m) 151 lb 3.2 oz (68.6 kg) 1.7 sq meters 119/58 76 Left VentricleLeft ventricle size is normal. Normal wall thickness. Normal wall motion. Normal systolic function with a visually estimated EF of 60 - 65%. There is impaired relaxation.Right VentricleRight ventricle size is normal. Normal systolic function.Left AtriumLeft atrium size is normal.Right AtriumRight atrium size is normal.IVC/SVCIVC diameter is less than or equal to 21 mm and decreases greater than 50% during inspiration; therefore the estimated right atrial pressure is normal (~0-5 mmHg).Mitral ValveMild mitral annular calcification. Trace transvalvular regurgitation.Tricusp id ValveTricuspid valve structure is grossly normal. Trace transvalvular regurgitation. Right ventricular systolic pressure is normal. RA pressure is 0-5 mmHg.Aortic ValveTricuspid. Mildly thickened cusps. Mildly calcified cusps. No transvalvular regurgitation.Pulmoni c ValvePulmonic valve is grossly normal. Mild transvalvular regurgitation.Ascendi ng AortaNormal sized aorta.PericardiumNo pericardial effusion.Study DetailsStudy quality was adequate. A complete echocardiogram was performed using 2D, color flow Doppler and spectral Doppler. The apical, parasternal, subcostal and suprasternal views were obtained. [facility],POST-VOID RES,US,[id number] 19:39:00* Test Item Value Reference Range Interpretation Comme nts PVR (URINE VOLUME) (test code = 5193) 0 ml 0-100 [facility]line[facility],POST-VOID RES,US,[id number] 19:39:00* Test Item Value Reference Range Interpretation Comme nts PVR (URINE VOLUME) (test code = 5193) 0 ml 0-100 [facility]line[facility] ABDOMEN PELVIS W [id number] 02:35:28ABDOMEN AND PELVIS CT WITH INTRAVENOUS CONTRAST. CLINICAL INDICATIONS: ? Abdominal pain, acute, nonlocalized Ordering Physician: ; CONCEPCIÓN FLORES TECHNIQUE: ?Axial computed tomographic images of the abdomen and pelviswere performed after administration of nonionic intravenous contrast. TheCT Imaging data was obtained utilizing radiation dose parameters inaccordance with ALARA (As Low As Reasonably Achievable) Quality of Study: Good - Diagnostic COMPARISON: ?07/09/2023 FINDINGS: ? Colonic diverticulosis without evidence of acute diverticulitis. Mild tomoderate stool within the colon. Normal appendix. No evidence of mechanicalbowel obstruction. Urinary bladder is mildly distended. Tiny bubble of gasin the bladder lumen. Correlate for any recent catheterization orinstrumentation. Uterus appears absent. No free fluid or freeintraperitoneal gas. Geographic region of decreased enhancement along the anterior right renalmid zone image 48, possibly a region of pyelonephritis. Correlate withurinalysis No hydronephrosis of the kidneys. There are small cysts on the kidneys.Right adrenal gland appears normal. Mild thickening and nodularity leftadrenal gland may represent adenomatous or hyperplastic changes. The spleenappears normal. Gas and fluid in the stomach. The duodenum contains severalsmall diverticula. Pancreas appears normal. Main pancreatic duct is normalin caliber. Common bile duct is mildly dilated which may representphysiologic changes of prior cholecystectomy. Heart size is normal. No pericardial effusion. Pacemaker leads noted in theright atrium and right ventricle apex. Sequential atelectasis at the lung bases. Chronic-appearing compression along the superior endplate of L4. Nocompression fracture. No suspicious lytic or blastic lesions.[facility]lineComplete Metabolic [id number] 02:25:34* Test Item Value Reference Range Interpretation Comme nts NA (test code = 4518640546) 137 mmol/L 135-145 K (test code = 3390322399) 4.3 mmol/L 3.5-5.0 CL (test code = 1457794029) 104 mmol/L 98-108 CO2 TOTAL (test code = 8802489059) 28 mmol/L 23-31 AGAP (test code = 2464318806) 5 2-16 BUN (test code = 4217087193) 13 mg/dL 7-23 GLUCOSE (test code = 2697226929) 104 mg/dL 70-110 CREATININE (test code = 2938013643) 0.60 mg/dL 0.50-1.04 TOTAL BILI (test code = 9210729407) 1.0 mg/dL 0.1-1.1 CALCIUM (test code = 2188327498) 8.9 mg/dL 8.6-10.6 T PROTEIN (test code = 3306858478) 7.5 g/dL 6.3-8.2 ALBUMIN (test code = 7281176412) 4.3 g/dL 3.5-5.0 ALK PHOS (test code = 6654384446) 68 U/L 34-122 ALTv (test code = 1742-6) 23 U/L 5-35 AST(SGOT) (test code = 5700693346) 38 U/L 13-40 eGFR (test code = 64774-6) 99.1 mL/min/1.73m2 CKD-EPI eGFR (20 21). Assuming creatinine has been stable day-to-day for at least three months, the eGFR indicates Category G1 (>= 90 mL/min/1.73 m2) [facility]lineLipase, [id number] 02:25:14* Test Item Value Reference Range Interpretation Comme nts LIPASE (test code = 2618687033) 55 U/L 0-220 Lab Interpretation (test cod e = 27206-6) Normal [facility] with [id number] 02:09:30* Test Item Value Reference Range Interpretation Comme nts WBC (test code = 6690-2) 8.44 4.30-11.10 RBC (test code = 789-8) 4.01 3.93-5.25 HGB (test code = 718-7) 12.5 g/dL 11.6-15.0 HCT (test code = 4544-3) 36.4 % 35.7-45.2 MCV (test code = 787-2) 90.8 fL 80.6-95.5 MCH (test code = 785-6) 31.2 pg 25.9-32.8 MCHC (test code = 786-4) 34.3 g/dL 31.6-35.1 RDW-SD (test code = 25445-4) 41.1 fL 39.0-49.9 RDW-CV (test code = 788-0) 12.3 % 12.0-15.5 PLT (test code = 777-3) 253 166-358 MPV (test code = 91126-9) 10.8 fL 9.5-12.9 NRBC/100 WBC (test code = 4928238560) 0.0 0.0-10.0 NRBC x10^3 (test code = 3344554701) See_Comment [Automated me ssage] The system which generated this result transmitted reference range: 10*3/?L. The reference range was not used to interpret this result as normal/abnormal. GRAN MAT (NEUT) % (test code = 770-8) 77.6 % IMM GRAN % (test code = 9903626922) 0.20 % LYMPH % (test code = 736-9) 16.0 % MONO % (test code = 5905-5) 4.0 % EOS % (test code = 713-8) 2.0 % BASO % (test code = 706-2) 0.2 % GRAN MAT x10^3(ANC) (test code = 8769215459) 6.54 10*3/uL 1.88-7.09 IMM GRAN x10^3 (test code = 7376732170) 0.00-0.06 LYMPH x10^3 (test code = 731-0) 1.35 10*3/uL 1.32-3.29 MONO x10^3 (test code = 742-7) 0.34 10*3/uL 0.33-0.92 EOS x10^3 (test code = 711-2) 0.17 10*3/uL 0.03-0.39 BASO x10^3 (test code = 704-7) 0.01-0.07 [facility]lineCom. Metabolic Panel (16291)2023-12-20 17:07:05* Test Item Value Reference Range Interpretation Comme nts NA (test code = 1370813867) 137 mmol/L 135-145 K (test code = 7897874381) 4.5 mmol/L 3.5-5.0 CL (test code = 7815349305) 108 mmol/L 98-108 CO2 TOTAL (test code = 2906188659) 22 mmol/L 23-31 L AGAP (test code = 1165774685) 7 2-16 BUN (test code = 9867155361) 19 mg/dL 7-23 GLUCOSE (test code = 4859210478) 121 mg/dL 70-110 H CREATININE (test code = 4040357812) 0.65 mg/dL 0.50-1.04 TOTAL BILI (test code = 7911999121) 1.7 mg/dL 0.1-1.1 H CALCIUM (test code = 8830308508) 9.1 mg/dL 8.6-10.6 T PROTEIN (test code = 6236296727) 7.7 g/dL 6.3-8.2 ALBUMIN (test code = 9676165601) 4.3 g/dL 3.5-5.0 ALK PHOS (test code = 5577687093) 69 U/L 34-122 ALTv (test code = 1742-6) 29 U/L 5-35 AST(SGOT) (test code = 7325479019) 31 U/L 13-40 eGFR (test code = 34333-5) 97.2 mL/min/1.73m2 CKD-EPI eGFR (2020). Assuming creatinine has been stable day-to-day for at least three months, the eGFR indicates Category G1 (>= 90 mL/min/1.73 m2) Lab Interpretation (test code = 13087-5) Abnormal [facility] with [id number] 16:53:44* Test Item Value Reference Range Interpretation Comme nts WBC (test code = 6690-2) 4.01 4.30-11.10 L RBC (test code = 789-8) 4.51 3.93-5.25 HGB (test code = 718-7) 13.8 g/dL 11.6-15.0 HCT (test code = 4544-3) 41.2 % 35.7-45.2 MCV (test code = 787-2) 91.4 fL 80.6-95.5 MCH (test code = 785-6) 30.6 pg 25.9-32.8 MCHC (test code = 786-4) 33.5 g/dL 31.6-35.1 RDW-SD (test code = 67889-5) 41.5 fL 39.0-49.9 RDW-CV (test code = 788-0) 12.5 % 12.0-15.5 PLT (test code = 777-3) 233 166-358 MPV (test code = 30763-9) 10.6 fL 9.5-12.9 NRBC/100 WBC (test code = 9347303821) 0.0 0.0-10.0 NRBC x10^3 (test code = 4931535640) See_Comment [Automated messa ge] The system which generated this result transmitted reference range: 10*3/?L. The reference range was not used to interpret this result as normal/abnormal. GRAN MAT (NEUT) % (test code = 770-8) 75.2 % IMM GRAN % (test code = 7927013699) 0.20 % LYMPH % (test code = 736-9) 16.7 % MONO % (test code = 5905-5) 6.5 % EOS % (test code = 713-8) 1.2 % BASO % (test code = 706-2) 0.2 % GRAN MAT x10^3(ANC) (test code = 1995429220) 3.01 10*3/uL 1.88-7.09 IMM GRAN x10^3 (test code = 4904808241) 0.00-0.06 LYMPH x10^3 (test code = 731-0) 0.67 10*3/uL 1.32-3.29 L MONO x10^3 (test code = 742-7) 0.26 10*3/uL 0.33-0.92 L EOS x10^3 (test code = 711-2) 0.05 10*3/uL 0.03-0.39 BASO x10^3 (test code = 704-7) 0.01-0.07 Lab Interpretation (test code = 44903-3) Abnormal [facility],POST-VOID RES,US,[id number] 14:32:00* Test Item Value Reference Range Interpretation Comme nts PVR (URINE VOLUME) (test code = 5193) 17 ml 0-100 [facility],POST-VOID RES,US,[id number] 14:32:00* Test Item Value Reference Range Interpretation Comme nts PVR (URINE VOLUME) (test code = 5193) 17 ml 0-100 [facility] Urinalysis, [id number] 14:28:00 * Test Item Value Reference Range Interpretation Comme nts POCT U SP GRAV (test code = 3255) 1.015 mg/dl 1.005-1.025 POCT PH U (test code = 3254) 7 mg/dl 5-8 POCT U LEUK EST (test code = 3263) small Negative - Negative POCT U NIT (test code = 3262) positive Negative - Negati ve POCT U PROT (test code = 3259) neg Negative - Negative POCT U GLU (test code = 3256) neg Negative - Negati ve POCT U KETONE (test code = 3258) neg Negative - Negative POCT U UROBILI (test code = 3260) 0.2 mg/dl 0.2-1 POCT U BILI (test code = 3261) neg Negative - Negative POCT U BLD (test code = 3257) small Negative - Negati ve POCT U COLOR (test code = 3266) yellow POCT U APPEAR (test code = 3267) clear [facility] Urinalysis, [id number] 14:28:00 * Test Item Value Reference Range Interpretation Comme nts POCT U SP GRAV (test code = 3255) 1.015 mg/dl 1.005-1.025 POCT PH U (test code = 3254) 7 mg/dl 5-8 POCT U LEUK EST (test code = 3263) small Negative - Negative POCT U NIT (test code = 3262) positive Negative - Negati ve POCT U PROT (test code = 3259) neg Negative - Negative POCT U GLU (test code = 3256) neg Negative - Negati ve POCT U KETONE (test code = 3258) neg Negative - Negative POCT U UROBILI (test code = 3260) 0.2 mg/dl 0.2-1 POCT U BILI (test code = 3261) neg Negative - Negative POCT U BLD (test code = 3257) small Negative - Negati ve POCT U COLOR (test code = 3266) yellow POCT U APPEAR (test code = 3267) clear [facility] URINALYSIS W/O SPECIFIC [id number] 21:00:00* Test Item Value Reference Range Interpretation Comme nts POCT PH U (test code = 3254) 7 mg/dl 5-8 POCT U LEUK EST (test code = 3263) + Negative - Negative POCT U NIT (test code = 3262) Positive Negative - Negati ve POCT U PROT (test code = 3259) Negative Negative - Negat jean POCT U GLU (test code = 3256) Normal Negative - Negati ve POCT U KETONE (test code = 3258) Negative Negative - Neg ative POCT U BLD (test code = 3257) 250 Negative - Negati ve [facility] URINALYSIS W/O SPECIFIC [id number] 21:00:00* Test Item Value Reference Range Interpretation Comme nts POCT PH U (test code = 3254) 7 mg/dl 5-8 POCT U LEUK EST (test code = 3263) + Negative - Negative POCT U NIT (test code = 3262) Positive Negative - Negati ve POCT U PROT (test code = 3259) Negative Negative - Negat jean POCT U GLU (test code = 3256) Normal Negative - Negati ve POCT U KETONE (test code = 3258) Negative Negative - Neg ative POCT U BLD (test code = 3257) 250 Negative - Negati ve [facility] URINALYSIS W/O SPECIFIC [id number] 21:00:00* Test Item Value Reference Range Interpretation Comme nts POCT PH U (test code = 3254) 7 mg/dl 5-8 POCT U LEUK EST (test code = 3263) + Negative - Negative POCT U NIT (test code = 3262) Positive Negative - Negati ve POCT U PROT (test code = 3259) Negative Negative - Negat jean POCT U GLU (test code = 3256) Normal Negative - Negati ve POCT U KETONE (test code = 3258) Negative Negative - Neg ative POCT U BLD (test code = 3257) 250 Negative - Negati ve [facility] URINALYSIS, [id number] 16:52:00 * Test Item Value Reference Range Interpretation Comme nts POCT U SP GRAV (test code = 3255) 1.015 mg/dl 1.005-1.025 POCT PH U (test code = 3254) 5.5 mg/dl 5-8 POCT U LEUK EST (test code = 3263) trace Negative - Negative POCT U NIT (test code = 3262) positive Negative - Negati ve POCT U PROT (test code = 3259) negative Negative - Negative POCT U GLU (test code = 3256) negative Negative - Negati ve POCT U KETONE (test code = 3258) negative Negative - Negative POCT U UROBILI (test code = 3260) 0.2 mg/dl 0.2-1 POCT U BILI (test code = 3261) negative Negative - Negative POCT U BLD (test code = 3257) small Negative - Negati ve POCT U COLOR (test code = 3266) yellow POCT U APPEAR (test code = 3267) clear [facility] URINALYSIS, [id number] 16:52:00 * Test Item Value Reference Range Interpretation Comme nts POCT U SP GRAV (test code = 3255) 1.015 mg/dl 1.005-1.025 POCT PH U (test code = 3254) 5.5 mg/dl 5-8 POCT U LEUK EST (test code = 3263) trace Negative - Negative POCT U NIT (test code = 3262) positive Negative - Negati ve POCT U PROT (test code = 3259) negative Negative - Negative POCT U GLU (test code = 3256) negative Negative - Negati ve POCT U KETONE (test code = 3258) negative Negative - Negative POCT U UROBILI (test code = 3260) 0.2 mg/dl 0.2-1 POCT U BILI (test code = 3261) negative Negative - Negative POCT U BLD (test code = 3257) small Negative - Negati ve POCT U COLOR (test code = 3266) yellow POCT U APPEAR (test code = 3267) clear [facility] URINALYSIS, [id number] 16:52:00 * Test Item Value Reference Range Interpretation Comme nts POCT U SP GRAV (test code = 3255) 1.015 mg/dl 1.005-1.025 POCT PH U (test code = 3254) 5.5 mg/dl 5-8 POCT U LEUK EST (test code = 3263) trace Negative - Negative POCT U NIT (test code = 3262) positive Negative - Negati ve POCT U PROT (test code = 3259) negative Negative - Negative POCT U GLU (test code = 3256) negative Negative - Negati ve POCT U KETONE (test code = 3258) negative Negative - Negative POCT U UROBILI (test code = 3260) 0.2 mg/dl 0.2-1 POCT U BILI (test code = 3261) negative Negative - Negative POCT U BLD (test code = 3257) small Negative - Negati ve POCT U COLOR (test code = 3266) yellow POCT U APPEAR (test code = 3267) clear [facility] URINALYSIS W/O SPECIFIC [id number] 16:00:00* Test Item Value Reference Range Interpretation Comme nts POCT PH U (test code = 3254) 5 mg/dl 5-8 POCT U LEUK EST (test code = 3263) neg Negative - Negative POCT U NIT (test code = 3262) neg Negative - Negati ve POCT U PROT (test code = 3259) neg Negative - Negat jean POCT U GLU (test code = 3256) neg Negative - Negati ve POCT U KETONE (test code = 3258) neg Negative - Neg ative POCT U BLD (test code = 3257) 50 Negative - Negati ve [facility] URINALYSIS W/O SPECIFIC [id number] 16:00:00* Test Item Value Reference Range Interpretation Comme nts POCT PH U (test code = 3254) 5 mg/dl 5-8 POCT U LEUK EST (test code = 3263) neg Negative - Negative POCT U NIT (test code = 3262) neg Negative - Negati ve POCT U PROT (test code = 3259) neg Negative - Negat jean POCT U GLU (test code = 3256) neg Negative - Negati ve POCT U KETONE (test code = 3258) neg Negative - Neg ative POCT U BLD (test code = 3257) 50 Negative - Negati ve [facility] URINALYSIS W SPECIFIC [id number] 14:55:00* Test Item Value Reference Range Interpretation Comme nts POCT U SP GRAV (test code = 3255) 1.015 mg/dl 1.005-1.025 POCT PH U (test code = 3254) 7 mg/dl 5-8 POCT U LEUK EST (test code = 3263) neg Negative - Negative POCT U NIT (test code = 3262) neg Negative - Negati ve POCT U PROT (test code = 3259) neg Negative - Negative POCT U GLU (test code = 3256) normal Negative - Negati ve POCT U KETONE (test code = 3258) neg Negative - Negative POCT U UROBILI (test code = 3260) normal 0.2-1 POCT U BILI (test code = 3261) neg Negative - Negative POCT U BLD (test code = 3257) neg Negative - Negati ve POCT U COLOR (test code = 3266) yellow POCT U APPEAR (test code = 3267) clear Lab Interpretation (test cod e = 12556-8) Normal [facility] URINALYSIS W SPECIFIC [id number] 14:55:00* Test Item Value Reference Range Interpretation Comme nts POCT U SP GRAV (test code = 3255) 1.015 mg/dl 1.005-1.025 POCT PH U (test code = 3254) 7 mg/dl 5-8 POCT U LEUK EST (test code = 3263) neg Negative - Negative POCT U NIT (test code = 3262) neg Negative - Negati ve POCT U PROT (test code = 3259) neg Negative - Negative POCT U GLU (test code = 3256) normal Negative - Negati ve POCT U KETONE (test code = 3258) neg Negative - Negative POCT U UROBILI (test code = 3260) normal 0.2-1 POCT U BILI (test code = 3261) neg Negative - Negative POCT U BLD (test code = 3257) neg Negative - Negati ve POCT U COLOR (test code = 3266) yellow POCT U APPEAR (test code = 3267) clear Lab Interpretation (test cod e = [id number]) Normal [facility] URINALYSIS W SPECIFIC [id number] 14:55:00* Test Item Value Reference Range Interpretation Comme nts POCT U SP GRAV (test code = 3255) 1.015 mg/dl 1.005-1.025 POCT PH U (test code = 3254) 7 mg/dl 5-8 POCT U LEUK EST (test code = 3263) neg Negative - Negative POCT U NIT (test code = 3262) neg Negative - Negati ve POCT U PROT (test code = 3259) neg Negative - Negative POCT U GLU (test code = 3256) normal Negative - Negati ve POCT U KETONE (test code = 3258) neg Negative - Negative POCT U UROBILI (test code = 3260) normal 0.2-1 POCT U BILI (test code = 3261) neg Negative - Negative POCT U BLD (test code = 3257) neg Negative - Negati ve POCT U COLOR (test code = 3266) yellow POCT U APPEAR (test code = 3267) clear Lab Interpretation (test cod e = 97178-5) Normal [facility] URINALYSIS W SPECIFIC [id number] 14:55:00* Test Item Value Reference Range Interpretation Comme nts POCT U SP GRAV (test code = 3255) 1.015 mg/dl 1.005-1.025 POCT PH U (test code = 3254) 7 mg/dl 5-8 POCT U LEUK EST (test code = 3263) neg Negative - Negative POCT U NIT (test code = 3262) neg Negative - Negati ve POCT U PROT (test code = 3259) neg Negative - Negative POCT U GLU (test code = 3256) normal Negative - Negati ve POCT U KETONE (test code = 3258) neg Negative - Negative POCT U UROBILI (test code = 3260) normal 0.2-1 POCT U BILI (test code = 3261) neg Negative - Negative POCT U BLD (test code = 3257) neg Negative - Negati ve POCT U COLOR (test code = 3266) yellow POCT U APPEAR (test code = 3267) clear Lab Interpretation (test cod e = 19737-9) Normal [facility] URINALYSIS W SPECIFIC [id number] 14:55:00* Test Item Value Reference Range Interpretation Comme nts POCT U SP GRAV (test code = 3255) 1.015 mg/dl 1.005-1.025 POCT PH U (test code = 3254) 7 mg/dl 5-8 POCT U LEUK EST (test code = 3263) neg Negative - Negative POCT U NIT (test code = 3262) neg Negative - Negati ve POCT U PROT (test code = 3259) neg Negative - Negative POCT U GLU (test code = 3256) normal Negative - Negati ve POCT U KETONE (test code = 3258) neg Negative - Negative POCT U UROBILI (test code = 3260) normal 0.2-1 POCT U BILI (test code = 3261) neg Negative - Negative POCT U BLD (test code = 3257) neg Negative - Negati ve POCT U COLOR (test code = 3266) yellow POCT U APPEAR (test code = 3267) clear Lab Interpretation (test cod e = 73969-1) Normal [facility] URINALYSIS, [id number] 18:24:00 * Test Item Value Reference Range Interpretation Comme nts POCT U SP GRAV (test code = 3255) 1.020 mg/dl 1.005-1.025 POCT PH U (test code = 3254) 6.0 mg/dl 5-8 POCT U LEUK EST (test code = 3263) Negative Negative - Negative POCT U NIT (test code = 3262) Negative Negative - Negative POCT U PROT (test code = 3259) Negative Negative - Negative POCT U GLU (test code = 3256) Negative Negative - Negative POCT U KETONE (test code = 3258) Negative Negative - Negative POCT U UROBILI (test code = 3260) 0.2 mg/dl 0.2-1 POCT U BILI (test code = 3261) Negative Negative - Negative POCT U BLD (test code = 3257) Trace - intact Negative - Negative POCT U COLOR (test code = 3266) Yellow POCT U APPEAR (test code = 3267) Clear Lab Interpretation (test code = 83294-4) Abnormal [facility] URINALYSIS, [id number] 14:47:00 * Test Item Value Reference Range Interpretation Comme nts POCT U SP GRAV (test code = 3255) 1.025 mg/dl 1.005-1.025 POCT PH U (test code = 3254) 5.0 mg/dl 5-8 POCT U LEUK EST (test code = 3263) small Negative - Negative A POCT U NIT (test code = 3262) positive Negative - Negati ve A POCT U PROT (test code = 3259) trace Negative - Negative A POCT U GLU (test code = 3256) negative Negative - Negati ve POCT U KETONE (test code = 3258) trace Negative - Negative A POCT U UROBILI (test code = 3260) 0.2 mg/dl 0.2-1 POCT U BILI (test code = 3261) Negative Negative - Negative POCT U BLD (test code = 3257) Moderate Negative - Negati ve A POCT U COLOR (test code = 3266) Yellow POCT U APPEAR (test code = 3267) Clear Lab Interpretation (test cod e = 51558-9) Abnormal [facility] URINALYSIS, [id number] 14:47:00 * Test Item Value Reference Range Interpretation Comme nts POCT U SP GRAV (test code = 3255) 1.025 mg/dl 1.005-1.025 POCT PH U (test code = 3254) 5.0 mg/dl 5-8 POCT U LEUK EST (test code = 3263) small Negative - Negative A POCT U NIT (test code = 3262) positive Negative - Negati ve A POCT U PROT (test code = 3259) trace Negative - Negative A POCT U GLU (test code = 3256) negative Negative - Negati ve POCT U KETONE (test code = 3258) trace Negative - Negative A POCT U UROBILI (test code = 3260) 0.2 mg/dl 0.2-1 POCT U BILI (test code = 3261) Negative Negative - Negative POCT U BLD (test code = 3257) Moderate Negative - Negati ve A POCT U COLOR (test code = 3266) Yellow POCT U APPEAR (test code = 3267) Clear Lab Interpretation (test cod e = 20145-5) Abnormal [facility] URINALYSIS, [id number] 14:25:00 * Test Item Value Reference Range Interpretation Comme nts POCT U SP GRAV (test code = 3255) 1.015 mg/dl 1.005-1.025 POCT PH U (test code = 3254) 5.5 mg/dl 5-8 POCT U LEUK EST (test code = 3263) trace Negative - Negative POCT U NIT (test code = 3262) negative Negative - Negative POCT U PROT (test code = 3259) negative Negative - Negative POCT U GLU (test code = 3256) normal Negative - Negative POCT U KETONE (test code = 3258) negative Negative - Negative POCT U UROBILI (test code = 3260) 0.2 mg/dl 0.2-1 POCT U BILI (test code = 3261) negative Negative - Negative POCT U BLD (test code = 3257) small Negative - Negative POCT U COLOR (test code = 3266) yellow POCT U APPEAR (test code = 3267) clear JUAN JOSÉ (test code = JUAN JOSÉ) Per order PVR by bladder scan = ?6 ml. [facility] [id number] 14:25:00 * Test Item Value Reference Range Interpretation Comme nts POCT U SP GRAV (test code = 3255) 1.015 mg/dl 1.005-1.025 POCT PH U (test code = 3254) 5.5 mg/dl 5-8 POCT U LEUK EST (test code = 3263) trace Negative - Negative POCT U NIT (test code = 3262) negative Negative - Negative POCT U PROT (test code = 3259) negative Negative - Negative POCT U GLU (test code = 3256) normal Negative - Negative POCT U KETONE (test code = 3258) negative Negative - Negative POCT U UROBILI (test code = 3260) 0.2 mg/dl 0.2-1 POCT U BILI (test code = 3261) negative Negative - Negative POCT U BLD (test code = 3257) small Negative - Negative POCT U COLOR (test code = 3266) yellow POCT U APPEAR (test code = 3267) clear JUAN JOSÉ (test code = JUAN JOSÉ) Per order PVR by bladder scan = ?6 ml. Results reported to provider. [facility], [id number] 13:58:00 * Test Item Value Reference Range Interpretation Comme nts POCT U SP GRAV (test code = 3255) 1.020 mg/dl 1.005-1.025 POCT PH U (test code = 3254) 6.5 mg/dl 5-8 POCT U LEUK EST (test code = 3263) trace Negative - Negative POCT U NIT (test code = 3262) positive Negative - Negati ve POCT U PROT (test code = 3259) negative Negative - Negative POCT U GLU (test code = 3256) negative Negative - Negati ve POCT U KETONE (test code = 3258) negative Negative - Negative POCT U UROBILI (test code = 3260) 0.2 mg/dl 0.2-1 POCT U BILI (test code = 3261) negative Negative - Negative POCT U BLD (test code = 3257) trace-lysed Negative - Negat jean POCT U COLOR (test code = 3266) yellow POCT U APPEAR (test code = 3267) cloudy Lab Interpretation (test cod e = 92969-9) [facility] [id number] 13:58:00 * Test Item Value Reference Range Interpretation Comme nts POCT U SP GRAV (test code = 3255) 1.020 mg/dl 1.005-1.025 POCT PH U (test code = 3254) 6.5 mg/dl 5-8 POCT U LEUK EST (test code = 3263) trace Negative - Negative POCT U NIT (test code = 3262) positive Negative - Negati ve POCT U PROT (test code = 3259) negative Negative - Negative POCT U GLU (test code = 3256) negative Negative - Negati ve POCT U KETONE (test code = 3258) negative Negative - Negative POCT U UROBILI (test code = 3260) 0.2 mg/dl 0.2-1 POCT U BILI (test code = 3261) negative Negative - Negative POCT U BLD (test code = 3257) trace-lysed Negative - Negat jean POCT U COLOR (test code = 3266) yellow POCT U APPEAR (test code = 3267) cloudy Lab Interpretation (test cod e = 84147-3) Normal [facility]. METABOLIC PANEL (76779)2023-05-07 16:50:35* Test Item Value Reference Range Interpretation Comme nts NA (test code = 6683815738) 141 mmol/L 135-145 K (test code = 0878813241) 4.2 mmol/L 3.5-5.0 CL (test code = 1171924662) 101 mmol/L 98-108 CO2 TOTAL (test code = 9798433377) 31 mmol/L 23-31 AGAP (test code = 5743827074) 9 2-16 BUN (test code = 5602936659) 14 mg/dL 7-23 GLUCOSE (test code = 4390868349) 102 mg/dL 70-110 CREATININE (test code = 8189537100) 0.55 mg/dL 0.50-1.04 TOTAL BILI (test code = 9039731138) 1.4 mg/dL 0.1-1.1 H CALCIUM (test code = 8608561278) 9.4 mg/dL 8.6-10.6 T PROTEIN (test code = 6827953828) 7.6 g/dL 6.3-8.2 ALBUMIN (test code = 8034345315) 4.5 g/dL 3.5-5.0 ALK PHOS (test code = 2880784579) 98 U/L 34-122 ALTv (test code = 1742-6) 31 U/L 5-35 AST(SGOT) (test code = 3378080577) 31 U/L 13-40 eGFR (test code = 1304160384) 110.6 mL/min/1.73m2 JUAN JOSÉ (test code = JUAN JOSÉ) Association of Glomerular Filtration Rate (GFR) and Staging of Kidney Disease* + --+ --+ ------+| GFR (mL/min/1.73 m2) ?| With Kidney Damage ?| ?Without Kidney Damage+ --------+ --------+ +| ?>90 ?| ?Stage one ?| ? Normal ?+ ---+ ---+ -------+| ?60-89 ?| ?Stage two ?| ? Decreased GFR ? + --+ --+ ------+| ?30-59 ?| ?Stage three ?| ? Stage three ? + --+ --+ ------+| ?15-29 ?| ?Stage four ? | ? Stage four ?+ ---+ ---+ -------+| ?<15 (or dialysis) ? ?| ?Stage five ? | ? Stage five ?+ ---+ ---+ -------+ *Each stage assumes the associated GFR level has been in effect for at least three months. ?Stages 1 to 5, with or without kidney disease, indicate chronic kidney disease. Notes: Determination of stages one and two (with eGFR >59mL/min/1.73 m2) requires estimation of kidney damage for at least three months as defined by structural or functional abnormalities of the kidney, manifested by either:Pathological abnormalities or Markers of kidney damage (including abnormalities in the composition of the blood or urine or abnormalities in imaging tests). Lab Interpretation (test code = 70575-0) Abnormal [facility] WITH [id number] 16:41:15* Test Item Value Reference Range Interpretation Comme nts WBC (test code = 6690-2) 5.66 See_Comment [Automated [employer]] The system which generated this result transmitted reference range: 4.30 - 11.10 10*3/?L. The reference range was not used to interpret this result as normal/abnormal. RBC (test code = 789-8) 4.51 See_Comment [[employer]ated [employer]] The system which generated this result transmitted reference range: 3.93 - 5.25 10*6/?L. The reference range was not used to interpret this result as normal/abnormal. HGB (test code = 718-7) 13.9 g/dL 11.6-15.0 HCT (test code = 4544-3) 40.7 % 35.7-45.2 MCV (test code = 787-2) 90.2 fL 80.6-95.5 MCH (test code = 785-6) 30.8 pg 25.9-32.8 MCHC (test code = 786-4) 34.2 g/dL 31.6-35.1 RDW-SD (test code = 91999-8) 40.3 fL 39.0-49.9 RDW-CV (test code = 788-0) 12.2 % 12.0-15.5 PLT (test code = 777-3) 222 See_Comment [[employer]] The system which generated this result transmitted reference range: 166 - 358 10*3/?L. The reference range was not used to interpret this result as normal/abnormal. MPV (test code = 56522-1) 11.0 fL 9.5-12.9 NRBC/100 WBC (test code = 0566487219) 0.0 See_Comment [Automated [employer]] The system which generated this result transmitted reference range: 0.0 - 10.0 /100 WBCs. The reference range was not used to interpret this result as normal/abnormal. NRBC x10^3 (test code = 0731251441) See_Comment [Automated me ssage] The system which generated this result transmitted reference range: 10*3/?L. The reference range was not used to interpret this result as normal/abnormal. GRAN MAT (NEUT) % (test code = 770-8) 66.3 % IMM GRAN % (test code = 6821235405) 0.40 % LYMPH % (test code = 736-9) 24.6 % MONO % (test code = 5905-5) 6.4 % EOS % (test code = 713-8) 1.8 % BASO % (test code = 706-2) 0.5 % GRAN MAT x10^3(ANC) (test code = 4230826617) 3.76 10*3/uL 1.88-7.09 IMM GRAN x10^3 (test code = 3020892834) 0.00-0.06 LYMPH x10^3 (test code = 731-0) 1.39 10*3/uL 1.32-3.29 MONO x10^3 (test code = 742-7) 0.36 10*3/uL 0.33-0.92 EOS x10^3 (test code = 711-2) 0.10 10*3/uL 0.03-0.39 BASO x10^3 (test code = 704-7) 0.03 10*3/uL 0.01-0.07 [facility] Notes Date/Time Note Provider Source 2024-12-28 13:12:22 Faxing completed form now. With attached records. [facility] 2024-12-27 22:25:25 Last office note updated. [facility] 2024-12-26 09:07:58 Dental Clearance form received. Placed in MDs inbox folder for review. [facility] 2024-12-25 16:11:37 Jailyn Walls is a 69 year old female Pt came in and brought a form. Pt states that she needs it signed before this Wednesday. Please advise [facility] Federica Quevedo [facility] 2024-09-11 11:30:00 Addended by: LILIAM JONES on: 09/11/2024 04:52 PM Modules accepted: Orders [facility] 2024-09-11 11:30:00 Addended by: HELIO VALENTIN MD on: 09/14/2024 03:00 PM Modules accepted: Orders [facility] 2024-08-08 13:19:12 Patient notified of results/recommendations, understanding was verbalized via teach back. [facility] Lian Villatoro RN [facility] 2024-08-08 13:04:56 Attempted to contact patient with no answer, Voicemail left at this time with clinic phone number and instructed patient to return call. [facility] 2024-08-07 15:32:19 Images from the original note were not included. Attempted to contact patient with no answer, Voicemail left at this time with clinic phone number and instructed patient to return call. [facility] 2024-07-31 14:00:00 Addended by: EHLIO VALENTIN MD on: 08/04/2024 05:10 PM Modules accepted: Orders [facility] 2024-04-03 21:55:54 Pt given printed and verbal discharge instructions regarding dysuria, epigastric abdominal pain, nausea and vomiting. Prescriptions provided cefpodoxime 100 mg tablet ondansetron 4 mg disintegrating tablet Discussed antibiotic therapy and to take until all completed unless adverse reaction occurs - if occurs, discontinue medication and follow up with pcp/seek medical attention Pt verbalized understanding of instructions, pt awake alert oriented, resp reg unlabored, skin w/d, color appropriate for race, moves all ext well,pt encouraged to follow up with pcp Advised to seek medical attention for new/prolonged/worsening of symptoms No adverse reaction to meds given in ER noted upon discharge PIV d'cd, dressing to site, catheter in tact. Awake, alert oriented, resp reg unlabored, skin w/d, pt leaving amb with steady gait, in no apparent distress Yolette Piper RN [facility] 2024-04-03 20:16:35 Pt arrived ambulatory without assist. Pt states "I had a problem with my urine last week. I went to the clinic last week they gave me medication for the urine infection. I have been taking the antibiotics but I am stil having fever. I also am having a burning in my stomach and my back hurts." Preeti Venegas RN [facility] 2024-04-03 20:13:00 Associated Order(s): EKG-12 Lead ROUTINE ONCE Pre-Procedure Diagnose(s): Dysuria Post-Procedure Diagnose(s): Dysuria [facility] Emergency Department Note Patient Name: Jailyn Walls Date of : 1955 69 year old female Treatment Room: TX6/TX6 Primary Care Physician: Evy Prather Patient Escorted by: Self [9] Mode of Arrival: Personal means [1] EMS Treatment Prior to ED Arrival: CONGRESSIONAL ASSISTANT treatment: Medication (comment) CONGRESSIONAL ASSISTANT treatment comments: tylenol 325mg about 2 hours ago Travel and Exposure Screening: Symptoms Does patient have any of these symptoms?: (not recorded) Exposure Screening Has patient had contact with someone with a communicable disease in the last month?: (not recorded) Diseases exposed to:: (not recorded) Is Patient ?: (not recorded) Exposure Date: (not recorded) Chief Complaint: Chief Complaint Patient presents with Epigastric Pain Fever Headache History of Present Illness: The patient presents from home for evaluation for episodes of epigastric pain that have been coming and going since yesterday evening. She reports her last episode was over an hour ago and lasted for several seconds and went away on its own. No association of her episodes with exertion or deep breathing. No cough or URI symptoms. She does complain of subjective fevers up to 99 degrees at home. She does have some dysuria and was diagnosed with UTI on Wednesday when she was started on antibiotics. She admits to compliance with her antibiotics and reports the dysuria is improving. She also complains of nausea and vomiting today. She reports history of diabetes as well as high blood pressure. She does not smoke. No medications taken for her symptoms today. Here for evaluation. 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 Alcohol Use No. Drug Use No. Sexual Activity Sexually active; Partners: Male. Past Surgical History: Past Surgical History: Procedure Laterality Date CHOLECYSTECTOMY 2002 OTHER left breast excise and biopsy TUBAL LIGATION 1986 Review of Systems: Review of Systems Constitutional: Positive for fever (subjective). Respiratory: Negative for cough and shortness of breath. Cardiovascular: Negative for chest pain. Gastrointestinal: Positive for abdominal pain, nausea and vomiting. Genitourinary: Positive for dysuria. Musculoskeletal: Negative for arthralgias, neck pain and neck stiffness. Skin: Negative for wound. Neurological: Negative for dizziness. Psychiatric/Behavioral: Negative for agitation. Endocrine: Negative for goiter. Physical Exam: ED Triage Vitals [04/03/242019] Weight 66.7 kg (147 lb) Actual or estimated Estimated by patient/family report Height 1.524 m (5') BP (!) 143/70 Pulse 95 Resp 18 Temp 37.5 ?C (99.5 ?F) Temp source Oral SpO2 98 % Measured on Room air Physical Exam Vitals and nursing note reviewed. Constitutional: Appearance: Normal appearance. She is normal weight. HENT: Head: Normocephalic and atraumatic. Mouth/Throat: Mouth: Mucous membranes are dry. Cardiovascular: Rate and Rhythm: Normal rate and regular rhythm. Pulses: Normal pulses. Pulmonary: Effort: Pulmonary effort is normal. No respiratory distress. Abdominal: General: There is no distension. Palpations: Abdomen is soft. There is no mass. Tenderness: There is no abdominal tenderness. There is no guarding. Hernia: No hernia is present. Musculoskeletal: General: Normal range of motion. Cervical back: Normal range of motion and neck supple. Skin: General: Skin is warm and dry. Neurological: General: No focal deficit present. Mental Status: She is alert and oriented to person, place, and time. Radiology: No orders to display Lab Results: Lab Results URINALYSIS - Abnormal Result Value Ref Range APPEARANCE Cloudy (*) Clear COLOR Joycelyn (*) Yellow PH 7.0 4.8 - 8.0 SP GRAVITY 1.011 1.003 - 1.030 GLU U QUAL Normal Normal BLOOD 1+ (*) Negative KETONES Negative Negative PROTEIN 30 mg/dL (*) Negative UROBILIN 4.0 mg/dL (*) Normal BILIRUBIN Negative Negative NITRITE Positive (*) Negative LEUK MARIA M 500/uL (*) Negative RBC/HPF 12 (*) 0 - 3 HPF WBC/HPF >182 (*) 0 - 5 HPF BACTERIA Many (*) Negative MUCOUS Slight (*) Negative LPF SQ EPITH 4 HPF WBC CLUMPS 4 (*) <=1 HPF YEAST BUD 12 (*) <=1 HPF CBC WITH DIFF - Abnormal WBC 8.16 4.30 - 11.10 10*3/?L RBC 4.14 3.93 - 5.25 10*6/?L HGB 12.7 11.6 - 15.0 g/dL HCT 37.4 35.7 - 45.2 % MCV 90.3 80.6 - 95.5 fL MCH 30.7 25.9 - 32.8 pg MCHC 34.0 31.6 - 35.1 g/dL RDW-SD 41.7 39.0 - 49.9 fL RDW-CV 12.6 12.0 - 15.5 % PLT 197 166 - 358 10*3/?L MPV 11.0 9.5 - 12.9 fL NRBC/100 WBC 0.0 0.0 - 10.0 /100 WBCs NRBC x10 3 <0.01 10*3/?L GRAN MAT (NEUT) % 81.8 % IMM GRAN % 0.40 % LYMPH % 10.7 % MONO % 6.4 % EOS % 0.5 % BASO % 0.2 % GRAN MAT x10 3 (ANC) 6.68 1.88 - 7.09 10*3/uL IMM GRAN x10 3 0.03 0.00 - 0.06 10*3/uL LYMPH x10 3 0.87 (*) 1.32 - 3.29 10*3/uL MONO x10 3 0.52 0.33 - 0.92 10*3/uL EOS x10 3 0.04 0.03 - 0.39 10*3/uL BASO x10 3 <0.03 0.01 - 0.07 10*3/uL COMP. METABOLIC PANEL (51563) - Abnormal NA 134 (*) 135 - 145 mmol/L K 4.2 3.5 - 5.0 mmol/L CL 100 98 - 108 mmol/L CO2 TOTAL 29 23 - 31 mmol/L AGAP 5 2 - 16 BUN 13 7 - 23 mg/dL GLUCOSE 180 (*) 70 - 110 mg/dL CREATININE 0.73 0.50 - 1.04 mg/dL TOTAL BILI 1.4 (*) 0.1 - 1.1 mg/dL CALCIUM 9.1 8.6 - 10.6 mg/dL T PROTEIN 7.3 6.3 - 8.2 g/dL ALBUMIN 4.1 3.5 - 5.0 g/dL ALK PHOS 70 34 - 122 U/L ALTv 19 5 - 35 U/L AST(SGOT) 21 13 - 40 U/L eGFR 90.3 mL/min/1.73m2 LIPASE - Normal LIPASE 54 0 - 220 U/L TROPONIN I EKG: If EKG completed, see Procedure Note. Orders and Treatments: Orders Placed This Encounter Procedures URINALYSIS CBC WITH DIFF COMP. METABOLIC PANEL (22259) LIPASE TROPONIN I Orders Placed This Encounter Medications cefTRIAXone (ROCEPHIN) 1,000 mg in NaCl 0.9% (NS) 100 mL MINI-BAG cefpodoxime 100 mg tablet ondansetron 4 mg disintegrating tablet First Provider Eval: ED Events Date/Time Event User Comments 04/03/242023 Medical Screening Begins LILLIANA COYNE DO -- 04/03/242023 First Provider Evaluation LILLIANA COYNE DO -- ED COURSE Diagnosis/Impression as of 04/03/242147 Dysuria Epigastric abdominal pain Nausea and vomiting, unspecified vomiting type Procedures: EKG-12 Lead ROUTINE ONCE Date/Time: 04/03/2024 9:29 PM Performed by: Lilliana Coyne DO Authorized by: Lilliana Coyne DO ECG interpreted by ED Physician in the absence of a business process coordinator: yes Interpretation: Interpretation: normal Rate: ECG rate: 86 ECG rate assessment: normal Rhythm: Rhythm: sinus rhythm Ectopy: Ectopy: none QRS: QRS axis: Left QRS intervals: Normal QRS conduction: normal ST segments: ST segments: Normal T waves: T waves: normal Q waves: Abnormal Q-waves: not present MDM: Medical Decision Making The patient presents from home for evaluation for dysuria since Wednesday. She was seen at a clinic on Wednesday and diagnosed with UTI and prescribed antibiotics. She admits to compliance with her antibiotics and reports her dysuria is improving. She also complains of nausea and vomiting since yesterday as well as episodes of epigastric/chest pain that been occurring since yesterday. She reports her last episode was about an hour prior to arrival and lasted several seconds and self resolved. Fevers up to 99 degrees at home. No cough or URI symptoms. She does have a history of diabetes and high blood pressure. She does not smoke. Vital signs are stable in ER. Her abdomen is soft and nontender on examination. She has no CVA tenderness bilaterally. The patient is low risk for ACS and her presentation is atypical for this. Will check laboratory studies as well as urinalysis. Anticipate discharge home later. 2147 - the patient is doing well here in the ER. Her laboratory studies unremarkable. Her urinalysis shows no infection. She was given a dose of Rocephin here in the ER. Will discharge patient home in stable condition with a prescription for Vantin as well as Zofran ODT. Advised the patient to stop taking the Bactrim. PCP follow-up in 1 week. Problems Addressed: Dysuria: acute illness or injury Epigastric abdominal pain: acute illness or injury Nausea and vomiting, unspecified vomiting type: acute illness or injury Amount and/or Complexity of Data Reviewed Labs: ordered. Decision-making details documented in ED Course. ECG/medicine tests: ordered and independent interpretation performed. Decision-making details documented in ED Course. Risk Prescription drug management. Flowsheet Documentation: Scoring Tools: No data recorded Disposition/Condition: ED Disposition ED Disposition Disch - Home Condition Stable Comment -- Discharge Medications: Patient's Medications START taking these medications CEFPODOXIME 100 MG TABLET Take 1 tablet by mouth 2 (two) times daily for 7 days. ONDANSETRON 4 MG DISINTEGRATING TABLET Take 1 tablet by mouth every 8 (eight) hours as needed for Nausea and Vomiting (N/V). CONTINUE taking these medications which have NOT CHANGED ALENDRONATE 70 MG TABLET Take 1 tablet by mouth weekly. ATORVASTATIN 80 MG TABLET TAKE 1 TABLET BY MOUTH AT BEDTIME ESTRADIOL 0.01 % (0.1 MG/GRAM) VAGINAL CREAM Insert 2 g into vagina weekly. LANSOPRAZOLE (PREVACID) 15 MG CAPSULE Take 1 capsule by mouth daily. LOPERAMIDE 2 MG CAPSULE Take 1 capsule by mouth 3 (three) times daily as needed for Diarrhea. METFORMIN ER 500 MG 24 HR TABLET Take 1 tablet by mouth daily. MIRABEGRON (MYRBETRIQ) 25 MG TABLET Take 1 tablet by mouth daily. OXYBUTYNIN 10 MG 24 HR TABLET Take 1 tablet by mouth daily. QUETIAPINE 25 MG TABLET Take 1 tablet by mouth at bedtime. START taking Modified Medications as Prescribed No medications on file STOP taking these medications BENZONATATE 100 MG CAPSULE Take 1 capsule by mouth 3 (three) times daily as needed for Cough. BROMPHENIRAMINE-PSEUDOEPHEDR INE-DM (BROMFED DM) 2-30-10 MG/5 ML SYRUP Take 5 mL by mouth 4 (four) times daily as needed for Cold symptoms. HYOSCYAMINE SULFATE (LEVSIN/SL) 0.[address] 1 tablet under the tongue every 6 (six) hours as needed (Abdominal pain or cramping). MELATONIN 3 MG TABLET Take 1 tablet by mouth at bedtime as needed for Insomnia. NITROFURANTOIN&NIT. MACROCRYST (MACROBID) 100 MG CAPSULE Take 1 capsule by mouth at bedtime. To prevent utis ONDANSETRON 4 MG DISINTEGRATING TABLET Take 1 tablet by mouth every 8 (eight) hours as needed for Nausea and Vomiting (N/V). ORAL ELECTROLYTES (PEDIALYTE ADVANCED CARE) SOLUTION Take 500 mL by mouth every 6 (six) hours. POLYETHYLENE GLYCOL 3350 17 GRAM POWDER Take 1 Packet by mouth daily. SACCHAROMYCES BOULARDII (FLORASTOR) 250 MG CAPSULE Take 1 capsule by mouth 2 (two) times daily. Follow-up: Electronically signed by: Lilliana Coyne DO [id number] [facility] 2024-03-14 13:04:29 Images from the original note were not included. 3rd attempt to call patient using a microsoft dynamics ax consultant. Will send patient a letter. Arabella Locke MD 03/11/2024 6:04 PM CDT Back to Top A1c mildly elevated 6.4. Recommend follow-up with PCP's office for better blood sugar control. LDL at goal. Triglycerides stable. CMP within acceptable stable limits. TSH stable. NT proBNP normal. Magnesium normal. CBC within acceptable stable limits. Continue with the current cardiac medications without any further changes. Follow-up as planned. Arabella Locke MD P Cardiology Nurse Echo with in acceptable limits. Preserved LVEF. No significant valve diease noted No new changes compared to previous echocardiogram in 2019. Follow-up as planned. Recommend to get fasting labs done. Orders placed. Danielle Ochoa RN [facility] 2024-03-13 11:22:37 Images from the original note were not included. Attempted to contact patient using a microsoft dynamics ax consultant. Left message advising patient to return call to clinic. Results of labs also now available. Arabella Locke MD 03/11/2024 6:04 PM CDT Back to Top A1c mildly elevated 6.4. Recommend follow-up with PCP's office for better blood sugar control. LDL at goal. Triglycerides stable. CMP within acceptable stable limits. TSH stable. NT proBNP normal. Magnesium normal. CBC within acceptable stable limits. Continue with the current cardiac medications without any further changes. Follow-up as planned. Arabella Locke MD P Cardiology Nurse Echo with in acceptable limits. Preserved LVEF. No significant valve diease noted No new changes compared to previous echocardiogram in 2019. Follow-up as planned. Recommend to get fasting labs done. Orders placed. [facility] 2024-03-13 10:43:49 Images from the original note were not included. Notified patient per Dr Locke: Arabella Locke MD P Cardiology Nurse A1c mildly elevated 6.4. Recommend follow-up with PCP's office for better blood sugar control. LDL at goal. Triglycerides stable. CMP within acceptable stable limits. TSH stable. NT proBNP normal. Magnesium normal. CBC within acceptable stable limits. Continue with the current cardiac medications without any further changes. Follow-up as planned. Patient verbal understanding. Evy Hidalgo MA [facility] 2024-03-10 11:41:18 Jailyn Walls is a 69 year old female Pt is returning missed call for clarification of test results. Please advise. Shyla Salas [facility] 2024-03-10 08:00:00 Images from the original note were not included. Venipuncture collection performed by clean technique on the left anticubitus. Total of 1 attempts were made. Slight pressure and a bandage/dressing were applied to the site(s). The patient experienced no complications. The following specimens were processed according to instructions and sent to [facility] laboratories per lab order on 03/10/2024 : LT BLUE SST 1 RED LAV 2 PPT DK GREEN (LiHep) DK GREEN (SodH) AGUILAR DK BLUE (K2) DK BLUE (S) ACD Blood Culture NIPT/NTD T [facility] 2024-03-09 14:02:39 Images from the original note were not included. Attempted to contact patient to discuss results no answer I left a voice message to call back. Arabella Locke MD P Cardiology Nurse Echo with in acceptable limits. Preserved LVEF. No significant valve diease noted No new changes compared to previous echocardiogram in 2019. Follow-up as planned. Recommend to get fasting labs done. Orders placed. T Evy Hidalgo MA [facility] 2024-03-08 14:30:00 Images from the original note were not included. Patient has been identified by and name and was provided with cup, antiseptic towelette, and clean catch instructions. 1 urine specimen(s) sent. Unpreserved Urine Culture 1 Aptima tube Other urine Pt only wanting to get urine culture done. T [facility] 2024-03-08 13:00:00 Echo with in acceptable limits. Preserved LVEF. No significant valve diease noted No new changes compared to previous echocardiogram in 2019. Follow-up as planned. Recommend to get fasting labs done. Orders placed. T [facility] 2023-12-26 22:23:31 Pt given printed and verbal discharge instructions regarding urinary tract infection with hematuria and generalized abdominal pain, encouraged hydration, 1 Prescriptions sent. Discussed antibiotic therapy and to take until all completed unless adverse reaction occurs - if occurs, discontinue medication and follow up with pcp/seek medical attention Pt verbalized understanding of instructions, pt awake alert oriented, resp reg unlabored, skin w/d, color appropriate for race, moves all ext well,pt encouraged to follow up with pcp and urology. Advised to seek medical attention for new/prolonged/worsening of symptoms, Symptoms improved. No adverse reaction to meds given in ER noted upon discharge PIV d'cd, dressing to site, catheter in tact. Awake, alert oriented, resp reg unlabored, skin w/d, pt leaving amb with steady gait, in no apparent distress, Lester RN [facility] 2023-12-26 19:21:13 Pt arrived ambulatory with complaints of stomach cramping and diarrhea since last Wednesday. Pt was seen in ED on 12/20 and prescribed loperamide and hyoscyamine which she says is not helping. No vomiting. Last BM today Rose RN [facility] 2023-12-20 12:18:08 PT D/C home. GCS15, VS stable. Given D/C paperwork. Pt ambulatory at time of discharge. Pt educated on med usage, follow up care, s/s worsening condition, need for hydration. Pt verbalized understanding. Pt ambulated from ED in NAD with family Hunter RN [facility] 2023-12-20 10:08:07 Patient to ED for diarrhea and nausea that started yesterday and has stomach cramping. Also reports of chills and body aches. Dobbs RN [facility] 2023-12-20 09:56:00 [facility] Emergency Department Note Patient Name: Bia Walls Date of : 1955 68 year old female Treatment Room: TX7/TX7 Primary Care Physician: Evy Prather Patient Escorted by: Self [9] Mode of Arrival: Personal means [1] EMS Treatment Prior to ED Arrival: Travel and Exposure Screening: Symptoms Does patient have any of these symptoms?: (not recorded) Exposure Screening Has patient had contact with someone with a communicable disease in the last month?: (not recorded) Diseases exposed to:: (not recorded) Is Patient ?: (not recorded) Exposure Date: (not recorded) Chief Complaint: Chief Complaint Patient presents with Diarrhea CRAMPS History of Present Illness: History 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: 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: No Diarrhea Quality: Copious and watery Severity: Moderate Onset quality: Sudden Number of episodes: Several Duration: 2 days Timing: Intermittent Progression: Unchanged Relieved by: None tried Worsened by: Nothing Ineffective treatments: None tried Associated symptoms: chills and myalgias Associated symptoms: no abdominal pain, no arthralgias, no diaphoresis, no fever, no headaches and no vomiting Associated symptoms comment: Nausea Risk factors: no recent antibiotic use, no sick contacts, no suspicious food intake and no travel to endemic areas Past Medical History/Immunizations: Past Medical History: Diagnosis Date Diabetes mellitus 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 Alcohol Use No. Drug Use No. Sexual Activity Sexually active; Partners: Male. Past Surgical History: Past Surgical History: Procedure Laterality Date CHOLECYSTECTOMY 2002 OTHER left breast excise and biopsy TUBAL LIGATION 1986 Review of Systems: Review of Systems Constitutional: Positive for chills and fatigue. Negative for activity change, appetite change, diaphoresis and fever. HENT: Negative for congestion, ear discharge, ear pain, rhinorrhea, sore throat and trouble swallowing. Eyes: Negative for photophobia, pain, discharge and redness. Respiratory: Negative for cough, chest tightness, shortness of breath and wheezing. Cardiovascular: Negative for chest pain, palpitations and leg swelling. Gastrointestinal: Positive for diarrhea and nausea. Negative for abdominal distention, abdominal pain, blood in stool, constipation and vomiting. Genitourinary: Negative for dysuria, urgency, polyuria, frequency, hematuria and flank pain. Musculoskeletal: Positive for myalgias. Negative for arthralgias, joint swelling and neck stiffness. Skin: Negative for color change, rash and wound. Neurological: Positive for weakness. Negative for dizziness, seizures, syncope, facial asymmetry, light-headedness, numbness and headaches. Psychiatric/Behavioral: Negative for agitation, confusion, hallucinations and self-injury. The patient is not nervous/anxious. Hematological: Negative for adenopathy and cold intolerance. Does not bruise/bleed easily. Endocrine: Negative for cold intolerance, polydipsia and polyuria. Physical Exam: ED Triage Vitals [12/20/23 1008] Weight 72.6 kg (160 lb) Actual or estimated Height 1.524 m (5') BP 122/90 Pulse 84 Resp 18 Temp 36.8 ?C (98.3 ?F) Temp src SpO2 99 % Measured on Physical Exam Vitals and nursing note reviewed. Constitutional: General: She is awake. She is not in acute distress. Appearance: She is well-developed, well-groomed and overweight. She is not ill-appearing or diaphoretic. HENT: Head: Normocephalic and atraumatic. Right Ear: External ear normal. Left Ear: External ear normal. Nose: Nose normal. Mouth/Throat: Mouth: Mucous membranes are dry. Pharynx: No oropharyngeal exudate. Eyes: General: No scleral icterus. Right eye: No discharge. Left eye: No discharge. Conjunctiva/sclera: Conjunctivae normal. Pupils: Pupils are equal, round, and reactive to light. Neck: Thyroid: No thyromegaly. Vascular: No JVD. Trachea: No tracheal deviation. Cardiovascular: Rate and Rhythm: Normal rate and regular rhythm. Heart sounds: Normal heart sounds. No murmur heard. No friction rub. No gallop. Pulmonary: Effort: Pulmonary effort is normal. No respiratory distress. Breath sounds: Normal breath sounds. No stridor. No wheezing or rales. Chest: Chest wall: No tenderness. Abdominal: General: Abdomen is flat. Bowel sounds are normal. There is no distension. Palpations: Abdomen is soft. There is no shifting dullness, fluid wave, hepatomegaly, splenomegaly, mass or pulsatile mass. Tenderness: There is no abdominal tenderness. There is no right CVA tenderness, left CVA tenderness, guarding or rebound. Negative signs include Acuna's sign and McBurney's sign. Musculoskeletal: General: No tenderness or deformity. Normal range of motion. Cervical back: Normal range of motion and neck supple. Lymphadenopathy: Cervical: No cervical adenopathy. Skin: General: Skin is warm and dry. Coloration: Skin is not pale. Findings: No erythema or rash. Neurological: Mental Status: She is alert and oriented to person, place, and time. Cranial Nerves: No cranial nerve deficit. Motor: No abnormal muscle tone. Coordination: Coordination normal. Deep Tendon Reflexes: Reflexes are normal and symmetric. Reflexes normal. Psychiatric: Behavior: Behavior normal. Behavior is cooperative. Thought Content: Thought content normal. Judgment: Judgment normal. Radiology: No orders to display Lab Results: Lab Results CBC WITH DIFF - Abnormal Result Value Ref Range WBC 4.01 (*) 4.30 - 11.10 10*3/?L RBC 4.51 3.93 - 5.25 10*6/?L HGB 13.8 11.6 - 15.0 g/dL HCT 41.2 35.7 - 45.2 % MCV 91.4 80.6 - 95.5 fL MCH 30.6 25.9 - 32.8 pg MCHC 33.5 31.6 - 35.1 g/dL RDW-SD 41.5 39.0 - 49.9 fL RDW-CV 12.5 12.0 - 15.5 % PLT 233 166 - 358 10*3/?L MPV 10.6 9.5 - 12.9 fL NRBC/100 WBC 0.0 0.0 - 10.0 /100 WBCs NRBC x10 3 <0.01 10*3/?L GRAN MAT (NEUT) % 75.2 % IMM GRAN % 0.20 % LYMPH % 16.7 % MONO % 6.5 % EOS % 1.2 % BASO % 0.2 % GRAN MAT x10 3 (ANC) 3.01 1.88 - 7.09 10*3/uL IMM GRAN x10 3 <0.03 0.00 - 0.06 10*3/uL LYMPH x10 3 0.67 (*) 1.32 - 3.29 10*3/uL MONO x10 3 0.26 (*) 0.33 - 0.92 10*3/uL EOS x10 3 0.05 0.03 - 0.39 10*3/uL BASO x10 3 <0.03 0.01 - 0.07 10*3/uL COMP. METABOLIC PANEL (76810) - Abnormal NA 137 135 - 145 mmol/L K 4.5 3.5 - 5.0 mmol/L CL 108 98 - 108 mmol/L CO2 TOTAL 22 (*) 23 - 31 mmol/L AGAP 7 2 - 16 BUN 19 7 - 23 mg/dL GLUCOSE 121 (*) 70 - 110 mg/dL CREATININE 0.65 0.50 - 1.04 mg/dL TOTAL BILI 1.7 (*) 0.1 - 1.1 mg/dL CALCIUM 9.1 8.6 - 10.6 mg/dL T PROTEIN 7.7 6.3 - 8.2 g/dL ALBUMIN 4.3 3.5 - 5.0 g/dL ALK PHOS 69 34 - 122 U/L ALTv 29 5 - 35 U/L AST(SGOT) 31 13 - 40 U/L eGFR 97.2 mL/min/1.73m2 COVID-19 (ID NOW RAPID TESTING) - Normal SARS-CoV-2 Rapid ID NOW Not Detected Not Detected URINALYSIS EKG: If EKG completed, see Procedure Note. Orders and Treatments: Orders Placed This Encounter Procedures Cbc with Diff Comp. Metabolic Panel (06263) COVID-19 (ID NOW TESTING) Urinalysis Lab Only COVID Interpretation Orders Placed This Encounter Medications NaCl 0.9% (NS) bolus infusion 1,000 mL hyoscyamine sulfate (LEVSIN/SL) sublingual tablet 0.25 mg ketorolac (TORADOL) injection 15 mg ondansetron (ZOFRAN (PF)) injection 4 mg loperamide (IMODIUM A-D) capsule 4 mg lactobacillus acidophilus tablet 1 mg Oral Electrolytes (PEDIALYTE ADVANCED CARE) solution loperamide 2 mg capsule Saccharomyces boulardii (FLORASTOR) 250 mg capsule hyoscyamine sulfate (LEVSIN/SL) 0.125 mg sublingual tablet ondansetron 4 mg disintegrating tablet First Provider Eval: ED Events Date/Time Event User Comments 12/20/23 1017 Medical Screening Begins CHRISTOPHER PATEL MD -- 12/20/23 1017 First Provider Evaluation CHRISTOPHER PATEL MD -- ED COURSE Patient's condition improved with the treatment provided in the ED, will DC Home with adequate medication to address her symptoms. Diagnosis/Impression as of 12/20/23 1209 Gastroenteritis and colitis, viral Procedures: Procedures MDM: Medical Decision Making Problems Addressed: Gastroenteritis and colitis, viral: complicated acute illness or injury with systemic symptoms Amount and/or Complexity of Data Reviewed External Data Reviewed: labs and notes. Details: From previous visits reviewed and compared with current data Labs: ordered. Decision-making details documented in ED Course. Risk OTC drugs. Prescription drug management. Flowsheet Documentation: Scoring Tools: No data recorded Disposition/Condition: ED Disposition ED Disposition Disch - Home Condition Stable Comment -- Discharge Medications: Patient's Medications START taking these medications HYOSCYAMINE SULFATE (LEVSIN/SL) 0.[address] 1 tablet under the tongue every 6 (six) hours as needed (Abdominal pain or cramping). LOPERAMIDE 2 MG CAPSULE Take 1 capsule by mouth 3 (three) times daily as needed for Diarrhea. ONDANSETRON 4 MG DISINTEGRATING TABLET Take 1 tablet by mouth every 8 (eight) hours as needed for Nausea and Vomiting (N/V). ORAL ELECTROLYTES (PEDIALYTE ADVANCED CARE) SOLUTION Take 500 mL by mouth every 6 (six) hours. SACCHAROMYCES BOULARDII (FLORASTOR) 250 MG CAPSULE Take 1 capsule by mouth 2 (two) times daily. CONTINUE taking these medications which have NOT CHANGED ATORVASTATIN 80 MG TABLET TAKE 1 TABLET BY MOUTH AT BEDTIME BENZONATATE 100 MG CAPSULE Take 1 capsule by mouth 3 (three) times daily as needed for Cough. BROMPHENIRAMINE-PSEUDOEPHEDR INE-DM (BROMFED DM) 2-30-10 MG/5 ML SYRUP Take 5 mL by mouth 4 (four) times daily as needed for Cold symptoms. ESTRADIOL 0.01 % (0.1 MG/GRAM) VAGINAL CREAM Insert 2 g into vagina weekly. LANSOPRAZOLE (PREVACID) 15 MG CAPSULE Take 1 capsule by mouth daily. MELATONIN 3 MG TABLET Take 1 tablet by mouth at bedtime as needed for Insomnia. METFORMIN ER 500 MG 24 HR TABLET Take 1 tablet by mouth daily. MIRABEGRON (MYRBETRIQ) 25 MG TABLET Take 1 tablet by mouth daily. OXYBUTYNIN 10 MG 24 HR TABLET Take 1 tablet by mouth daily. POLYETHYLENE GLYCOL 3350 17 GRAM POWDER Take 1 Packet by mouth daily. SULFAMETHOXAZOLE-TRIMETHOPRI M (BACTRIM DS) 800-160 MG PER TABLET Take 1 tablet by mouth 2 (two) times daily for 7 days. START taking Modified Medications as Prescribed No medications on file STOP taking these medications No medications on file Follow-up: Electronically signed by: Christopher Patel MD 12/20/23 1209 S REPRESENTATIVE C[employer] REGISTERS [facility] 2023-12-14 13:59:33 Patient notified of results/recommendations, understanding was verbalized via teach back. S REPRESENTATIVE [employer] REGISTERS Lian Villatoro RN [facility] 2023-12-14 13:51:50 She needs to stop the ceftin and start the bactrim S REPRESENTATIVE [employer] REGISTERS [facility] 2023-12-14 13:48:09 Patient notified of results/recommendations, understanding was verbalized via teach back. Patient states she is currently taking cefuroxime for UTI will route to provider for recommendations. Villatoro RN [facility] 2023-12-13 15:07:26 Images from the original note were not included. Result Notes Lian Villatoro RN 12/13/2023 3:07 PM SALES REPRESENTATIVE [employer] REGISTERS Back to Top Telephone encounter created. DAVID Shi 12/13/2023 10:07 AM SALES REPRESENTATIVE [employer]ISTERS Urinary tract infection results are positive for infection. Abxt have been sent to the pharmacy. Bactrim DS Patient Communication Attempted to contact patient with no answer, Voicemail left at this time with clinic phone number and instructed patient to return call. S REPRESENTATIVE [employer] REGISTERS [facility] 2023-07-20 10:00:00 Addended by: HELIO VALENTIN MD on: 07/23/2023 03:29 PM Modules accepted: Orders [facility] 2023-07-02 11:00:00 Addended by: KAYLYNN NGUYEN RN on: 07/02/2023 01:35 PM Modules accepted: Orders [facility] 2023-06-22 11:49:03 Formatting of this n ote might be different from the original. Duplicate encounter. Patient results were discussed same day in separate encounter. BIANCA SAEZ RN 06/22/2023 11:49 AM Bianca Saez RN [facility] 2023-06-15 08:31:29 Formatting of this n ote might be different from the original. Spoke with patient, and Name verified, patient verbalizes and understand results. Justyna Bajwa MA [facility] 2023-06-14 11:20:19 Formatting of this n ote is different from the original. Images from the original note were not included. Result Care Coordination Result Notes Justyna Bajwa MA 06/11/2023 10:02 AM CDT Back to Top Attempted to contact patient no answer, LMTCB DAVID Shi 06/11/2023 8:55 AM CDT UC is positive for infection. Antibiotics will be sent to the pharmacy. Please be sure to complete them. ED precautions DAVID Shi 06/08/2023 5:10 PM CDT Micro UA within normal limits Attempted to contact patient with no answer, Voicemail left at this time with clinic phone number and instructed patient to return call. Lian Villatoro RN [facility] 2023-06-11 14:39:39 Formatting of this n ote might be different from the original. Patient returning call to discuss lab results. Ana Delgado [facility] 2023-06-11 10:14:38 Formatting of this n ote might be different from the original. Pt is returning nurse call on ua Ashley Garg [facility] 2023-06-11 08:58:02 Formatting of this n ote might be different from the original. Antibiotics sent to the pharmacy [facility] 2023-06-08 17:52:38 Formatting of this n ote might be different from the original. Images from the original note were not included. Attempted to contact patient. Patient did not answer. Left voicemail for patient to return call to clinic. Mary Quintero FNP [facility] Spec Nurse Micro UA within normal limits NT Kateryna Pryor MA [facility]
[2025-01-30] MEDS ORDERED: NA CHLORIDE 0.9% 1,000 ML ONE (01:04)
[2025-01-30 01:13] LABS: Absolute Eosinophils 0.2 K/uL (0-0.5); Absolute Lymphocytes (CBC) 1.7 K/uL (0.7-4.9); Absolute Monocytes 0.4 K/uL (0.1-1.3); Basophils % 0.6 % (0-1.3); Eosinophils % 3.2 % (0-4.4); Hematocrit 34.9 % (36.0-45.0); Hemoglobin 12.2 g/dL (12.0-15.0); Lymphocytes % 31.4 % (15.3-44.8); MCH 31.6 pg (27.0-35.0); MCV 90.2 fL (80-100); MPV 9.5 fL (7.6-11.3); Monocytes % 8.2 % (3.3-12.3); Neutrophils % 56.6 % (41.7-73.7); Nucleated Red Blood Cells % 0.1 % (0-0); Platelets 187 thou/uL (152-406); RBC Red Blood Cell Count 3.87 M/uL (3.86-4.86); Red Cell Distribution Width 13.3 % (12.1-15.2)
[2025-01-30 01:15] LABS: Specific Gravity 1.023 (1.005-1.030); Sqamous Epithelial <5 /HPF (None Seen); Urine Bacteria None Seen /HPF (<20); Urine Bilirubin NEGATIVE (Negative); Urine Blood Trace (Negative); Urine Clarity Clear (Clear); Urine Color Yellow (Yellow); Urine Culture Reflex Order NOT NEEDED; Urine Glucose NEGATIVE (Negative); Urine Ketones NEGATIVE (Negative); Urine Microscopic Reflex YN ORDER UMIC; Urine Nitrite NEGATIVE (Negative); Urine Protein NEGATIVE (Negative); Urine Urobilinogen Normal (Normal); Urine WBC <5 /HPF (<5)
[2025-01-30 01:28] LABS: Albumin 3.5 g/dL (3.4-5.0); Albumin/Globulin Ratio 1.2 (1.1-1.8); Anion Gap 11.9 mEq/L (5.0-15.0); Potassium 3.9 mEq/L (3.5-5.1); Protein, Total 6.5 g/dL (6.4-8.2)
--- NOTE | 2025-01-30 03:46 | ER ---
Nurse's Notes [facility] Name: Jailyn Walls Age: 70 yrs Sex: Female : 1955 Arrival Date: 01/29/2025 Time: 23:12 Bed 26 Private MD: Diagnosis: Flank Pain Presentation: 01/29 23:37 Chief complaint: Patient states: I think I passed a kindey stone but my back still bm8 hurts. Coronavirus screen: Vaccine status: Patient reports receiving the 2nd dose of the covid vaccine. At this time, the client does not indicate any symptoms associated with coronavirus-19. Ebola Screen: Patient negative for fever greater than or equal to 101.5 degrees Fahrenheit, and additional compatible Ebola Virus Disease symptoms Patient denies exposure to infectious person. Patient denies travel to an Ebola-affected area in the 21 days before illness onset. No symptoms or risks identified at this time. Initial Sepsis Screen: Does the patient meet any 2 criteria? No. Patient's initial sepsis screen is negative. Does the patient have a suspected source of infection? No. Patient's initial sepsis screen is negative. Risk Assessment: Do you want to hurt yourself or someone else? Patient reports no desire to harm self or others. Onset of symptoms was January 26, 2025. 23:37 Method Of Arrival: Ambulatory bm8 23:37 Acuity: NILSA 3 bm8 Triage Assessment: 23:38 General: Appears in no apparent distress. uncomfortable, Behavior is calm, cooperative, bm8 appropriate for age. Pain: Complains of pain in lumbar area, left low back, right mid back and right low back Pain radiates to pelvis Pain currently is 8 out of 10 on a pain scale. EENT: No deficits noted. No signs and/or symptoms were reported regarding the EENT system. Neuro: No deficits noted. Level of Consciousness is awake, alert, obeys commands, Oriented to person, place, time, situation, Appropriate for age. Cardiovascular: Capillary refill < 3 seconds in bilateral fingers Patient's skin is warm and dry. Respiratory: Airway is patent Respiratory effort is even, unlabored, Respiratory pattern is regular, symmetrical, Breath sounds are clear bilaterally. GI: No signs and/or symptoms were reported involving the gastrointestinal system. : Reports pain in right flank(s), in lower back. Derm: No signs and/or symptoms reported regarding the dermatologic system. Musculoskeletal: No signs and/or symptoms reported regarding the musculoskeletal system. Historical: - Allergies: 23:38 Nitrofurantoin; bm8 - Home Meds: 23:38 metformin 500 mg Oral TG24 daily [Active]; pravastatin 20 mg Oral tab once daily bm8 [Active]; - PMHx: 23:38 Diabetes - NIDDM; Hyperlipidemia; bm8 - PSHx: 23:38 bladder suspension (Hyperlipidemia); bm8 - Immunization history:: Adult Immunizations up to date. - Infectious Disease History:: Denies. - Social history:: Smoking status: Patient denies any tobacco usage or history of. Screenin/18 00:30 [facility] ED Fall Risk Assessment (Adult) History of falling in the last 3 months, jb4 including since admission No falls in past 3 months (0 pts) Confusion or Disorientation No (0 pts) Intoxicated or Sedated No (0 pts) Impaired Gait No (0 pts) Mobility Assist Device Used No (0 pt) Altered Elimination No (0 pt) Score/Fall Risk Level 0 - 2 = Low Risk Oriented to surroundings, Maintained a safe environment. Abuse screen: Denies threats or abuse. Nutritional screening: No deficits noted. Tuberculosis screening: No symptoms or risk factors identified. Assessment: 00:30 General: Appears in no apparent distress. comfortable, Behavior is calm, cooperative, jb4 appropriate for age. Pain: Complains of pain in right low back Pain radiates to anterior aspect of right lateral abdomen and right lower quadrant Pain currently is 2 out of 10 on a pain scale. Neuro: Level of Consciousness is awake, alert, obeys commands, Oriented to person, place, time, situation. Cardiovascular: Patient's skin is warm and dry. Respiratory: Airway is patent Respiratory effort is even, unlabored, Respiratory pattern is regular, symmetrical. : Reports pain in right flank(s). Derm: Skin is intact, Skin is pink, warm \T\ dry. Musculoskeletal: Circulation, motion, and sensation intact. Range of motion: intact in all extremities. 01:08 Reassessment: Pt reports feeling better after urinating and does not want any pain jb4 medication at this time. 02:24 Reassessment: Patient appears in no apparent distress at this time. Patient and/or jb4 family updated on plan of care and expected duration. Pain level reassessed. Patient is alert, oriented x 3, equal unlabored respirations, skin warm/dry/pink. Vital Signs: 01/29 23:37 BP 132 / 66; Pulse 71; Resp 18; Temp 98.7; Pulse Ox 99% ; Weight 68.49 kg; Height 5 ft. bm8 0 in. ; Pain 8/10; 01/30 01:09 BP 115 / 63; Pulse 60; Resp 16; Pulse Ox 96% on R/A; jb4 02:24 BP 138 / 67; Pulse 69; Resp 16; Pulse Ox 95% ; jb4 04:14 BP 126 / 64; Pulse 63; Resp 16 S; Pulse Ox 97% on R/A; lg3 01/29 23:37 Body Mass Index 29.49 (68.49 kg, 152.4 cm) bm8 01/29 23:37 Pain Scale: Adult bm8 ED Course: 01/29 23:15 Patient arrived in ED. jj6 23:21 Car Hsieh MD is Attending Physician. ec2 23:38 Triage completed. bm8 23:38 Arm band placed on left wrist. bm8 01/30 00:00 Patient has correct armband on for positive identification. Placed in gown. Bed in low jb4 position. Call light in reach. Side rails up X 1. Provided Education on: plan of care. 00:29 Hayden Orona, RN is Primary Nurse. jb4 00:57 Inserted saline lock: 20 gauge in right antecubital area, using aseptic technique. jb4 Blood collected. 01:08 CBC with Diff Sent. jb4 01:08 CMP Sent. jb4 01:08 Lipase Sent. jb4 01:08 Urinalysis w/ reflexes Sent. jb4 01:27 CT Abd/Pelvis - Without Contrast In Process Unspecified. EDMS 03:02 No provider procedures requiring assistance completed. jb4 04:14 IV discontinued, intact, bleeding controlled, No redness/swelling at site. Pressure lg3 dressing applied. Administered Medications: 01:07 Drug: NS 0.9% IV 1000 ml IV at 1 bolus Per protocol; to be given as a bolus over 60 jb4 minutes Route: IV; Rate: 1 bolus; Site: right antecubital; 04:15 Follow up: Response: No adverse reaction; IV Status: Completed infusion; IV Intake: lg3 1000ml 02:37 Not Given (Patient Refused): TORadol - [id number] mg IVP once jb4 02:37 Not Given (Patient Refused): ondansetron 4 mg IVP once; over 2 minutes jb4 02:37 Not Given (Patient Refused): morphineor iv 4 mg IVP once over 4 mins jb4 Medication: 04:14 VIS not applicable for this client. lg3 Intake: 04:15 IV: 1000ml; Total: 1000ml. lg3 Outcome: 03:45 Discharge ordered by . [email or web address] 04:14 Discharged to home ambulatory, lg3 04:14 Condition: stable 04:14 Discharge instructions given to patient, Instructed on discharge instructions, follow up and referral plans. Demonstrated understanding of instructions, follow-up care, 04:15 Patient left the ED. lg3 Signatures: Dispatcher [employer] Hayden Brown, RN RN jb4 Beverley Lofton RN RN lg3 Maryanne Mota jj6 Car Hsieh MD MD ec2 Kerwin Beckford RN RN bm8
--- NOTE | 2025-01-30 03:47 | EDPHYS ---
Physician Documentation [facility] Name: Jailyn Walls Age: 70 yrs Sex: Female : 1955 Arrival Date: 01/29/2025 Time: 23:12 Bed 26 Private MD: ED Physician Car Hsieh HPI: 01/30 00:26 This 70 yrs old Female presents to ER via Ambulatory with complaints of Low ec2 Back Pain. 00:26 Patient arrives today for evaluation of right-sided flank pain. Patient reports that ec2 she was told that she has a kidney stone, started on antibiotics for possible urinary tract infection. Patient reports right-sided flank pain has been progressively worse for the past week and has worsened over the past several days. No nausea or vomiting, no diarrhea symptoms.. Historical: - Allergies: 01/29 23:38 Nitrofurantoin; bm8 - Home Meds: 23:38 metformin 500 mg Oral TG24 daily [Active]; pravastatin 20 mg Oral tab once daily bm8 [Active]; - PMHx: 23:38 Diabetes - NIDDM; Hyperlipidemia; bm8 - PSHx: 23:38 bladder suspension (Hyperlipidemia); bm8 - Immunization history:: Adult Immunizations up to date. - Infectious Disease History:: Denies. - Social history:: Smoking status: Patient denies any tobacco usage or history of. ROS: 01/30 00:27 Constitutional: as per hpi ec2 Exam: 00:27 Constitutional: GEN: NAD Head: atraumatic Eyes: EOMI Ears: External ears are ec2 normal. CV: regular rate LUNGS: no respiratory distress ABD: non-distended, soft, tender right flank, not guarding or rigid SKIN: no evidence of rashes MSK: no evidence of trauma Vital Signs: 01/29 23:37 BP 132 / 66; Pulse 71; Resp 18; Temp 98.7; Pulse Ox 99% ; Weight 68.49 kg; Height 5 ft. bm8 0 in. ; Pain 8/10; 01/30 01:09 BP 115 / 63; Pulse 60; Resp 16; Pulse Ox 96% on R/A; jb4 02:24 BP 138 / 67; Pulse 69; Resp 16; Pulse Ox 95% ; jb4 04:14 BP 126 / 64; Pulse 63; Resp 16 S; Pulse Ox 97% on R/A; lg3 01/29 23:37 Body Mass Index 29.49 (68.49 kg, 152.4 cm) bm8 01/29 23:37 Pain Scale: Adult bm8 MDM: 01/29 23:44 Medical Screening Exam initiated ec2 01/30 00:27 Data reviewed: vital signs, nurses notes. ED course: Patient arrives today for right ec2 flank pain. Examination yields abdominal and flank findings as above. Will obtain lab work, urine studies, CT imaging. DDx include processes such as ureteral stone, UTI.. 01:52 ED course: CBC reassuring, metabolic profile with appropriate electrolytes and renal ec2 function. Urine is noninfectious appearing, does have blood present. Lipase within normal ranges. Pending CT imaging.. 03:45 ED course: CT imaging shows intraluminal gas in the bladder. Urine is noninfectious ec2 appearing. No recent instrumentation, instructed patient follow-up with PCP. Otherwise lab work and imaging nonacute. Return precautions given.. 0318 00:26 Order name: CBC with Diff; Complete Time: 01:51 ec2 01/30 00:26 Order name: CMP; Complete Time: 01:51 ec2 01/30 00:26 Order name: Lipase; Complete Time: 01:51 ec2 01/30 00:26 Order name: Urinalysis w/ reflexes; Complete Time: 01:51 ec2 18 00:26 Order name: CT Abd/Pelvis - Without Contrast ec2 01/30 00:26 Order name: IV Saline Lock; Complete Time: 01:08 ec2 01/30 00:26 Order name: Labs collected and sent; Complete Time: 01:08 ec2 Administered Medications: 01:07 Drug: NS 0.9% IV 1000 ml IV at 1 bolus Per protocol; to be given as a bolus over 60 jb4 minutes Route: IV; Rate: 1 bolus; Site: right antecubital; 04:15 Follow up: Response: No adverse reaction; IV Status: Completed infusion; IV Intake: lg3 1000ml 02:37 Not Given (Patient Refused): TORadol - mg IVP once jb4 02:37 Not Given (Patient Refused): ondansetron 4 mg IVP once; over 2 minutes jb4 02:37 Not Given (Patient Refused): morphineor iv 4 mg IVP once over 4 mins jb4 Disposition Summary: 01/30/25 03:45 Discharge Ordered Notes: Location: Home ec2 Condition: Stable ec2 Diagnosis - Flank Pain ec2 Followup: ec2 - With: Private Physician - When: - Reason: Recheck today's complaints, Re-evaluation by your physician Discharge Instructions: - Discharge Summary Sheet ec2 - Flank Pain, Adult, [id number] ec2 Forms: - Medication Reconciliation Form ec2 - Antibiotic Education ec2 - Prescription Opioid Use ec2 - Patient Portal Instructions ec2 - Leadership Thank You Letter ec2 Signatures: Dispatcher [employer] EDMS Hayden Orona, RN RN jb4 Car Hsieh MD MD ec2 Kerwin Beckford, RAFAEL RN bm8 Beverley Lofton RN lg3 Corrections: (The following items were deleted from the chart) 00:27 00:27 CBC+H.LAB.BRZ ordered. EDMS EDMS 00:27 00:27 COMPREHENSIVE METABOLIC PANEL+C.LAB.BRZ ordered. EDMS EDMS 00:27 00:27 LIPASE+C.LAB.BRZ ordered. EDMS EDMS 00:27 00:27 Urinalysis+U.LAB.BRZ ordered. EDMS EDMS 00:27 00:27 Abdomen Pelvis Wo Con+CT.RAD.BRZ ordered. EDMS EDMS
[2025-01-30 04:19] VITALS: TEMP 98.7
[2025-01-30 04:22] VITALS: BP 126/64; O2SAT 97
--- NOTE | 2025-01-30 06:24 | RAD REPORT ---
PROCEDURE: CT Abdomen and Pelvis Without Intravenous Contrast CLINICAL INDICATION: The patient is 70 years old and is Female; R sided flank pain NO CONTRAST Bed Name: 26 TECHNIQUE: Axial computed tomography images of the abdomen and pelvis without intravenous contrast. Sagittal a nd coronal reformatted images were created and reviewed. This CT exam was performed using one or more of the following dose reduction techniques: automated exposure control, adjustment of the mA a nd/or kV according to patient size, and/or use of iterative reconstruction technique. COMPARISON: 02/19/2022 CT abdomen pelvis FINDINGS: LUNG BASES: Unremarkable No mass. No consolidation. ABDOMEN: LIVER: Unremarkable GALLBLADDER AND BILE DUCTS: Cholecystectomy clips noted in the gallbladder fossa. No greater than e xpected ductal dilatation. PANCREAS: Unremarkable No ductal dilation. SPLEEN: Unremarkable No splenomegaly. ADRENALS: Unremarkable No mass. KIDNEYS AND URETERS: Simple right-sided renal cysts. No follow-up of these simple cysts is necess mukesh. No obstructing stones. No hydronephrosis. STOMACH AND BOWEL: Fecalization contents of multiple loops of small bowel. Nonspecific, but suggest s decreased motility. Moderate colonic stool burden. Colonic diverticulosis without evidence of acute diverticulitis. No evidence of small or large bowel obstruction. No perienteric or pericolonic fat stranding or abnormal mucosal thickening. PELVIS: APPENDIX: No findings to suggest acute appendicitis. BLADDER: Small volume antidependent intraluminal gas within the urinary bladder lumen. This appears similar to reference exam. No stones. REPRODUCTIVE: Unremarkable as visualized. ABDOMEN and PELVIS: INTRAPERITONEAL SPACE: Unremarkable No free air. No significant fluid collection. BONES/JOINTS: Mild dextroscoliotic curvature of the lumbar spine. Large Schmorl's node involving the superior endplate of the L4 vertebral body. No acute fracture. No dislocation. SOFT TISSUES: Unremarkable VASCULATURE: Mild calcified atherosclerosis of the abdominal aorta without aneurysmal dilatation. LYMPH NODES: Unremarkable No enlarged lymph nodes. OTHER FINDINGS: Multilevel diffuse disc bulges at the L2-3 through L5-S1 levels with no high-grade spinal canal or neuroforaminal stenosis. IMPRESSION: 1. Small volume antidependent intraluminal gas within the urinary bladder lumen. This appears simil ar to reference exam. Recommend clinical correlation with history of recent Martinez catheterization. Otherwise cannot exclude a possible nonvisualized fistulous formation between the urinary bladder and adjacent vaginal canal. No intramural gas or perivesicular inflammation to suggest emphysematous cystitis. 2. Fecalization contents of multiple loops of small bowel. Nonspecific, but suggests decreased rocael lity. 3. Otherwise, allowing for lack of intravascular contrast, no acute abnormality of the abdomen or p dharmesh. 4. Additional nonacute findings as above. Electronically signed by: Ashutosh Joy MD 01/30/2025 03:35 AM CDT RP Due to temporary technical issues with the PACS/[employer] reporting system, reports are being annita d by the in-house radiologist without review as a courtesy to ensure prompt reporting the interpreting radiologist is fully responsible for the content of the report. Transcribed Date/Time: 01/30/2025 6:24 AM
== END 2025-01-30 04:15 | disposition home or self-care (01) ==
LOC: ER 23:12
DX: R10.9 Unspecified abdominal pain (principal); M54.50 Low back pain, unspecified; E11.9 Type 2 diabetes mellitus without complications; E78.5 Hyperlipidemia, unspecified
CPT/HCPCS: 96361; 85025; 81001; 36415; 83690; 80053; 74176; 96360; 99284; J7030